=== PATIENT | female | born 1980 | race Caucasian/White ===

== ENCOUNTER 2023-01-13 09:25 | Emergency (ER) | payer MEDICARE, MEDICAID, SELFPAY ==
[2023-01-13 09:30] VITALS: BP 154/94; PULSE 92; RESP 20; TEMP 36.6; O2SAT 97; BMI 25.8
--- NOTE | 2023-01-13 09:40 | XR_ITS ---
The [address] [address] Patient Name: ORALIA WHITFIELD MRN: [id number] date: 1980 Sex: F Assigned Patient Location: ED.MAIN Current Patient Location: ER Accession/Order Number: [id number] Exam Date: 01/13/2023 10:19 Report Date: 01/13/2023 10:48 At the request of: JESSIKA HERNANDEZ Procedure: XR shoulder LT min 2V PROCEDURE: XR shoulder LT min 2V HISTORY: left shoulder pain ; found on floor; left shoulder bruising COMPARISON: None. FINDINGS: BONES:Acute fracture of the distal left clavicle with inferior displacement of the distal and proximally one full bone width. Intact appearance of the acromioclavicular joint and glenohumeral joint. SOFT TISSUES:No visible soft tissue swelling. EFFUSION:None visible. OTHER: Negative. XR/XR shoulder LT min 2V IMPRESSION: 1. Acute, inferiorly displaced fracture of the distal left clavicle. Electronically authenticated by: DELMY CHÁVEZ Date: 01/13/2023 10:48
--- NOTE | 2023-01-13 09:40 | XR_ITS ---
The [address] [address] Patient Name: ORALIA WHITFIELD MRN: [id number] date: 1980 Sex: F Assigned Patient Location: ED.MAIN Current Patient Location: ER Accession/Order Number: [id number] Exam Date: 01/13/2023 10:19 Report Date: 01/13/2023 10:51 At the request of: JESSIKA HERNANDEZ Procedure: XR hip LT 2V w/ pelvis PROCEDURE: XR hip LT 2V w/ pelvis HISTORY: left hip pain ; found on ground COMPARISON: None. FINDINGS: BONES:No fracture, acute abnormality, or significant arthropathy. SOFT TISSUES:No visible soft tissue swelling. EFFUSION:None visible. OTHER: Negative. XR/XR hip LT 2V w/ pelvis IMPRESSION: 1. No acute bone abnormality or significant degenerative changes. Electronically authenticated by: DELMY CHÁVEZ Date: 01/13/2023 10:51
--- NOTE | 2023-01-13 10:54 | ED.GENADUL1 ---
HPI - General Adult General Chief complaint: Extremity Injury, Upper Stated complaint: POSS. DISLOCATION L SHOULDER Time Seen by Provider: 01/13/23 09:34 Source: caregiver Mode of arrival: walk-in Limitations: language barrier History of Present Illness HPI narrative: patient fell yesterday and injured the left thigh and the left shoulder. She received motrin this morning for pain. [facility]. No injury to the head or neck and no LOC. She is able to ambulate Related Data Home Medications Medication Instructions Recorded Confirmed benztropine 2 mg tablet 2 mg PO DAILY 01/13/23 01/13/23 cholecalciferol (vitamin D3) 50 50 mcg PO DAILY 01/13/23 01/13/23 mcg (2,000 unit) tablet divalproex 500 mg tablet,extended 1,000 mg PO BEDTIME 01/13/23 01/13/23 release 24 hr estradiol 1 mg tablet 1 mg PO DAILY 01/13/23 01/13/23 fluphenazine HCl 5 mg tablet 5 mg PO TID 01/13/23 01/13/23 fluvoxamine 100 mg tablet 100 mg PO DAILY 01/13/23 01/13/23 loratadine 10 mg tablet 10 mg PO Q24H 01/13/23 01/13/23 melatonin 5 mg tablet 5 mg PO BEDTIME 01/13/23 01/13/23 nitrofurantoin macrocrystal 100 mg 100 mg PO Q24H 01/13/23 01/13/23 capsule omeprazole 40 mg capsule,delayed 40 mg PO DAILY 01/13/23 01/13/23 release paliperidone 6 mg tablet,extended 12 mg PO Q24H 01/13/23 01/13/23 release 24 hr Allergies Allergy/AdvReac Type Severity Reaction Status Date / Time morphine Allergy Unknown Verified 01/13/23 09:35 Milk Containing Products AdvReac Unknown Verified 01/13/23 09:35 (Dairy) Exam Narrative Exam Narrative: Nurses note and vital signs reviewed and patient is not hypoxic. afebrile General: The patient appears well and in no apparent distress. Patient is resting comfortably on cart. GCS = 15. Skin: Warm, dry, no pallor noted. Head: Normocephalic, atraumatic Neck: Supple, trachea mid-line. Full ROM and no cervical spinal tenderness. Eyes: PERRLA, EOMI ENT: TMs clear, no hemotympanum detected, no blood in posterior oropharynx Cardiovascular: Regular Rate and Rhythm Respiratory: Patient is in no distress, no accessory muscle use, lungs are clear to auscultation, no wheezing, rales or rhonchi Chest Wall: no tenderness, no flail chest, contusion, abrasion, or signs of trauma. Back: No thoracic or lumbar tenderness to palpation. Negative straight leg raise bilaterally. Musculoskeletal: Tenderness, swelling and ecchymosis to the left clavicle and left shoulder. Remainder of left UE is normal. Tenderness and ecchymosis to the left proximal thigh laterally and into the left hip. No bony tenderness to the left thigh/femur, left knee, ankle or foot. Pulses at femoral, DP, PT, and popliteal were 2+ bilaterally. Moves all four extremities in all modalities with 5/5 strength. GI: Normal bowel sounds, no tenderness to palpation, no masses appreciated. No rebound, guarding, or rigidity noted. Neurological: awake and alert, follows commands and answwers basic questions. Normal equal oncology consultant strength, normal motor, normal sensory, no truncal ataxia or unsteady gait. Psychiatric: Cooperative Constitutional Vital Signs, click to edit/add: Last Vital Signs Temp 97.8 F 01/13/23 09:30 Pulse 92 H 01/13/23 09:30 Resp 20 01/13/23 09:30 BP 154/94 H 01/13/23 09:30 Pulse Ox 97 01/13/23 09:30 O2 Del Method Room Air 01/13/23 09:30 Course Vital Signs Vital signs: Vital Signs Temperature 97.8 F 01/13/23 09:30 Pulse Rate 92 H 01/13/23 09:30 Respiratory Rate 20 01/13/23 09:30 Blood Pressure 154/94 H 01/13/23 09:30 Pulse Oximetry 97 01/13/23 09:30 Oxygen Delivery Method Room Air 01/13/23 09:30 Temperature 97.8 F 01/13/23 09:30 Pulse Rate 92 H 01/13/23 09:30 Respiratory Rate 20 01/13/23 09:30 Blood Pressure 154/94 H 01/13/23 09:30 Pulse Oximetry 97 01/13/23 09:30 Oxygen Delivery Method Room Air 01/13/23 09:30 Medical Decision Making MDM Narrative Medical decision making narrative: acute left clavicle fracture identified. Pelvic and hip xrays unremarkable. Dr Fernandez informed and will see the patient on Tuesday at 830am. ED nurse applied a sling to the patient's left UE - patient neurovascularly intact distally afterward. Imaging Data xr shoulder: Radiologist's impression: Patient Name: ORALIA WHITFIELD MRN: [id number] date: 1980 Sex: F Assigned Patient Location: ED.MAIN Current Patient Location: ER Accession/Order Number: [id number] Exam Date: 01/13/2023 10:19 Report Date: 01/13/2023 10:48 At the request of: JESSIKA HERNANDEZ Procedure: XR shoulder LT min 2V PROCEDURE: XR shoulder LT min 2V HISTORY: left shoulder pain ; found on floor; left shoulder bruising COMPARISON: None. FINDINGS: BONES:Acute fracture of the distal left clavicle with inferior displacement of the distal and proximally one full bone width. Intact appearance of the acromioclavicular joint and glenohumeral joint. SOFT TISSUES:No visible soft tissue swelling. EFFUSION:None visible. OTHER: Negative. IMPRESSION: 1. Acute, inferiorly displaced fracture of the distal left clavicle. Electronically authenticated by: SEBASTIEN CHÁVEZ Date: 01/13/2023 10:48 xr left hip & pelvis: Radiologist's impression: Patient Name: ORALIA WHITFIELD MRN: [id number] date: 1980 Sex: F Assigned Patient Location: ED.MAIN Current Patient Location: ER Accession/Order Number: [id number] Exam Date: 01/13/2023 10:19 Report Date: 01/13/2023 10:51 At the request of: JESSIKA HERNANDEZ Procedure: XR hip LT 2V w/ pelvis PROCEDURE: XR hip LT 2V w/ pelvis HISTORY: left hip pain ; found on ground COMPARISON: None. FINDINGS: BONES:No fracture, acute abnormality, or significant arthropathy. SOFT TISSUES:No visible soft tissue swelling. EFFUSION:None visible. OTHER: Negative. IMPRESSION: 1. No acute bone abnormality or significant degenerative changes. Electronically authenticated by: SEBASTIEN CHÁVEZ Date: 01/13/2023 10:51 Discharge Plan Discharge Chief Complaint: Extremity Injury, Upper Clinical Impression: Contusion of left hip and thigh, Abrasion, Fracture of clavicle, left, closed Patient Disposition: Home, Self-Care Time of Disposition Decision: 10:52 Prescriptions / Home Meds: No Action omeprazole 40 mg capsule,delayed release(DR/EC) 40 mg PO DAILY estradiol 1 mg tablet 1 mg PO DAILY paliperidone 6 mg tablet extended release 24hr 12 mg PO Q24H fluphenazine HCl 5 mg tablet 5 mg PO TID benztropine 2 mg tablet 2 mg PO DAILY fluvoxamine 100 mg tablet 100 mg PO DAILY divalproex 500 mg tablet extended release 24 hr 1,000 mg PO BEDTIME loratadine 10 mg tablet 10 mg PO Q24H melatonin 5 mg tablet 5 mg PO BEDTIME nitrofurantoin macrocrystal 100 mg capsule 100 mg PO Q24H cholecalciferol (vitamin D3) 50 mcg (2,000 unit) tablet 50 mcg PO DAILY Instructions: Clavicle Fracture (ED), Contusion in Adults (ED) Stand Alone Forms: Portal Instructions Referrals: Sebastien Fernandez MD [Physician] - 01/17/23 (call today to schedule an appointment Tuesday)
== END 2023-01-13 11:05 | disposition home or self-care (01) ==
PROVIDERS: Emergency Provider Emergency Medicine
DX: S42.032A Displaced fracture of lateral end of left clavicle, initial encounter for closed fracture (principal); S70.02XA Contusion of left hip, initial encounter; S70.12XA Contusion of left thigh, initial encounter; S40.212A Abrasion of left shoulder, initial encounter; W19.XXXA Unspecified fall, initial encounter; Z79.899 Other long term (current) drug therapy
CPT/HCPCS: 73030; 73502; 99284

== ENCOUNTER 2023-02-14 08:25 | Outpatient (OUT) | payer MEDICARE, MEDICAID, SELFPAY ==
--- NOTE | 2023-02-14 08:30 | XR_ITS ---
The [address] [address] Patient Name: ORALIA WHITFIELD MRN: [id number] date: 1980 Sex: F Assigned Patient Location: [facility] Current Patient Location: [facility] Accession/Order Number: [id number] Exam Date: 02/14/2023 08:30 Report Date: 02/14/2023 09:15 At the request of: DELMY JACINTO Procedure: XR clavicle LT Exam: Radiographs: XR clavicle LT Reason for exam: closed non displaced fracture of acromial end of left clavic Comparison: Plain films dated 01/13/2023 XR/XR clavicle LT IMPRESSION: Displaced comminuted acute to subacute distal left clavicle fracture with some foreshortening present. No definite disruption of the AC joint. Appearance is similar to that on 01/13/2023 although the degree of foreshortening may be slightly worsened. Remainder of the left clavicle radiographs is unremarkable. Electronically authenticated by: DONNELL FELIX Date: 02/14/2023 09:15
== END 2023-02-14 08:26 | disposition home or self-care (01) ==
LOC: RAD 08:25
PROVIDERS: Visit Provider Orthopaedic Surgery
DX: S42.035A Nondisplaced fracture of lateral end of left clavicle, initial encounter for closed fracture (principal)
CPT/HCPCS: 73000

== ENCOUNTER 2023-03-14 08:27 | Outpatient (OUT) | payer MEDICARE, MEDICAID, SELFPAY ==
--- NOTE | 2023-03-14 08:42 | XR_ITS ---
[address] [address] Patient Name: ORALIA WHITFIELD MRN: [id number] date: 1980 Sex: F Assigned Patient Location: [facility] Current Patient Location: [facility] Accession/Order Number: [id number] Exam Date: 03/14/2023 08:50 Report Date: 03/14/2023 10:19 At the request of: DELMY JACINTO Procedure: XR clavicle LT PROCEDURE: XR clavicle LT COMPARISON: 02/14/2023 HISTORY: Closed Nondisplaced Fracture Of Left Clavical S42.035A FINDINGS: BONES:Stable complex distal left clavicle fracture with cranial displacement of the proximal clavicle of 1.8 cm. Interval development of heterotopic ossification/callus SOFT TISSUES:Negative. No visible soft tissue swelling. EFFUSION:None visible. OTHER: Negative. XR/XR clavicle LT IMPRESSION: Stable distal clavicle fracture Electronically authenticated by: BRITANY KAPOOR Date: 03/14/2023 10:19
== END 2023-03-14 08:28 | disposition home or self-care (01) ==
LOC: RAD 08:27
PROVIDERS: Visit Provider Orthopaedic Surgery
DX: S42.035A Nondisplaced fracture of lateral end of left clavicle, initial encounter for closed fracture (principal)
CPT/HCPCS: 73000

== ENCOUNTER 2023-04-11 10:03 | Outpatient (OUT) | payer MEDICARE, MEDICAID, SELFPAY ==
--- NOTE | 2023-04-11 10:10 | XR_ITS ---
The [address] [address] Patient Name: ORALIA WHITFIELD MRN: [id number] date: 1980 Sex: F Assigned Patient Location: [facility] Current Patient Location: [facility] Accession/Order Number: [id number] Exam Date: 04/11/2023 10:13 Report Date: 04/11/2023 16:46 At the request of: DELMY JACINTO Procedure: XR clavicle LT EXAM: XR clavicle LT HISTORY: Closed Nondisplaced Fracture Acromial End Left Clavicle COMPARISON: Left clavicle series dated 03/14/2023. TECHNIQUE: 2 view left clavicle series performed. FINDINGS: Stable acute comminuted displaced fracture of the distal left clavicle. There are no findings of healing such as osteolysis of the fracture margins, periostitis, callus or osseous union. The left AC joint is otherwise maintained. The left glenohumeral reticulation is unremarkable. Visualized portions of the ribs are unremarkable. XR/XR clavicle LT IMPRESSION: Stable acute comminuted displaced fracture of the distal left clavicle. There are no findings of healing such as osteolysis of the fracture margins, periostitis, callus or osseous union. Electronically authenticated by: MARCOS RIOS Date: 04/11/2023 16:46
== END 2023-04-11 10:04 | disposition home or self-care (01) ==
LOC: RAD 10:03
PROVIDERS: Visit Provider Orthopaedic Surgery
DX: S42.035A Nondisplaced fracture of lateral end of left clavicle, initial encounter for closed fracture (principal)
CPT/HCPCS: 73000

== ENCOUNTER 2023-12-31 17:32 | Emergency (ER) | payer MEDICARE, MEDICAID, SELFPAY ==
--- OUTSIDE RECORDS SUMMARY | 2023-12-31 17:59 | XMS_ITS | CCD ---
[facility] Organization [facility] Team Providers Care Billboard Installer Name Role Phone KIERAN DIAZ Unavailable Unavailable NICKIE DESHPANDE Admitting Unavailable NICKIE DESHPANDE Attending Unavailable INDY GRUBER Primary Care Unavailable NICKIE DESHPANDE Consulting Unavailable DR DELMY CHÁVEZ Consulting Unavailable Francis ENRIQUEZ, Roxana Buchanan Referring Unavailable Rashi Gruber MD Primary Care Unavailable Rosa Call Attending Unavailable Yasmani ANDRES, Rashi Nugent Primary Care Unavailable Wayne Coronel MD Attending Unavailable Rashi Gruber MD Primary Care Unavailable Berna ANDRES, Wayne Galvan Attending Unavailable Yasmani ANDRES, Rashi Nugent Primary Care Unavailable Berna ANDRES, Wayne Galvan Attending Unavailable Yasmani ANDRES, Rashi Nugent Primary Care Unavailable Wayne Coronel MD Attending Unavailable Rashi Gruber MD Primary Care Unavailable Wayne Coronel MD Attending Unavailable Rashi Gruber MD Primary Care Unavailable Wayne Coronel MD Attending Unavailable Rashi Gruber MD Primary Care Unavailable Francis ENRIQUEZ, Roxana Buchanan Attending Unavailable Rashi Gruber MD Primary Care Unavailable Wayne Coronel MD Attending Unavailable Rashi Gruber MD Primary Care Unavailable Wayne Coronel MD Attending Unavailable Rashi Gruber MD Primary Care Unavailable Francis ENRIQUEZ, Roxana Buchanan Attending Unavailable Rashi Gruber MD Primary Care Unavailable Francis ENRIQUEZ, Roxana Buchanan Attending Unavailable Francis ENRIQUEZ, Roxana Buchanan Attending Unavailable Rashi Gruber MD Primary Care Unavailable Rashi Gruber MD Primary Care Unavailable Berna ANDRES, Wayne Galvan Attending Unavailable Yasmani ANDRES, Rashi Nugent Primary Care Unavailable Yasmani ANDRES, Rashi Nugent Attending Unavailable Yasmani ANDRES, Rashi Nugent Primary Care Unavailable Yasmani ANDRES, Rashi Nugent Attending Unavailable Yasmani ANDRES, Rashi Nugent Primary Care Unavailable Dany ENRIQUEZ, Rosa James Attending Unavailable Allergies Allergy Classification Reported Allergen(s) Allergy Type Date of Onset Reaction(s) Facility (2 sources) Morphine; Translations: [morphine] Drug Allergy [facility] Repository Problems Active Problems Problem Classification Problem Date Documented Da te Episodic/Chronic Developmental disorders (1 source) Unspecified intellectual disabilities; Translations: [UNSPEC INTELLECTUAL DISABILITIES] Onset: 08-24-2022 Chronic E Codes: Fall (1 source) Unspecified fall, initial encounter; Translations: [UNSPECIFIED FALL INITIAL ENCOUNTER] Onset: 08-24-2022 Episodic Other aftercare (1 source) Other rodent exterminator (current) drug therapy; Translations: [OTH BAND BIAS MACHINE OPERATOR CURRENT DRUG THERAPY] Onset: 08-24-2022 Episodic Other connective tissue disease (3 sources) Other specified soft tissue disorders; Translations: [OTHER SPEC SOFT TISSUE DISORDERS] Onset: 08-23-2022 Episodic Other injuries and conditions due to external causes (1 source) Injury of head; Translations: [Head Injury] Onset: 10-08-2017 Episodic Superficial injury; contusion (1 source) Contusion of left foot, initial encounter; Translations: [CONTUSION LEFT FOOT INITIAL ENC] Onset: 08-24-2022 Episodic Unclassified (1 source) Unspecified injury of head, initial encounter / S09.90XA(ICD-10) Onset: 10-08-2017 Unclassified (1 source) Unknown / UNK(Unknown) Onset: 10-08-2017 Unclassified (1 source) Head Injury / [id number]() Onset: 10-08-2017 Unclassified (1 source) Wrist Injury / [id number]() Onset: 10-08-2017 Unclassified (1 source) Unspecified fracture of lower end of right ulna, initial encounter for closed fracture / S52.601A(ICD-10) Onset: 10-08-2017 Unclassified (1 source) Unspecified fracture of the lower end of right radius, initial encounter for closed fracture / S52.501A(ICD-10) Onset: 10-08-2017 Past or Other Problems Problem Classification Problem Date Documented Da te Episodic/Chronic Unclassified (1 source) Unspecified fracture of the lower end of right radius, initial encounter for closed fracture; Translations: [Unspecified fracture of the lower end of right radius, initial encounter for closed fracture] Onset: 10-08-2017 Unclassified (1 source) Unspecified fracture of lower end of right ulna, initial encounter for closed fracture; Translations: [Unspecified fracture of lower end of right ulna, initial encounter for closed fracture] Onset: 10-08-2017 Unclassified (1 source) Unspecified injury of head, initial encounter; Translations: [Unspecified injury of head, initial encounter] Onset: 10-08-2017 Unclassified (1 source) head injury, R wrist inj, fall Onset: 10-08-2017 Unclassified (1 source) Wrist Injury; Translations: [Wrist Injury] Onset: 10-08-2017 Results Test Name Value Interpretation Reference Range Facility .eGFRon 12-26-2023 GFR/1.73 sq M.predicted MDRD (S/P/Bld) [Vol rate/Area] mL/min/{1.73_m2} Normal >=60 [facility] Comment on above: Result Comment: [facility] have implemented the eGFR calculation approach that does not have a coefficient for race and that conforms to the NKF-ASN Task Force Recommendations. Stages of Chronic Kidney Disease GFR Stage 3a Mild to moderate loss of kidney function 59 to 45 Stage 3b Moderate to severe loss of kidney function 44 to 33 Stage 4 Severe loss of kidney function 29 to 15 Stage 5 Kidney failure Less than 15 GFR calculated using the CKD-Epi Creatinine Equation (2020): eGFR = 142 X min(SCr/?, 1)? X max(SCr /?, 1)-1.200 X 0.9938Age X 1.012 [if female] Abbreviations/Units: eGFR (estimated glomerular filtration rate) = mL/min/1.73 m2 SCr (standardized serum creatinine) = mg/dL ? = 0.7 (females) or 0.9 (males) ? = -0.241 (females) or -0.302 (males) min = indicates the minimum of SCr/? or 1 max = indicates the maximum of SCr/? or 1 Age = years Performed By: #### E GFR #### [address] [address] Basic Metabolic Profileon Anion gap [Moles/Vol] 9 mmol/L Normal 4-12 [facility] Comment on above: Performed By: #### C [id number] #### [address] [address] Calcium [Mass/Vol] 9.5 mg/dL Normal 8.5-10.3 [facility] Comment on above: Performed By: #### C [id number] #### [address] [address] Chloride [Moles/Vol] 100 mmol/L Normal 98-110 [facility] Comment on above: Performed By: #### C [id number] #### [address] [address] CO2 [Moles/Vol] 24 mmol/L Normal 22-32 [facility] Comment on above: Performed By: #### C [id number] #### [address] [address] Creatinine [Mass/Vol] 0.86 mg/dL Normal 0.44-1.03 [facility] Comment on above: Performed By: #### C [id number] #### [address] [address] Glucose [Mass/Vol] 82 mg/dL Normal 70-99 [facility] Comment on above: Performed By: #### C [id number] #### [address] [address] Potassium [Moles/Vol] 4.4 mmol/L Normal 3.4-4.8 [facility] Comment on above: Performed By: #### C [id number] #### [address] [address] Sodium [Moles/Vol] 133 mmol/L Normal 133-142 [facility] Comment on above: Performed By: #### C [id number] #### [address] [address] Urea nitrogen [Mass/Vol] 16 mg/dL Normal 8-26 [facility] Comment on above: Performed By: #### C [id number] #### [address] [address] Urea nitrogen/Creatini ne [Mass ratio] 18.6 mg/mg Normal 10.0-20.0 [facility] Comment on above: Performed By: #### C [id number] #### [address] [address] CBC w/ Diffon 12-26-2023 Erythrocyte distribution width (RBC) [Ratio] 14.9 % High 11.6-14.8 [facility] Comment on above: Performed By: #### C BC #### [address] [address] Hematocrit (Bld) [Volume fraction] 37.8 % Normal 36.0-46.0 [facility] Comment on above: Performed By: #### C BC #### [address] [address] Hemoglobin (Bld) [Mass/Vol] 12.4 g/dL Normal 12.0-16.0 [facility] Comment on above: Performed By: #### C BC #### [address] [address] MCH (RBC) [Entitic mass] 30.2 pg Normal 27.0-35.0 [facility] Comment on above: Performed By: #### C BC #### [address] [address] MCHC 32.9 % Normal 31.0-37.0 [facility] Comment on above: Performed By: #### C BC #### [address] [address] MCV (RBC) [Entitic vol] 91.7 fL Normal 80.0-100.0 [facility] Comment on above: Performed By: #### C BC #### [address] [address] Platelet 149 x10*3/mcL Low 150-450 [facility] Comment on above: Performed By: #### C BC #### [address] [address] Platelet mean volume (Bld) [Entitic vol] 8.7 fL Normal 6.7-10.6 [facility] Comment on above: Performed By: #### C BC #### [address] [address] RBC 4.12 x10*6/mcL Normal 3.80-5.20 [facility] Comment on above: Performed By: #### C BC #### [address] [address] WBC 6.0 x10*3/mcL Normal 4.5-11.0 [facility] Comment on above: Performed By: #### C BC #### [address] [address] Diff Autoon 12-26-2023 Baso Absolute 0.0 x10*3/mcL Normal 0.0-0.2 [facility] Comment on above: Performed By: #### C D:[id number] #### [address] [address] Basophils/100 WBC (Bld) 0.5 % Normal 0.0-1.5 [facility] Comment on above: Performed By: #### C [id number] #### [address] [address] Eos Absolute 0.1 x10*3/mcL Normal 0.0-0.4 [facility] Comment on above: Performed By: #### C [id number] #### [address] [address] Eosinophils/100 WBC (Bld) 2.4 % Normal 0.0-5.4 [facility] Comment on above: Performed By: #### C [id number] #### [address] [address] Lymph Absolute 2.4 x10*3/mcL Normal 1.0-4.8 [facility] Comment on above: Performed By: #### C [id number] #### [address] [address] Lymphocytes/100 WBC (Bld) 40.2 % Normal 27.2-40.8 [facility] Comment on above: Performed By: #### C [id number] #### [address] [address] Bureau Absolute 0.5 x10*3/mcL Normal 0.1-1.1 [facility] Comment on above: Performed By: #### C [id number] #### [address] [address] Monocytes/100 WBC (Bld) 7.8 % Normal 3.7-11.9 [facility] Comment on above: Performed By: #### C D:[id number] #### [address] [address] Neutro Absolute 2.9 x10*3/mcL Normal 1.8-7.7 [facility] Comment on above: Performed By: #### C D:[id number] #### [address] [address] Neutro Auto 49.1 % Normal 47.2-70.8 [facility] Comment on above: Performed By: #### C [id number] #### [address] [address] Hep Func Panelon 12-26-2023 Albumin [Mass/Vol] 4.4 g/dL Normal 3.2-4.9 [facility] Comment on above: Performed By: #### L THERESE #### [address] [address] Alk Phos 58 IU/L Normal 32-91 [facility] Comment on above: Performed By: #### L IVER #### [address] [address] ALT [Catalytic activity/Vol] 36 U/L Normal 14-54 [facility] Comment on above: Performed By: #### L IVER #### [address] [address] AST [Catalytic activity/Vol] 27 U/L Normal 15-41 [facility] Comment on above: Performed By: #### L IVER #### [address] [address] Bili Direct 0.1 mg/dL Normal 0.1-0.5 [facility] Comment on above: Performed By: #### L IVER #### [address] [address] Bili Indirect 0.4 mg/dL Normal 0.0-1.0 [facility] Comment on above: Performed By: #### L IVER #### [address] [address] Bili Total 0.5 mg/dL Normal 0.3-1.2 [facility] Comment on above: Performed By: #### L IVER #### [address] [address] Protein [Mass/Vol] 7.8 g/dL Normal 6.5-8.1 [facility] Comment on above: Performed By: #### L IVER #### [address] [address] TSHon 12-26-2023 TSH Qn 2.13 m[IU]/L Normal 0.45-5.33 [facility] Comment on above: Result Comment: Refe rence Ranges for individuals from to 18 years of age were obtained from The Stacy Hilton Handbook (20 ed) published by [facility]. Reference Ranges for Females: Females, 1st Trimester 0.05 ? 3.7 uIU/mL Females, 2nd Trimester 0.31 ? 4.35 uIU/mL Females, 3rd Trimester 0.41 ? 5.18 uIU/mL Performed By: #### T #### [facility] [address] [place] [address] Valproicon 12-26-2023 Valproic Acid Level 102.3 mcg/mL High 50.0-100.0 [facility] Comment on above: Performed By: #### C D:[id number] #### [facility] [address] [place] [address] Urology Office/Clinic Noteon 11-11-2023 Urology Office/Clinic Note Chief Complaint New patient here for urinary inciontinence. History of Present Illness Last seen by our urological team New referral for urinary incontinence and frequency. Patient comes with: Caregiver 43 Years, Female Progress This is a 9 verbal patient who comes with her caregivers. Of the information obtained was from the caregivers. Main concern is the patient's urinary incontinence and frequency. They states this has been going on for approximately 1 year however has become worse over the last several months. She was treated for UTI prophylactically without relief of symptoms. They are unsure if this is a behavior caused by a visit home. They placed the patient in pads and used Chux pads and she was out of her typical toileting routine. Also concerned that may be it is a progression of a problem. She typically urinates every hour, they are currently doing timed voids to attempt to decrease incontinence episodes. She still has incontinence during the day, using 10+ pads. She does have a strong stream. Postvoid dribble. Empties her bladder well current PVR is 12 mL. No signs or symptoms of infection via urine dip today. She drinks mainly water, no bladder irritants. Discussed attempting medication for urinary frequency and incontinence. Review of Systems unable to obtain ROS due to patient non verbal status Physical Exam Vitals & Measurements HT: 149 cm WT: 75.5 kg WT: 75.5 kg (Dosing) BMI: 34.01 General: alert, non-toxic, no distress, well developed Neuro: no slurred speech, appropriate with questions and responses : deferred recent pelvic exam performed by PANEL RAISER OPERATOR, negative findings per their report Additional Vitals No qualifying data available. Assessment/Plan 1. Urinary incontinence Worsening incontinence over the last several months. She went from having some leakage with urination to now requiring pads/depends as well as extra pads on the bed/chairs. Tensional behavior as she was taken out of her routine and voiding schedule. Staff is attempting to get her back on timed voiding's and toileting habits. Will start mirabegron 50 mg to evaluate for efficacy. This may assist patient with her incontinence. Follow-up in 1 to 2 months. 2. Urinary frequency Discussed bladder irritants. Patient is not drinking any caffeine, soda, coffee, tea. Starting medication as above Orders: mirabegron, 1 tabs, Oral, Daily, do not crush or chew, # 30 tabs, 0 Refill(s), Pharmacy: [facility] Medical Decision Making Chronic conditions NOT treated during this visit that affected my overall medical decision making: [] Treatment plans discussed but not opted for at this time: [] Prescribed medication that requires intensive monitoring for toxicity: [] I have reviewed the patient?s medication list for medication interactions/contraindic ations and/or for upcoming procedures: [yes] Time Spent with the Patient I have personally spent [] minutes on this date, directly related to today's patient visit, including pre and post visit work, for this date of service. Time listed does not include time spent on separately billable services. Problem List/Past Medical History Ongoing Autism Chronic constipation Fibromyalgia Seizures Historical No qualifying data Procedure/Surgical History pins in wrist oophorectomy total LP hysterectomy Medications benztropine 2 mg oral tablet, 2 mg= 1 tabs, Oral, HS (at bedtime), 3 refills chlorproMAZINE 100 mg oral tablet, 100 mg= 1 tabs, Oral, TID, 2 refills, increased dose divalproex sodium 500 mg oral tablet, extended release, See Instructions, 2 refills, TAKE 2 TABLETS BY MOUTH AT BEDTIME fluvoxaMINE 100 mg oral tablet, See Instructions, 2 refills, TAKE 1 TABLET BY MOUTH AT BEDTIME hydrOXYzine hydrochloride 25 mg oral tablet, See Instructions, TAKE 1 TABLET BY MOUTH THREE TIMES DAILY ibuprofen 200 mg oral tablet, 400 mg= 2 tabs, Oral, q8hr, PRN, 1 refills, 2 tabs every 8 hours as needed for headache or backache loratadine 10 mg oral tablet, 10 mg= 1 tabs, Oral, Daily, 3 refills Melatonin 10 mg oral tablet, disintegrating, 10 mg= 1 tabs, Oral, HS (at bedtime), 1 refills, increased dose mirabegron 50 mg oral tablet, extended release, 50 mg= 1 tabs, Oral, Daily, do not crush or chew nitrofurantoin macrocrystals 100 mg oral capsule, 100 mg= 1 caps, Oral, Daily, 3 refills ohm Allergy Relief 10 mg oral tablet, 90 EA, 0 Refill(s), TAKE 1 TABLET BY MOUTH DAILY omeprazole 40 mg oral delayed release capsule, 40 mg= 1 caps, Oral, Daily, 3 refills paliperidone 6 mg oral tablet, extended release, See Instructions, 2 refills, TAKE 2 TABLETS BY MOUTH EVERY MORNING Probiotic Formula oral capsule, 1 caps, Oral, Daily, 3 refills RA P-COL RITE 8.6MG/50MG TAB, See Instructions, 6 refills, take 2 tablets by mouth at bedtime RA SENNA 8.6 MG TABLET, See Instructions, 11 refills, take 2 tablets by mouth once daily Vitamin D3 2000 intl units oral tablet, See Instructio (more content not included)... Normal [facility] Gynecology Office/Clinic Not black 09-01-2023 Gynecology Office/Clinic Note Chief Complaint UI, Hx hyst 2006. History of Present Illness Here with Railroad Car Repairman non verbal hyst with ovaries removed. Railroad Car Repairman reports she is sedentary start UI again after trip to [facility] and [facility]. Macrobid daily Review of Systems Cough: No SOB: No Chest pain: No Fatigue: No Fever/chills: No Nausea/vomiting: No Urinary frequency: No Urinary pain: No Back pain: No Abdominal/pelvic pain: No Abnormal vaginal bleeding: No Lower Extremity Bilaterally pain, redness or edema: No Physical Exam Vitals & Measurements BP: 138/86 HT: 149 cm WT: 79.6 kg WT: 79.6 kg (Dosing) BMI: 35.85 General: Alert and oriented x 3, well nourished, no acute distress, Psychiatric: Cooperative, appropriate mood and affect for her medical dx. Urethra: Normal urethral meatus, no lesions, No CVT bilaterally Groin: no lymphadenopathy Vulva: No lesions, skin intact with no discoloration, no inflammation, no obvious cystocele Vagina: unable to tolerate speculum exam Cervix: as above Uterus: Normal shape , non tender, mobile, no suprapubic tenderness Adnexa: Non tender, no masses Anus: No lesions Skin: Skin is warm, dry and pink, no rashes or lesions Additional Vitals BP Position/Location: Sitting, Right arm Assessment/Plan 1. Urinary incontinence in female No evidence of Acute UTI/Pyelonephritis at risk for UTI, unable to get urine and on Macrobid daily 64 oz water daily Minimal caffeine Continue Macrobid daily. Start Keflex with probiotic Call if continued symptoms after ATB and re training bladder. manager collection believes it was due to change in environment and wearing pads at that time. 2. Menopausal state No evidence of vaginal bleeding,OR vaginal infection She will call if vaginal bleeding OTC Vitamin D 2000 IU and weight bearing exercise (30 minutes) daily for bone health At risk for heart attack post menopausal, importance to eat low fat and take Cholesterol medication Stop Estrogen due to sedentary lifestyle and risk for thrombi. Orders: bifidobacterium-lactobac illus, 1 caps, Oral, Daily, # 90 caps, 3 Refill(s), Pharmacy: [facility] cephalexin, 1 caps, Oral, q12hr, X 7 days, # 14 caps, 0 Refill(s), 09/08/23 10:44:00 EDT, Pharmacy: [facility] nitrofurantoin, 1 caps, Oral, Daily, # 90 caps, 3 Refill(s), Pharmacy: [facility] Medical Decision Making Chronic conditions NOT treated during this visit that affected my overall medical decision making: [] Treatment plans discussed but not opted for at this time: [] Prescribed medication that requires intensive monitoring for toxicity: [] I have reviewed the patient?s medication list for medication interactions/contraindic ations and/or for upcoming procedures: [yes or no] Time Spent with the Patient I have personally spent [] minutes on this date, directly related to today's patient visit, including pre and post visit work, for this date of service. Time listed does not include time spent on separately billable services. Problem List/Past Medical History Ongoing Autism Chronic constipation Fibromyalgia Seizures Historical No qualifying data Procedure/Surgical History pins in wrist oophorectomy total LP hysterectomy Laparoscopic hysterectomy Oophorectomy Medications benztropine 2 mg oral tablet, 2 mg= 1 tabs, Oral, HS (at bedtime), 3 refills chlorproMAZINE 100 mg oral tablet, 100 mg= 1 tabs, Oral, BID, 2 refills chlorproMAZINE 50 mg oral tablet, 1 tabs, Oral, BID divalproex sodium 500 mg oral tablet, extended release, See Instructions, 2 refills estradiol 1 mg oral tablet, See Instructions fluvoxaMINE 100 mg oral tablet, See Instructions, 2 refills hydrOXYzine hydrochloride 25 mg oral tablet, See Instructions, 6 refills hydrOXYzine hydrochloride 25 mg oral tablet, 25 mg= 1 tabs, Oral, TID, 1 refills ibuprofen 200 mg oral tablet, 400 mg= 2 tabs, Oral, q8hr, PRN, 1 refills Keflex 500 mg oral capsule, 500 mg= 1 caps, Oral, q12hr loratadine 10 mg oral tablet, 10 mg= 1 tabs, Oral, Daily, 3 refills Melatonin 10 mg oral tablet, disintegrating, 10 mg= 1 tabs, Oral, HS (at bedtime), 1 refills nitrofurantoin macrocrystals 100 mg oral capsule, See Instructions ohm Allergy Relief 10 mg oral tablet omeprazole 40 mg oral delayed release capsule, 40 mg= 1 caps, Oral, Daily, 3 refills paliperidone 6 mg oral tablet, extended release, See Instructions, 2 refills Probiotic Formula oral capsule, 1 caps, Oral, Daily, 3 refills RA P-COL RITE 8.6MG/50MG TAB, See Instructions, 6 refills RA SENNA 8.6 MG TABLET, See Instructions, 11 refills Vitamin D3 2000 intl units oral tablet, See Instructions Allergies morphine (unknown) Social History Alcohol Never Employment/School Unemployed, Highest education level: High school. Home/Environment Lives with Roomates, independant living. Alcohol abuse in household: No. Substance abuse in household: No. Smoker in house (more content not included)... Normal [facility] .eGFRon 04-01-2023 GFR/1.73 sq M.predicted MDRD (S/P/Bld) [Vol rate/Area] mL/min/{1.73_m2} Normal >=60 [facility] Comment on above: Result Comment: [facility] have implemented the eGFR calculation approach that does not have a coefficient for race and that conforms to the NKF-ASN Task Force Recommendations. Stages of Chronic Kidney Disease GFR Stage 3a Mild to moderate loss of kidney function 59 to 45 Stage 3b Moderate to severe loss of kidney function 44 to 33 Stage 4 Severe loss of kidney function 29 to 15 Stage 5 Kidney failure Less than 15 GFR calculated using the CKD-Epi Creatinine Equation (2020): eGFR = 142 X min(SCr/?, 1)? X max(SCr /?, 1)-1.200 X 0.9938Age X 1.012 [if female] Abbreviations/Units: eGFR (estimated glomerular filtration rate) = mL/min/1.73 m2 SCr (standardized serum creatinine) = mg/dL ? = 0.7 (females) or 0.9 (males) ? = -0.241 (females) or -0.302 (males) min = indicates the minimum of SCr/? or 1 max = indicates the maximum of SCr/? or 1 Age = years Performed By: #### C [id number] #### [address] [address] Basic Metabolic Profileon Anion gap [Moles/Vol] 13 mmol/L Normal 7-17 [facility] Comment on above: Performed By: #### C D:[id number] #### [address] [address] Calcium [Mass/Vol] 9.9 mg/dL Normal 8.5-10.3 [facility] Comment on above: Performed By: #### C D:[id number] #### [address] [address] Chloride [Moles/Vol] 105 mmol/L Normal 98-110 [facility] Comment on above: Performed By: #### C [id number] #### [address] [address] CO2 [Moles/Vol] 24 mmol/L Normal 22-32 [facility] Comment on above: Performed By: #### C [id number] #### [address] [address] Creatinine [Mass/Vol] 0.74 mg/dL Normal 0.44-1.03 [facility] Comment on above: Performed By: #### C [id number] #### [address] [address] Glucose [Mass/Vol] 92 mg/dL Normal 70-99 [facility] Comment on above: Performed By: #### C [id number] #### [address] [address] Potassium [Moles/Vol] 4.6 mmol/L Normal 3.4-4.8 [facility] Comment on above: Performed By: #### C [id number] #### [address] [address] Sodium [Moles/Vol] 137 mmol/L Normal 133-142 [facility] Comment on above: Performed By: #### C [id number] #### [address] [address] Urea nitrogen [Mass/Vol] 14 mg/dL Normal 8-26 [facility] Comment on above: Performed By: #### C [id number] #### [address] [address] Urea nitrogen/Creatini ne [Mass ratio] 18.9 mg/mg Normal 10.0-20.0 [facility] Comment on above: Performed By: #### C [id number] #### [address] [address] Hgb A1con 04-01-2023 Glucose [Mass/Vol] 100 mg/dL Normal 68-114 [facility] Comment on above: Result Comment: Math ematical Calc approx. The mean gluc equivalency of A1c Performed By: #### C [id number] #### [address] [address] Hgb A1c 5.1 % A1c Normal 4.0-5.6 [facility] Comment on above: Result Comment: Refe rence Range: 4.0 - 5.6 % Normal 5.7 - 6.4 % Pre-Diabetes > 6.5 % Diabetes Performed By: #### C [id number] #### [facility] [address] [place] [address] C Urineon 02-12-2023 C Urine ---- Final 10-15,000 cfu/ml Mixed gram positive ashwini isolated. This urine contains 3 or more organisms which is inconsistent with clean catch collection. Consider the possibility of contamination during collection. No identification or susceptibility performed as results would be misleading Normal [facility] Comment on above: Performed By: #### U RC #### [address] [address] Family Medicine Office/Clini c Noteon 02-10-2023 Family Medicine Office/Clinic Note Chief Complaint Other History of Present Illness here with printing gray cloth tender concern for possible UTI- reported burning and increase in frequency- no fever; no gross hematuria- is on daily prophylactic antibiotic with nitrofurantoin- had recent (L) clavicular fracture; in sling- appetite reviewed- had recent labs done at [facility]; results not available to me- patient mother had concern for ankle swelling; though no edema notable today- legs are often dependent however- BP appears controlled- Review of Systems Constitutional: [No fevers, chills, sweats] ENMT: [No ear pain, nasal congestion, sore throat] Respiratory: [No shortness of breath, cough] Cardiovascular: [No Chest pain, palpitations, syncope] Gastrointestinal: [No nausea, vomiting, diarrhea] Genitourinary: [see HPI Physical Exam Vitals & Measurements HR: 80 (Peripheral) BP: 128/78 SpO2: 98 HT: 155 cm WT: 82.0 kg WT: 82.0 kg (Dosing) BMI: 34.13 General: [Alert and oriented, well nourished, no acute distress]. HENT: [Normocephalic, clear tympanic membrane Lungs: [Clear to auscultation non-labored respiration]. Heart: [Normal rate, regular rhythm, no murmur Extr: no edema, no erythema, no ulceration Neurologic: [Awake, alert Psychiatric: [Cooperative, appropriate Additional Vitals BP Position/Location: Sitting, Left arm Assessment/Plan 1. Dysuria 2. Autism 3. Seizures 4. 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 Time listed does not include time spent on separately billable services. Problem List/Past Medical History Ongoing Autism Chronic constipation Fibromyalgia Seizures Historical No qualifying data Procedure/Surgical History Laparoscopic hysterectomy oophorectomy Oophorectomy pins in wrist total LP hysterectomy Medications benztropine 2 mg oral tablet, 2 mg= 1 tabs, Oral, HS (at bedtime), 3 refills divalproex sodium 500 mg oral tablet, extended release, See Instructions Estrace 1 mg oral tablet, 1 mg= 1 tabs, Oral, Daily, 11 refills estradiol 1 mg oral tablet, See Instructions fluPHENAZine 5 mg oral tablet, See Instructions fluvoxaMINE 100 mg oral tablet, See Instructions ibuprofen 200 mg oral tablet, 400 mg= 2 tabs, Oral, q8hr, PRN, 1 refills loratadine 10 mg oral tablet, 10 mg= 1 tabs, Oral, Daily, 3 refills Macrodantin 100 mg oral capsule, 100 mg= 1 caps, Oral, Daily, 11 refills Melatonin 5 mg oral tablet, See Instructions omeprazole 40 mg oral delayed release capsule, 40 mg= 1 caps, Oral, Daily, 3 refills paliperidone 6 mg oral tablet, extended release, See Instructions RA P-COL RITE 8.6MG/50MG TAB, See Instructions, 6 refills RA SENNA 8.6 MG TABLET, See Instructions, 11 refills Vitamin D3 2000 intl units oral tablet, 50 mcg= 1 tabs, Oral, Daily, 11 refills Allergies morphine (unknown) Social History Alcohol Never Employment/School Unemployed, Highest education level: High school. Home/Environment Lives with Roomates, independant living. Alcohol abuse in household: No. Substance abuse in household: No. Smoker in household: No. Injuries/Abuse/Neglect in household: No. Financial concerns: No. Sexual Sexually active: No. History of sexual abuse: No. No Substance Abuse Denies All Tobacco Never (less than 100 in lifetime) Use:. Family History Family history is unknown Immunizations Vaccine Date Status influenza virus vaccine, inactivated 03/19/2021 Given influenza virus vaccine, inactivated 03/02/2017 Given Lab Results Test Name Test Result Date/Time Urine Color Urine Dipstick Isabella 02/10/2023 10:28 EDT Urine Appearance Urine Dipstick Clear 02/10/2023 10:28 EDT Specific [place] Urine Dipstick 1.020 02/10/2023 10:28 EDT pH Urine Dipstick 5 02/10/2023 10:28 EDT Protein Urine Dipstick Trace 02/10/2023 10:28 EDT Glucose Urine Dipstick Negative 02/10/2023 10:28 EDT Bilirubin Urine Dipstick Negative 02/10/2023 10:28 EDT Urobilinogen Urine Dipstick 0.2 mg/dl 02/10/2023 10:28 EDT Leukocytes Urine Dipstick Trace 02/10/2023 10:28 EDT Nitrite Urine Dipstick Negative 02/10/2023 10:28 EDT Ketones Urine Dipstick 3+ (>80mg/dL) 02/10/2023 10:28 EDT Blood Urine Dipstick Negative 02/10/2023 10:28 EDT Electronically signed by _ Rashi Gruber MD 02/10/23 10:40 EDT Normal [facility] FOOT LEFT 3 VWSon 02-03-2021 FOOT LEFT 3 [facility] Department of Radiology [address] [place] [id number] == Patient Name: ORALIA WHITFIELD : 1980 Sex: F Age: Race: White Pt. Location: Patient Status: O Ordered Date: 02/03/2021 11:20:00 AM Completed Date: 02/03/2021 11:32 AM Requesting Provider: LA MCKINNON Attending Provider: LA MCKINNON Report Copy To: Signs & Symptoms: S92.345A Nondisp fx of fourth metatarsal bone, left foot, init I10 History: Comments: Evaluate Exam: FOOT LEFT 3 [facility] == FOOT LEFT 3 S 02/03/2021 11:32 AM SIGNS AND SYMPTOMS: S92.345A Nondisp fx of fourth metatarsal bone, left foot, init I10 TECHNOLOGIST COMMENTS: Follow up left foot injury November 2020 QUESTION FOR THE RADIOLOGIST: Evaluate PROTOCOL: AP,Lateral and Oblique views were obtained. COMPARISON: January 06, 2021 FINDINGS: Fractures of the necks of the third, fourth and fifth left metatarsal necks show increasing maturation callus compared to the prior study. Alignment. No additional abnormality is appreciated. IMPRESSION: Healing fractures of left third fourth and fifth metatarsal necks. Electronically signed: Devon Allan. Transcribed by: [email or web address], User Resident: Electronically Signed by: DEVON ALLAN @ 02/03/2021 12:49 PM Normal [facility] Comment on above: Order Comment: Evalu ate FOOT LEFT 3 [facility] 01-06-2021 FOOT LEFT 3 [facility] Department of Radiology [address] [place] [phone] == Patient Name: ORALIA WHITFIELD : 1980 Sex: F Age: Race: White Pt. Location: 84 Patient Status: O Ordered Date: 01/06/2021 9:45:00 AM Completed Date: 01/06/2021 09:49 AM Requesting Provider: LA MCKINNON Attending Provider: LA MCKINNON Report Copy To: Signs & Symptoms: S92.345A Nondisp fx of fourth metatarsal bone, left foot, init I10 History: Comments: evalaute Exam: FOOT LEFT 3 [facility] == FOOT LEFT 3 S 01/06/2021 9:49 AM CLINICAL INDICATIONS: S92.345A Nondisp fx of fourth metatarsal bone, left foot, init I10 TECHNOLOGIST COMMENTS: ortho follow up, left foot injury PROTOCOL: AP,Lateral and Oblique views were obtained. COMPARISON: 12/16/2020 FINDINGS: Redemonstration of nondisplaced fracture of the fourth metatarsal head with interval bony callus formation bridging, in stable alignment. Also redemonstration of linear sclerosis at the third and fifth metatarsal neck which may relate to nondisplaced fractures as well, similar to prior imaging. No acute abnormality of the partially visualized tibia and fibula. Plantar calcaneal spurring. IMPRESSION: * Osseous alignment healing third through fifth metatarsal neck fractures. Approved by:Aamir Wilson01/06/2021 11:20 AM. I, Lenny Law,have reviewed the image(s) and agree with the findings in this report. Electronically signed: Lenny Law. Transcribed by: [email or web address], User Resident: AAMIR LENTZ Electronically Signed by: LENNY LAW @ 01/06/2021 12:04 PM I personally read this/these film(s) with this resident Normal [facility] Comment on above: Order Comment: nacho wu FOOT LEFT 3 VWSon 12-16-2020 FOOT LEFT 3 VWS [facility] Department of Radiology [address] [place] [phone] == Patient Name: ORALIA WHITFIELD : 1980 Sex: F Age: Race: White Pt. Location: Patient Status: D Ordered Date: 12/16/2020 2:05:00 PM Completed Date: 12/16/2020 02:12 PM Requesting Provider: LA MCKINNON Attending Provider: ERROL SELBY Report Copy To: Signs & Symptoms: S92.345A Nondisp fx of fourth metatarsal bone, left foot, init I10 History: Comments: Evaluate Exam: FOOT LEFT 3 VWS == FOOT LEFT 3 S HISTORY: Foot injury, fracture. COMPARISON: None. IMPRESSION: 1. Nondisplaced fracture with subtle healing changes of the fourth metatarsal neck. 2. Additional subtle cortical irregularity along the fifth metatarsal neck is subtle transverse lucency with subtle sclerosis of the third metatarsal neck may reflect additional nondisplaced fractures. Electronically signed: Lenny Law. Transcribed by: [email or web address], User Resident: Electronically Signed by: LENNY LAW @ 12/17/2020 10:25 AM Normal [facility] Comment on above: Order Comment: Evalu ate Urine Cultureon 12-02-2020 Bacteria identified Cx Nom (U) Final report Critically abnormal . [facility] Comment on above: Order Comment: Reaso n for Exam Urge incontinence of urine Performed By: #### U RINE CULTURE #### [facility] , Ur Cult Antimic Suceptibility Normal . [facility] Comment on above: Order Comment: Reaso n for Exam Urge incontinence of urine Result Comment: S = Susceptible; I = Intermediate; R = Resistant P = Positive; N = Negative MICS are expressed in micrograms per mL Antibiotic RSLT#1 RSLT#2 RSLT#3 RSLT#4 Amoxicillin/Clavulanic Acid S Ampicillin S Cefepime S Ceftriaxone S Cefuroxime S Ciprofloxacin S Ertapenem S Gentamicin S Imipenem S Levofloxacin S Meropenem S Nitrofurantoin S Piperacillin/Tazobactam S Tetracycline S Tobramycin S Trimethoprim/Sulfa S Performed at: [facility] [id number] Personal Computer Specialist: Kodak Tracy PhD, Phone: [phone] PERFORMED BY: [place] [id number] PATHOLOGIST SNOWMOBILE MECHANIC ROSA ISELA GORE M.D. Performed By: #### U RINE CULTURE #### [facility] , Urine Culture, Res 1 Escherichia coli Critically abnormal . [facility] Comment on above: Order Comment: Reaso n for Exam Urge incontinence of urine Result Comment: Grea ter than 100,000 colony forming units per mL Cefazolin <=4 ug/mL Cefazolin with an LYNNE <=16 predicts susceptibility to the oral agents cefaclor, cefdinir, cefpodoxime, cefprozil, cefuroxime, cephalexin, and loracarbef when used for therapy of uncomplicated urinary tract infections due to E. coli, Klebsiella pneumoniae, and Proteus mirabilis. Performed By: #### U RINE CULTURE #### [facility] , XR foot LT min 3V*on 021 XR foot LT min 3V* [facility] [place] [address] [place] [address] XRay Report Signed Patient: Oralia Whitfield MR#: [id number] : 1980 Acct:[id number] Age/Sex: 40 / F ADM Date: 12/02/20 Loc: XDUCLY Room: Type: [facility] Attending Dr: Lucero DEGROOT Ordering Provider: LUCERO ROMERO Date of Service: 12/02/20 XR/XR foot LT min 3V*: Injury of left foot, initial encounter Copies to: LUCERO ROMERO 3 viewsLEFT foot plain film COMPARISON:None HISTORY:LEFT foot pain and swelling for one day Potential fractures involving the necks of the 4th metatarsals noted. No dislocation. Dorsal soft tissue swelling. XR/XR foot LT min 3V* IMPRESSION:Potential nondisplaced fractures of the neck of the 3rd and 4th metatarsals. Impression dictated by: Modesto Jones M.D.12/02/2020 5:14 PM Dictation Location: [place] [address] Transcribed By: [facility] 12/02/201713 Dictated By: Modesto Jones DO 12/02/20 170 Signed By: 12/02/20 171 [facility] Urine Cultureon 09-05-2020 Bacteria identified Cx Nom (U) Reason for Exam Dysuria Urine Reason for Exam: Dysuria : Urine ORGANISM: Escherichia coli (O:ESCCOL) [place] Count >100,000 Aerobic LYNNE Charge (NUC86) - SUSCEPTIBILITY ORGANISM: O:ESCCOL ANTIBIOTIC INTERPRETATION LYNNE Amikacin S <16 Ampicillin S <8 Ampicillin/Sulbactam S <8/4 Aztreonam S <4 Cefazolin S <2 Cefepime S <2 Ceftazidime S <1 Ceftazidime/Avibactam S <8 Ceftriaxone S <1 Ciprofloxacin S <1 Ertapenem S <0.5 Gentamicin S <4 Levofloxacin S <2 Meropenem S <1 Nitrofurantoin S <32 Piperacillin/Tazobactam S <16 Tetracycline S <4 Tigecycline S <2 Tobramycin S <4 Trimethoprim/Sulfamethox azole S <2/38 S = SUSCEPTIBLE I = INTERMEDIATE R = RESISTANT BLANK = DATA NOT AVAILABLE, OR DRUG NOT ADVISABLE OR TESTED R* = RESISTANCE DUE TO EXTENDED SPECTRUM BETA-LACTAMASES ESBL = EXTENDED SPECTRUM BETA-LACTAMASE TFG = THYMIDINE-DEPENDENT STRAIN MIS = BETA-LACTAMASE POSITIVE IB = INDUCIBLE BETA-LACTAMASE. APPEARS IN PLACE OF 'S' WITH SPECIES KNOWN TO POSSESS INDUCIBLE BETA-LACTAMASES. POTENTIALLY THEY MAY BECOME RESISTANT TO ALL B-LACTAM DRUGS. PERFORMED BY: [place] [address] PATHOLOGIST SNOWMOBILE MECHANIC ROSA ISELA GORE M.D. [facility] Comment on above: Performed By: #### C UU #### [address] XR WRIST RIGHT MINIMUM 3 VIE WSon 10-09-2017 XR WRIST RIGHT MINIMUM 3 VIEWS CLINICAL: Status post fall. Fracture risk. Status post attempted reduction.COMPARISON: Earlier radiographs TECHNIQUE: 3 views of the right wrist FINDINGS: There is attempted reduction with persistent mal- alignment of the fracture site..IMPRESSION:Persist ent displacement of the fracturesWorkstation ID:[id number] fell. Post reduction. Patient has autism and is MRDD. Tech held for films best images possible. [facility] XR WRIST RIGHT MINIMUM 3 VIEWS CLINICAL: Right wrist fracture, post reduction.COMPARISON: Earlier radiographs TECHNIQUE: 3 views of the right wrist FINDINGS: There is interval reduction of the distal radius fracture. There is improved alignment..IMPRESSION:Po st reductionWorkstation ID:[id number] attempt post reduction of right wrist fx. Held for images by tech. [facility] CT HEAD WITHOUT CONTRASTon 0 10-08-2017 CT HEAD WITHOUT CONTRAST CLINICAL: Head trauma, pain, patient with MRDD and autistic fell out of the back of a pickup truck breaking at wrist. Facial trauma and head trauma. COMPARISON: NoneTECHNIQUE: CT brain without contrast. Dose reduction: MA and KV are adjusted by automated exposure control software patient on patient sizeFINDINGS: No extraaxial fluid collections. The sulci, ventricles, and basal cisterns are unremarkable for the patient's age. The brain parenchyma is intact without acute hemorrhage, contusion or mass lesions. IMPRESSION: No acute intracranial injury detected.Workstation ID:[id number] ambulated to triage desk with mom. Mom stated pt fell out of a brain picker truck while holding her lunch. Has head & R wrist inj. Mom denies LOC. Pt has abrasions above R eyebrow, & under R eye, is bleeding from her nose, & has a deformity to her R wrist. Mom said pt is autistic, and MRDD. Mx: noneSx: noneNoncontrastabg-c Normal [facility] CT MAXILLOFACIAL / SINUS WIT HOUT CONTRASTon 10-08-2017 CT MAXILLOFACIAL / SINUS WITHOUT CONTRAST CLINICAL: Trauma, patient fell out of a pickup truck. Abrasions above right eyebrow. MRDD and autismCOMPARISON: NoneTECHNIQUE: CT FACIAL BONES; axial images were obtained through the facial bones and coronal and sagittal reformats were created. Dose reduction: MA and KV are adjusted by automated exposure control software patient on patient sizeFINDINGS: The nasal septum was midline. There was no nasal bone fractures seen. The méndez of the sinuses were intact. The floor of the orbits were also intact. No facial fracture seen IMPRESSION:Negative for facial fracture. Workstation ID:[id number] ambulated to triage desk with mom. Mom stated pt fell out of a brain picker truck while holding her lunch. Has head & R wrist inj. Mom denies LOC. Pt has abrasions above R eyebrow, & under R eye, is bleeding from her nose, & has a deformity to her R wrist. Mom said pt is autistic, and MRDD. Mx: noneSx: noneNoncontrastabg-c [facility] CT SPINE CERVICAL WITHOUT CO NTRASTon 10-08-2017 CT SPINE CERVICAL WITHOUT CONTRAST CLINICAL: Trauma, patient fell from a pickup truck. MRDD and autismCOMPARISON: NoneTECHNIQUE: CT SCAN CERVICAL SPINE WITHOUT CONTRAST: Helical images were obtained through the cervical spine. Coronal and sagittal reformations were obtained . Dose reduction: MA and KV are adjusted by automated exposure control software patient on patient sizeFINDINGS: Normal alignment without subluxation. No evidence of fracture. There is preservation of cervical lordosis.IMPRESSION:No acute osseous injury seen.Workstation ID:[id number] ambulated to triage desk with mom. Mom stated pt fell out of a brain picker truck while holding her lunch. Has head & R wrist inj. Mom denies LOC. Pt has abrasions above R eyebrow, & under R eye, is bleeding from her nose, & has a deformity to her R wrist. Mom said pt is autistic, and MRDD. Mx: noneSx: noneNoncontrastabg-c Normal [facility] XR CHEST PA OR AP 1 VIEW (PO RTABLE)on 10-08-2017 XR CHEST PA OR AP 1 VIEW (PORTABLE) CLINICAL: Fell out of a truck.COMPARISON: noneTECHNIQUE: AP portable chestFINDINGS:The lungs are clear. Pulmonary vascularity is normal.IMPRESSION: No acute lung lesion seen.Workstation ID:[id number] stated patient fell out of a brain picker truck while holding her lunch. Right wrist injury, obvious deformity. Mom denies LOC. Mom said pt is autistic, and MRDD. Poor historian. Normal [facility] XR PELVIS 1 OR 2 VIEWSon XR PELVIS 1 OR 2 VIEWS CLINICAL: Patient fell out of a truck.COMPARISON: NoneTECHNIQUE: AP pelvisFINDINGS:The osseous pelvis is intact. Hip alignment is anatomic, and the sacroiliac joints are unremarkable. IMPRESSION: Unremarkable AP pelvis x-rays.Workstation ID:[id number] stated patient fell out of a brain picker truck while holding her lunch. Right wrist injury, obvious deformity. Mom denies LOC. Mom said pt is autistic, and MRDD. Poor historian. Normal [facility] XR WRIST RIGHT MINIMUM 3 VIE WSon 10-08-2017 XR WRIST RIGHT MINIMUM 3 VIEWS CLINICAL: Fell out of a truck. Right wrist pain and injuryCOMPARISON: None TECHNIQUE: 3 views of the right wrist FINDINGS: There is comminuted displaced fracture of the distal radius and an avulsion fracture of the ulnar styloid..IMPRESSION:Frac ture distal radius and ulna styloid processWorkstation ID:[id number] stated patient fell out of a brain picker truck while holding her lunch. Right wrist injury, obvious deformity. Mom denies LOC. Mom said pt is autistic, and MRDD. Poor historian. [facility] Encounters Encounter Date Encounter Type Care Provider Facility Start: 12-26-2023 End: 12-26-2023 ambulatory Rashi Gruber MD Facility:[facility] Start: 11-14-2023 End: 11-14-2023 ambulatory Rashi Gruber MD Facility:[facility] Start: 11-11-2023 End: 11-11-2023 ambulatory Roxana Blanco KNIFE EDGER-HUB BANDER Facility:[facility] Start: 10-27-2023 End: 10-27-2023 ambulatory Rashi Gruber MD Facility:[facility] Start: 10-05-2023 End: 10-05-2023 ambulatory Rashi Gruber MD Facility:[facility] Start: 09-01-2023 End: 09-01-2023 ambulatory Rashi Gruber MD Facility:[facility] Start: 08-31-2023 End: 08-31-2023 ambulatory Rashi Gruber MD Facility:[facility] Start: 08-02-2023 End: 08-02-2023 ambulatory Rashi Gruber MD Facility:[facility] Start: 05-04-2023 End: 05-04-2023 ambulatory Rashi Gruber MD Facility:[facility] Start: 04-11-2023 End: 04-11-2023 ambulatory Roxana Blanco KNIFE EDGER-HUB BANDER Facility:[facility] Start: 04-01-2023 End: 04-01-2023 ambulatory Rashi Gruber MD Facility:[facility] Start: 02-10-2023 End: 02-10-2023 ambulatory Rashi Gruber MD Facility:[facility] Start: 08-23-2022 End: 08-23-2022 ambulatory NICKIE DESHPANDE Facility: Start: 10-08-2017 End: 10-08-2017 Emergency department patient visit KIERAN Mcdonough [facility] Payers Date Payer Category Payer Medicaid 2021 Medicare 1980 Unknown [id number] 2.16.84 [id number] 1980 Unknown [id number] 2.16. 840.1.770222.3.579.2. 1980 Unknown [id number] 2.16. 840.1.226960.3.579.2. 1980 Unknown [id number] 2.16. 840.1.524649.3.579.2. 1980 Unknown [id number] 2.16. 840.1.672790.3.579.2. 1980 Unknown [id number] 2.16 840.1.431014.3.579.2. 1980 Unknown [id number] 2.16 840.1.916378.3.579.2. 1980 Unknown [id number] 2. 840.1.001407.3.579.2. 1980 Unknown [id number] 2.16 840.1.389116.3.579.2. 1980 Unknown [id number] 2.16 840.1.371983.3.579.2. 1980 Unknown [id number] 2.16 840.1.816090.3.579.2. 1980 Unknown [id number] 2. 840.1.977772.3.579.2. 1980 Unknown [id number] 2.16 840.1.326674.3.579.2. 1980 Unknown [id number] 2.16. 840.1.571467.3.579.2. 1980 Unknown [id number] 2.16. 840.1.099680.3.579.2. 1980 Unknown [id number] 2.16 840.1.100468.3.579.2. 1980 Unknown [id number] 2.16 840.1.284781.3.579.2.196 1980 Unknown [id number] 2.16. 840.1.346918.3.579.2. 1980 Unknown [id number] 2.16. 840.1.683070.3.579.2.196 1957 Medicaid [id number] 1957 Medicare [id number] Medicare [id number] Clinical Note 08-23-2022 Note Date & Type Note Facility 08-23-2022 Note PROCEDURE: XR ANKLE LT MIN 3 V, XR FOOT LT MIN 3 VIEWS HISTORY: Pain in lower limb ; redness and swelling and to dorsum of foot COMPARISON: None. FINDINGS: BONES:No fracture, acute abnormality, or significant arthropathy. SOFT TISSUES:Soft tissue swelling surrounding the ankle and over dorsum of the foot. EFFUSION:None visible. OTHER: Negative. IMPRESSION: 1. Soft tissue swelling of uncertain etiology. 2. No acute or suspicious bone abnormality. Electronically authenticated by: DELMY CHÁVEZ Date: 2022-08-23 12:45 [facility] Clinical Note 08-23-2022 Note Date & Type Note Facility 08-23-2022 Note PROCEDURE: XR ANKLE LT MIN 3 V, XR FOOT LT MIN 3 VIEWS HISTORY: Pain in lower limb ; redness and swelling and to dorsum of foot COMPARISON: None. FINDINGS: BONES:No fracture, acute abnormality, or significant arthropathy. SOFT TISSUES:Soft tissue swelling surrounding the ankle and over dorsum of the foot. EFFUSION:None visible. OTHER: Negative. IMPRESSION: 1. Soft tissue swelling of uncertain etiology. 2. No acute or suspicious bone abnormality. Electronically authenticated by: DELMY CHÁVEZ Date: 2022-08-23 12:45 [facility] Summary Purpose Family History No Family History Records FoundNo Family History Records FoundNo Family History Records FoundNo Family History Records FoundNo Family History Records Found Advance Directives No Advanced Directives Records FoundNo Advanced Directives Records FoundNo Advanced Directives Records FoundNo Advanced Directives Records FoundNo Advanced Directives Records Found Additional Source Comments INFORMATION SOURCE (unrecogn ized section and content) DATE CREATED AUTHOR 11/15/2017 [facility] DATE CREATED AUTHOR AUTHOR'S ORGANIZ ATION 02/04/2021 [facility] DATE CREATED AUTHOR AUTHOR'S ORGANIZ ATION 07/15/2021 [facility] DATE CREATED AUTHOR AUTHOR'S ORGANIZ ATION 08/24/2022 [facility] DATE CREATED AUTHOR AUTHOR'S ORGANIZ ATION 12/27/2023 [facility] FOR RECORDS PERTAINING TO PATIENTS WHO ARE OR HAVE BEEN ENROLLED IN A CHEMICAL DEPENDENCY/SUBSTANCEABUSE PROGRAM, SOME INFORMATION MAY BE OMITTED. This clinical summary was aggregated from multiple sources. Caution should be exercised in using it in the provision of clinical care. This summary normalizes information from multiple sources, and as a consequence, information in this document may materially change the coding, format and clinical context of patient data. In addition, data may be omitted in some cases. CLINICAL DECISIONS SHOULD BE BASED ON THE PRIMARY CLINICAL RECORDS. [employer] provides no warranty or guarantee of the accuracy or completeness of information in this document.
[2023-12-31 18:06] VITALS: PULSE 107; TEMP 36.5; O2SAT 97; BMI 30.8
--- NOTE | 2023-12-31 18:09 | XR_ITS ---
[facility] [place] [id number] Patient Name: ORALIA WHITFIELD MRN: [id number] date: 1980 Sex: F Assigned Patient Location: ER Current Patient Location: Accession/Order Number: [id number] Exam Date: 12/31/2023 18:30 Report Date: 12/31/2023 21:15 At the request of: JOHN LONG Procedure: XR ribs RT min 3V w CXR1V EXAM: XR ribs RT min 3V w CXR1V HISTORY: The patient is a 43-year-old female, fall COMPARISON: None. FINDINGS: The lungs are underinflated but clear on pneumothoraces. The heart and mediastinum are within normal limits. The trachea is midline. No fractures or other osseous abnormalities are seen of the right ribs. XR/XR ribs RT min 3V w CXR1V IMPRESSION: Negative. Electronically authenticated by: SANFORD COLE Date: 12/31/2023 21:15
--- NOTE | 2023-12-31 18:10 | ED.FALL1 ---
HPI HPI - Fall General Chief Complaint: Fall Stated Complaint: Side Pain from falling in shower Time Seen by Provider: 12/31/23 17:36 History of Present Illness HPI Narrative: 43-year-old male presents to the emergency department for a chief complaint of right rib pain. Just before coming into the emergency department she apparently fell in the shower and she has a margaret from it just under her right breast. The patient is accompanied by a caregiver who gives all of the history. The pain cannot be described or quantified. Related Data Home Medications ?Medication ?Instructions ?Recorded ?Confirmed benztropine 2 mg tablet 2 mg PO DAILY 01/13/23 01/13/23 cholecalciferol (vitamin D3) 50 50 mcg PO DAILY 01/13/23 01/13/23 mcg (2,000 unit) tablet divalproex 500 mg tablet,extended 1,000 mg PO BEDTIME 01/13/23 01/13/23 release 24 hr estradiol 1 mg tablet 1 mg PO DAILY 01/13/23 01/13/23 fluphenazine HCl 5 mg tablet 5 mg PO TID 01/13/23 01/13/23 fluvoxamine 100 mg tablet 100 mg PO DAILY 01/13/23 01/13/23 loratadine 10 mg tablet 10 mg PO Q24H 01/13/23 01/13/23 melatonin 5 mg tablet 5 mg PO BEDTIME 01/13/23 01/13/23 nitrofurantoin macrocrystal 100 mg 100 mg PO Q24H 01/13/23 01/13/23 capsule omeprazole 40 mg capsule,delayed 40 mg PO DAILY 01/13/23 01/13/23 release paliperidone 6 mg tablet,extended 12 mg PO Q24H 01/13/23 01/13/23 release 24 hr Allergies Allergy/AdvReac Type Severity Reaction Status Date / Time morphine Allergy Unknown Abdominal Verified 12/31/23 18:06 Pain Milk Containing Products AdvReac Unknown Abdominal Verified 12/31/23 18:06 (Dairy) Pain Opioid HPI Opioid Management Most Recent Pain and Opioid Data: No Data to Display Review of Systems ROS Narrative Not obtainable, psychiatric disorder Exam Narrative Exam Narrative: Nurses note and vital signs reviewed and patient is not hypoxic. General: The patient in no apparent distress. Skin: Warm, dry, no pallor noted. There is no rash noted. Head: Normocephalic, atraumatic Eye: Normal conjunctiva, no drainage Ears, Nose, Mouth, and Throat: oral mucosa is moist. Nares patent. Cardiovascular: Regular Rate and Rhythm Respiratory: Patient is in no distress, no accessory muscle use, lungs are clear to auscultation, no wheezing, rales or rhonchi. There is a small area of erythema just under her right breast consistent with an abrasion. There is no crepitus. Breath sounds are equal. Back: non-tender GI: No tenderness on the abdomen including the right upper quadrant Musculoskeletal: No tenderness to 4 extremities Neurological: Awake and alert Psychiatric: Cooperative Constitutional Vital Signs, click to edit/add: Last Vital Signs Temp 97.7 F 12/31/23 18:06 Pulse 107 H 12/31/23 18:06 Resp 18 12/31/23 18:06 Pulse Ox 97 12/31/23 18:06 O2 Del Method Room Air 12/31/23 18:06 Course Vital Signs Vital signs: Vital Signs Temperature 97.7 F 12/31/23 18:06 Pulse Rate 107 H 12/31/23 18:06 Respiratory Rate 18 12/31/23 18:06 Pulse Oximetry 97 12/31/23 18:06 Oxygen Delivery Method Room Air 12/31/23 18:06 Temperature 97.7 F 12/31/23 18:06 Pulse Rate 107 H 12/31/23 18:06 Respiratory Rate 18 12/31/23 18:06 Pulse Oximetry 97 12/31/23 18:06 Oxygen Delivery Method Room Air 12/31/23 18:06 MDM - Fall MDM Narrative Medical decision making narrative: Rib x-rays are ordered and the patient is signed out to Dr. Bennett at change of shift. Differential Diagnosis Differential diagnosis: Likely other (Rib contusion, rib fracture, pneumothorax) Discharge Plan Discharge Patient Disposition: Still a Patient
[2023-12-31 20:35] VITALS: BP 121/72; PULSE 78; O2SAT 100
== END 2023-12-31 20:36 | disposition home or self-care (01) ==
PROVIDERS: Emergency Provider Internal Medicine
DX: S20.211A Contusion of right front wall of thorax, initial encounter (principal); W18.2XXA Fall in (into) shower or empty bathtub, initial encounter
CPT/HCPCS: 71101; 99283

== ENCOUNTER 2024-07-02 18:41 | Emergency (ER) | payer MEDICARE, MEDICAID, SELFPAY ==
--- OUTSIDE RECORDS SUMMARY | 2024-07-02 19:06 | XMS_ITS | CCD ---
Author Organization [facility] Care Team Providers Care Grain Unloader Machine Name Role Phone DIAZKIERAN MC Unavailable Unavailable NICKIE DESHPANDE Admitting Unavailable NICKIE DESHPANDE Attending Unavailable INDY GRUBER Primary Care Unavailable NICKIE DESHPANDE Consulting Unavailable DR DELMY CHÁVEZ Consulting Unavailable Yasmani ANDRES, Rashi Nugent Primary Care Unavailable Rashi Gruber MD Attending Unavailable Dany ENRIQUEZ, Rosa James Attending Unavailable Rashi Gruber MD Primary Care Unavailable Dany ENRIQUEZ, Rosa James Attending Unavailable Rashi Gruber MD Primary Care Unavailable Francis ENRIQUEZ, Roxana Buchanan Referring Unavailable Francis ENRIQUEZ, Roxana Buchanan Attending Unavailable Rashi Gruber MD Primary Care Unavailable Francis ENRIQUEZ, Roxana Buchanan Attending Unavailable Rashi Gruber MD Primary Care Unavailable Francis ENRIQUEZ, Roxana Buchanan Attending Unavailable Rashi Gruber MD Primary Care Unavailable Rashi Gruber MD Attending Unavailable Rashi Gruber MD Primary Care Unavailable Wayne Coronel MD Attending Unavailable Rashi Gruber MD Primary Care Unavailable Rosa Call Attending Unavailable Rashi Gruber MD Primary Care Unavailable Wayne Coronel MD Attending Unavailable Rashi Gruber MD Primary Care Unavailable Berna ANDRES, Wayne Galvan Attending Unavailable Rashi Gruber MD Primary Care Unavailable Wayne Coronel MD Attending Unavailable Rashi Gruber MD Primary Care Unavailable Rashi Gruber MD Primary Care Unavailable Berna ANDRES, Wayne Galvan Attending Unavailable Berna ANDRES, Wayne Galvan Attending Unavailable Rashi Gruber MD Primary Care [...] Yasmani ANDRES, Rashi Nugent Primary Care Unavailable Allergies Allergy Classification Reported Allergen(s) Allergy Type Date of Onset Reaction(s) Facility (2 sources) Morphine; Translations: [morphine] Drug Allergy [facility] Repository Problems Active Problems Problem Classification Problem Date Documented Da te Episodic/Chronic Developmental disorders (1 source) Unspecified intellectual disabilities; Translations: [UNSPEC INTELLECTUAL DISABILITIES] Onset: 08-24-2022 Chronic E Codes: Fall (1 source) Unspecified fall, initial encounter; Translations: [UNSPECIFIED FALL INITIAL ENCOUNTER] Onset: 08-24-2022 Episodic Other aftercare (1 source) Other long term care phlebotomist (current) drug therapy; Translations: [OTH MARKETING INSTRUCTOR CURRENT DRUG THERAPY] Onset: 08-24-2022 Episodic Other [...] 10-08-2017 Unclassified (1 source) Head Injury / [id number]() Onset: 10-08-2017 Unclassified (1 source) Wrist Injury / [id number]() Onset: 10-08-2017 Unclassified (1 source) Unspecified fracture [...] Name Value Interpretation Reference Range Facility .eGFRon 06-26-2024 GFR/1.73 sq M.predicted MDRD (S/P/Bld) [Vol rate/Area] mL/min/{1.73_m2} Normal >=60 [facility] Comment on above: Order Comment: Order added by Discern rule Result Comment: [facility] have implemented the eGFR calculation approach [...] years Performed By: #### E GFR #### [address] [address] CBC w/ Diffon 06-26-2024 Erythrocyte distribution width (RBC) [Ratio] 15.0 % High 11.6-14.8 [facility] Comment on above: Performed By: #### C BC #### [address] [address] Hematocrit (Bld) [Volume fraction] 38.5 % Normal 36.0-46.0 [facility] Comment on above: Performed By: #### C BC #### [address] [address] Hemoglobin (Bld) [Mass/Vol] 12.9 g/dL Normal 12.0-16.0 [facility] Comment on above: Performed By: #### C BC #### [address] [address] MCH (RBC) [Entitic mass] 29.7 pg Normal 27.0-35.0 [facility] Comment on above: Performed By: #### C BC #### [address] [address] MCHC 33.5 % Normal 31.0-37.0 [facility] Comment on above: Performed By: #### C BC #### [address] [address] MCV (RBC) [Entitic vol] 88.5 fL Normal 80.0-100.0 [facility] Comment on above: Performed By: #### C BC #### [address] [address] Platelet 180 x10*3/mcL Normal 150-450 [facility] Comment on above: Performed By: #### C BC #### [address] [address] Platelet mean volume (Bld) [Entitic vol] 8.4 fL Normal 6.7-10.6 [facility] Comment on above: Performed By: #### C BC #### [address] [address] RBC 4.35 x10*6/mcL Normal 3.80-5.20 [facility] Comment on above: Performed By: #### C BC #### [address] [address] WBC 6.8 x10*3/mcL Normal 4.5-11.0 [facility] Comment on above: Performed By: #### C BC #### [address] [address] CMPon 06-26-2024 Albumin [Mass/Vol] 4.2 g/dL Normal 3.2-4.9 [facility] Comment on above: Performed By: #### . Automated Diff #### [address] [address] Albumin/Globulin [Mass ratio] 1.4 {ratio} Normal 1.1-2.2 [facility] Comment on above: Performed By: #### . Automated Diff #### [address] [address] Alk Phos 63 IU/L Normal 32-91 [facility] Comment on above: Performed By: #### . Automated Diff #### [address] [address] ALT [Catalytic activity/Vol] 23 U/L Normal 14-54 [facility] Comment on above: Performed By: #### . Automated Diff #### [address] [address] AST [Catalytic activity/Vol] 22 U/L Normal 15-41 [facility] Comment on above: Performed By: #### . Automated Diff #### [address] [address] Bili Total 0.3 mg/dL Normal 0.3-1.2 [facility] Comment on above: Performed By: #### . Automated Diff #### [address] [address] Protein [Mass/Vol] 7.2 g/dL Normal 6.5-8.1 [facility] Comment on above: Performed By: #### . Automated Diff #### [address] [address] Anion gap [Moles/Vol] 11 mmol/L Normal 4-12 [facility] Comment on above: Performed By: #### . Automated Diff #### [address] [address] Calcium [Mass/Vol] 10.2 mg/dL Normal 8.5-10.3 [facility] Comment on above: Performed By: #### . Automated Diff #### [address] [address] Chloride [Moles/Vol] 102 mmol/L Normal 98-110 [facility] Comment on above: Performed By: #### . Automated Diff #### [address] [address] CO2 [Moles/Vol] 23 mmol/L Normal 22-32 [facility] Comment on above: Performed By: #### . Automated Diff #### [address] [address] Creatinine [Mass/Vol] 0.85 mg/dL Normal 0.44-1.03 [facility] Comment on above: Performed By: #### . Automated Diff #### [address] [address] Glucose [Mass/Vol] 80 mg/dL Normal 70-99 [facility] Comment on above: Performed By: #### . Automated Diff #### [address] [place] [address] Potassium [Moles/Vol] 4.8 mmol/L Normal 3.4-4.8 [facility] Comment on above: Performed By: #### . Automated Diff #### [place] [id number] Sodium [Moles/Vol] 136 mmol/L Normal 133-142 [facility] Comment on above: Performed By: #### . Automated Diff #### [place] [id number] Urea nitrogen [Mass/Vol] 22 mg/dL Normal 8-26 [facility] Comment on above: Performed By: #### . Automated Diff #### [place] [id number] Urea nitrogen/Creatini ne [Mass ratio] 25.9 mg/mg High 10.0-20.0 [facility] Comment on above: Performed By: #### . Automated Diff #### [place] [id number] Diff Autoon 06-26-2024 Baso Absolute 0.0 x10*3/mcL Normal 0.0-0.2 [facility] Comment on above: Performed By: #### . Automated Diff #### [address] [address] Basophils/100 WBC (Bld) 0.3 % Normal 0.0-1.5 [facility] Comment on above: Performed By: #### . Automated Diff #### [address] [address] Eos Absolute 0.0 x10*3/mcL Normal 0.0-0.4 [facility] Comment on above: Performed By: #### . Automated Diff #### [address] [address] Eosinophils/100 WBC (Bld) 0.6 % Normal 0.0-5.4 [facility] Comment on above: Performed By: #### . Automated Diff #### [address] [address] Lymph Absolute 2.1 x10*3/mcL Normal 1.0-4.8 [facility] Comment on above: Performed By: #### . Automated Diff #### [address] [address] Lymphocytes/100 WBC (Bld) 31.7 % Normal 27.2-40.8 [facility] Comment on above: Performed By: #### . Automated Diff #### [address] [address] [place] Absolute 0.5 x10*3/mcL Normal 0.1-1.1 [facility] Comment on above: Performed By: #### . Automated Diff #### [address] [address] Monocytes/100 WBC (Bld) 7.1 % Normal 3.7-11.9 [facility] Comment on above: Performed By: #### . Automated Diff #### [address] [address] Neutro Absolute 4.1 x10*3/mcL Normal 1.8-7.7 [facility] Comment on above: Performed By: #### . Automated Diff #### [place] [id number] Neutro Auto 60.3 % Normal 47.2-70.8 [facility] Comment on above: Performed By: #### . Automated Diff #### [place] [id number] Family Medicine Office/Clini c Noteon 06-26-2024 Family Medicine Office/Clinic Note Chief Complaint Med check History of Present Illness here with caseworkers and caregivers: follow up chronic conditions- last here one year ago- follows routinely with psychiatry and recent regimen and notes reviewed- she is stable at present- discussed nutrition which is good and sleep which is variable- no recent acute illness- remains on PPI; labs done November- has not had recent lipids nor A1c- in past had been watching for IFG- reviewed agency notes- Review of Systems Constitutional: [No fevers, chills, sweats] ENMT: [No ear pain, nasal congestion, sore throat] Respiratory: [No shortness of breath, cough] Cardiovascular: [No Chest pain, palpitations, syncope] Gastrointestinal: [No nausea, vomiting, diarrhea] Psychiatric: see HPI Physical Exam Vitals & Measurements HR: 126 (Peripheral) BP: 126/82 SpO2: 98% HT: 160 cm WT: 73.9 kg (Dosing) WT: 73.9 kg BMI: 28.87 General: [Alert and oriented, well nourished, no acute distress]. HENT: [Normocephalic, clear tympanic membranes, normal hearing, moist oral mucosa Lungs: [Clear to auscultation;, non-labored respiration]. Heart: [normal rhythm; no ectopy; slightly tachy rate on exam 110/min Neurologic: [Awake, alert, and oriented X3, CN II-XII intact; non focal neuro exam Psychiatric: [Cooperative, appropriate Additional Vitals BP Position/Location: Sitting, Left arm Assessment/Plan 1. Developmental disability 2. Autism 3. Seizures 4. GERD (gastroesophageal reflux disease) 5. Hypercholesterolemia 6. IFG (impaired fasting glucose) Orders: Complete Blood Count w/ Differential Comprehensive Metabolic Panel Hemoglobin A1c Lipid Panel Thyroid Stimulating Hormone updated labs above and call results keep psychiatry follow up annual follow up and prn here- Time Spent with the Patient I have personally spent [23] minutes on this date, directly related to [...] Oral, HS (at bedtime), 3 refills chlorproMAZINE 25 mg oral tablet, 25 mg= 1 tabs, Oral, TID, 1 refills divalproex sodium 500 mg oral tablet, extended release, See Instructions, 2 refills, TAKE 2 TABLETS BY MOUTH AT BEDTIME fluvoxaMINE 100 mg oral tablet, See Instructions, 2 refills, TAKE 1 TABLET BY MOUTH AT BEDTIME hydrOXYzine hydrochloride 25 mg oral tablet, See Instructions, 6 refills, TAKE 1 TABLET BY MOUTH THREE TIMES DAILY ibuprofen 200 mg oral tablet, 400 mg= 2 tabs, Oral, q8hr, PRN, 1 refills, 2 tabs every 8 hours as needed for headache or backache KlonoPIN 0.5 mg oral tablet, 0.5 mg= 1 tabs, Oral, BID, 3 refills loratadine 10 mg oral tablet, 10 mg= 1 tabs, Oral, Daily, 3 refills Melatonin 10 mg oral tablet, disintegrating, See Instructions, 1 refills, DISSOLVE 1 (ONE) TABLET BY MOUTH AT BEDTIME Myrbetriq 50 mg oral tablet, extended release, 50 mg= 1 tabs, Oral, Daily, 12 refills nitrofurantoin macrocrystals 100 mg oral capsule, 100 mg= 1 caps, Oral, Daily, 3 refills omeprazole 40 mg oral delayed release capsule, 40 mg= 1 caps, Oral, Daily, 1 refills paliperidone 6 mg oral tablet, extended [...] D3 2000 intl units oral tablet, See Instructions, TAKE 1 TABLET BY MOUTH DAILY Allergies morphine (unknown) Social History Alcohol Never [...] history is unknown Immunizations Vaccine Date Status SARS-CoV-2 mRNA vaccine 07/07/2021 Recorded influenza virus vaccine, inactivated 03/19/2021 Given SARS-CoV-2 (COVID-19) mRNA BNT-162b2 vax 07/11/2020 Recorded SARS-CoV-2 (COVID-19) mRNA BNT-162b2 vax 06/20/2020 Recorded influenza virus vaccine, inactivated 03/02/2017 Given influenza virus vaccine, inactivated 02/24/2016 Recorded influenza virus vaccine, inactivated 04/18/2015 Recorded influenza virus vaccine, inactivated 02/28 (more content not included)... Normal [facility] Hgb A1con 06-26-2024 Glucose [Mass/Vol] 108 mg/dL Normal 68-114 [facility] Comment on above: Result Comment: Math ematical Calc approx. The mean gluc equivalency of A1c Performed By: #### H BA1C #### [address] [address] Hgb A1c 5.4 % A1c Normal 4.0-5.6 [facility] Comment on above: Result Comment: Refe rence Range: 4.0 - 5.6 % Normal 5.7 - 6.4 % Pre-Diabetes > 6.5 % Diabetes Performed By: #### H BA1C #### [address] [address] Lipid Panelon 06-26-2024 Cholesterol in LDL [Mass/Vol] 88 mg/dL Normal 0-99 [facility] Comment on above: Result Comment: The equation being used in this calculation is LDL = (Chol - HDL) - (Trig / 5) The optimal value of LDL for individual patients may vary. The patient's history of Artherosclerosis and other cardiac risk factors should be considered. Performed By: #### . Automated Diff #### [address] [address] Cardiac Risk 3.1 Normal [facility] Comment on above: Result Comment: Men Women 1/2 Average 3.43 3.27 Average 4.97 4.44 2x Average 9.55 7.05 3x Average 23.99 11.04 Performed By: #### . Automated Diff #### [address] [address] Cholesterol [Mass/Vol] 166 mg/dL Normal 25-199 [facility] Comment on above: Result Comment: 0 - 17 years of age: Desirable 0-170 Borderline High 170-199 High >=200 18 years and older: Acceptable <200 Borderline High 200-239 High >=240 Performed By: #### . Automated Diff #### [address] [address] Cholesterol in HDL [Mass/Vol] 53.8 mg/dL Normal 40.0-60.0 [facility] Comment on above: Performed By: #### . Automated Diff #### [address] [address] Cholesterol in VLDL [Mass/Vol] 24 mg/dL Normal 8-39 [facility] Comment on above: Performed By: #### . Automated Diff #### [address] [address] Triglyceride [Mass/Vol] 120 mg/dL Normal [facility] Comment on above: Result Comment: 0 - 17 years of age: Trig 90 - 129 Borderline High Trig => 130 High 18 years and older: Trig 150 - 199 Borderline High Trig 200 - 499 High Trig =>500 Very High Performed By: #### . Automated Diff #### [address] [address] TSHon 06-26-2024 TSH Qn 1.17 m[IU]/L Normal 0.45-5.33 [facility] Comment on above: Result Comment: Refe rence Ranges for individuals from to 18 years of age were obtained from The Stacy Hilton Handbook (20 ed) published by [facility]. Reference Ranges for Females: Females, 1st Trimester 0.05 ? 3.7 uIU/mL Females, 2nd Trimester 0.31 ? 4.35 uIU/mL Females, 3rd Trimester 0.41 ? 5.18 uIU/mL Performed By: #### . Automated Diff #### [address] [address] Urology Office/Clinic Noteon 02-09-2024 Urology Office/Clinic Note Chief Complaint 1-2 month follow up with med check History of Present Illness Last seen by our urological team November 11, 2023 Patient comes with: Caregiver 44 Years, Female Progress Patient is nonverbal. Presents with her caregivers today. Information obtained from caregivers. Patient was started on mirabegron daily for urinary incontinence and frequency. Urinary frequency has improved she is now urinating every 2 hours (previously every hour), nocturia at times she does use a brief. Does have some incontinence, uses 1 pad during the day (previously 10) no urgency, denies hesitancy, stream is good, denies hematuria, no dysuria, emptying her bladder well. Review of Systems GI: No abdominal pain, No flank pain : No dysuria, No hematuria Physical Exam Vitals & Measurements HT: 149 cm WT: 77.1 kg WT: 77.1 kg (Dosing) BMI: 34.73 General: alert, non-toxic, no distress, well developed Neuro: Mainly nonverbal, arrives with caregivers, cooperative with examination : deferred Additional Vitals No qualifying data available. Assessment/Plan 1. Urinary frequency Improvement of urinary frequency with mirabegron 50 mg daily. Will continue on medication. Patient is tolerating medication well. 2. Urinary incontinence Improved on mirabegron 50 mg daily. Continue to use pads, briefs, timed voiding for incontinence. Orders: mirabegron, 1 tabs, Oral, Daily, # 30 tabs, 12 Refill(s), Pharmacy: [facility][id number] Medical Decision Making Chronic conditions NOT [...] Oral, HS (at bedtime), 3 refills chlorproMAZINE 50 mg oral tablet, 50 mg= 1 tabs, Oral, TID, 2 refills, reduced dose divalproex sodium 500 mg oral tablet, extended release, See Instructions, 2 refills, TAKE 2 TABLETS BY MOUTH AT BEDTIME fluvoxaMINE 100 mg oral tablet, See Instructions, 2 refills, TAKE 1 TABLET BY MOUTH AT BEDTIME hydrOXYzine hydrochloride 25 mg oral tablet, See Instructions, 6 refills, TAKE 1 TABLET BY MOUTH THREE TIMES DAILY ibuprofen 200 mg oral tablet, 400 mg= 2 tabs, Oral, q8hr, PRN, 1 refills, 2 tabs every 8 hours as needed for headache or backache KlonoPIN 0.5 mg oral tablet, 0.5 mg= 1 tabs, Oral, BID, 1 refills loratadine 10 mg oral tablet, 10 mg= 1 tabs, Oral, Daily, 3 refills Melatonin 10 mg oral tablet, disintegrating, 10 mg= 1 tabs, Oral, HS (at bedtime), 1 refills, increased dose Myrbetriq 50 mg oral tablet, extended release, 50 mg= 1 tabs, Oral, Daily, 12 refills nitrofurantoin macrocrystals 100 mg oral capsule, 100 [...] D3 2000 intl units oral tablet, See Instructions, TAKE 1 TABLET BY MOUTH DAILY Allergies morphine (unknown) Social History Alcohol Never [...] Given influenza virus vaccine, inactivated 03/02/2017 Given Electronically signed by _ Dany RIVERAN-PALLAVI, Rosa James 02/09/24 11:32 EDT Normal [facility] .eGFRon 12-26-2023 GFR/1.73 sq M.predicted MDRD (S/P/Bld) [Vol rate/Area] mL/min/{1.73_m2} Normal >=60 [facility] Comment on above: Result Comment: [facility] have implemented the eGFR calculation approach [...] 1 Age = years Performed By: #### . Automated Diff #### [address] [address] Basic Metabolic Profileon Anion gap [Moles/Vol] 9 mmol/L Normal 4-12 [facility] Comment on above: Performed By: #### . Automated Diff #### [address] [address] Calcium [Mass/Vol] 9.5 mg/dL Normal 8.5-10.3 [facility] Comment on above: Performed By: #### . Automated Diff #### [address] [address] Chloride [Moles/Vol] 100 mmol/L Normal 98-110 [facility] Comment on above: Performed By: #### . Automated Diff #### [address] [address] CO2 [Moles/Vol] 24 mmol/L Normal 22-32 [facility] Comment on above: Performed By: #### . Automated Diff #### [address] [address] Creatinine [Mass/Vol] 0.86 mg/dL Normal 0.44-1.03 [facility] Comment on above: Performed By: #### . Automated Diff #### [address] [address] Glucose [Mass/Vol] 82 mg/dL Normal 70-99 [facility] Comment on above: Performed By: #### . Automated Diff #### [address] [address] Potassium [Moles/Vol] 4.4 mmol/L Normal 3.4-4.8 [facility] Comment on above: Performed By: #### . Automated Diff #### [address] [address] Sodium [Moles/Vol] 133 mmol/L Normal 133-142 [facility] Comment on above: Performed By: #### . Automated Diff #### [address] [address] Urea nitrogen [Mass/Vol] 16 mg/dL Normal 8-26 [facility] Comment on above: Performed By: #### . Automated Diff #### [address] [address] Urea nitrogen/Creatini ne [Mass ratio] 18.6 mg/mg Normal 10.0-20.0 [facility] Comment on above: Performed By: #### . Automated Diff #### [address] [address] CBC w/ Diffon 12-26-2023 Erythrocyte distribution width (RBC) [Ratio] 14.9 % High 11.6-14.8 [facility] Comment on above: Performed By: #### . Automated Diff #### [place] [id number] Hematocrit (Bld) [Volume fraction] 37.8 % Normal 36.0-46.0 [facility] Comment on above: Performed By: #### . Automated Diff #### [place] [id number] Hemoglobin (Bld) [Mass/Vol] 12.4 g/dL Normal 12.0-16.0 [facility] Comment on above: Performed By: #### . Automated Diff #### [place] [id number] MCH (RBC) [Entitic mass] 30.2 pg Normal 27.0-35.0 [facility] Comment on above: Performed By: #### . Automated Diff #### [place] [address] MCHC 32.9 % Normal 31.0-37.0 [facility] Comment on above: Performed By: #### . Automated Diff #### [place] [id number] MCV (RBC) [Entitic vol] 91.7 fL Normal 80.0-100.0 [facility] Comment on above: Performed By: #### . Automated Diff #### [place] [id number] Platelet 149 x10*3/mcL Low 150-450 [facility] Comment on above: Performed By: #### . Automated Diff #### [address] [address] Platelet mean volume (Bld) [Entitic vol] 8.7 fL Normal 6.7-10.6 [facility] Comment on above: Performed By: #### . Automated Diff #### [address] [address] RBC 4.12 x10*6/mcL Normal 3.80-5.20 [facility] Comment on above: Performed By: #### . Automated Diff #### [address] [address] WBC 6.0 x10*3/mcL Normal 4.5-11.0 [facility] Comment on above: Performed By: #### . Automated Diff #### [address] [address] Diff Autoon 12-26-2023 Baso Absolute 0.0 x10*3/mcL Normal 0.0-0.2 [facility] Comment on above: Performed By: #### . Automated Diff #### [address] [address] Basophils/100 WBC (Bld) 0.5 % Normal 0.0-1.5 [facility] Comment on above: Performed By: #### . Automated Diff #### [address] [address] Eos Absolute 0.1 x10*3/mcL Normal 0.0-0.4 [facility] Comment on above: Performed By: #### . Automated Diff #### [address] [address] Eosinophils/100 WBC (Bld) 2.4 % Normal 0.0-5.4 [facility] Comment on above: Performed By: #### . Automated Diff #### [address] [address] Lymph Absolute 2.4 x10*3/mcL Normal 1.0-4.8 [facility] Comment on above: Performed By: #### . Automated Diff #### [address] [address] Lymphocytes/100 WBC (Bld) 40.2 % Normal 27.2-40.8 [facility] Comment on above: Performed By: #### . Automated Diff #### [address] [address] [place] Absolute 0.5 x10*3/mcL Normal 0.1-1.1 [facility] Comment on above: Performed By: #### . Automated Diff #### [address] [address] Monocytes/100 WBC (Bld) 7.8 % Normal 3.7-11.9 [facility] Comment on above: Performed By: #### . Automated Diff #### [address] [address] Neutro Absolute 2.9 x10*3/mcL Normal 1.8-7.7 [facility] Comment on above: Performed By: #### . Automated Diff #### [address] [address] [address] Neutro Auto 49.1 % Normal 47.2-70.8 [facility] Comment on above: Performed By: #### . Automated Diff #### [address] [address] Hep Func Panelon 12-26-2023 Albumin [Mass/Vol] 4.4 g/dL Normal 3.2-4.9 [facility] Comment on above: Performed By: #### L IVER #### [address] [address] Alk Phos 58 IU/L Normal 32-91 [facility] Comment on above: Performed By: #### L IVER #### [address] [address] ALT [Catalytic activity/Vol] 36 U/L Normal 14-54 [facility] Comment on above: Performed By: #### L IVER #### [address] [address] AST [Catalytic activity/Vol] 27 U/L Normal 15-41 [facility] Comment on above: Performed By: #### L IVER #### [address] [address] Bili Direct 0.1 mg/dL Normal 0.1-0.5 [facility] Comment on above: Performed By: #### L IVER #### [address] [address] Bili Indirect 0.4 mg/dL Normal 0.0-1.0 [facility] Comment on above: Performed By: #### L IVER #### [address] [address] Bili Total 0.5 mg/dL Normal 0.3-1.2 [facility] Comment on above: Performed By: #### L IVER #### [address] [address] Protein [Mass/Vol] 7.8 g/dL Normal 6.5-8.1 [facility] Comment on above: Performed By: #### L IVER #### [address] [address] TSHon 12-26-2023 TSH Qn 2.13 m[IU]/L Normal 0.45-5.33 [facility] Comment on above: Result Comment: Refe rence Ranges for individuals from to 18 years of age were obtained from The Stacy Hilton Handbook (20 ed) published by [facility]. Reference Ranges for Females: Females, 1st Trimester 0.05 ? 3.7 uIU/mL Females, 2nd Trimester 0.31 ? 4.35 uIU/mL Females, 3rd Trimester 0.41 ? 5.18 uIU/mL Performed By: #### T SH #### [address] [address] Valproicon 12-26-2023 Valproic Acid Level 102.3 mcg/mL High 50.0-100.0 [facility] Comment on above: Performed By: #### V AL #### [address] [address] Urology Office/Clinic Noteon 11-11-2023 Urology Office/Clinic Note [...] : deferred recent pelvic exam performed by [facility], negative findings per their report Additional Vitals [...] chew, # 30 tabs, 0 Refill(s), Pharmacy: [facility] Medical Decision Making Chronic conditions NOT [...] See Instructio (more content not included)... Normal [facility] Gynecology Office/Clinic Not black 09-01-2023 Gynecology Office/Clinic Note Chief Complaint UI, Hx hyst 2006. History of Present Illness Here with [place] [facility] non verbal hyst with ovaries removed. [place] [facility] reports she is sedentary start UI again after trip to [facility] and [facility]. Macrobid daily Review of Systems Cough: No [...] symptoms after ATB and re training bladder. 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 Normal [facility] FOOT LEFT 3 [facility] 02-03-2021 FOOT LEFT 3 [facility] Department of Radiology [address] [place] [phone] == Patient Name: ORALIA WHITFIELD : 1980 Sex: F Age: Race: White Pt. Location: Patient Status: O Ordered Date: 02/03/2021 11:20:00 AM Completed Date: 02/03/2021 11:32 AM Requesting Provider: LA MCKINNON Attending Provider: LA MCKINNON Report Copy To: Signs & Symptoms: S92.345A Nondisp fx of fourth metatarsal bone, left foot, init I10 History: Comments: Evaluate Exam: FOOT LEFT 3 [facility] == FOOT LEFT 3 S 02/03/2021 11:32 [...] necks. Electronically signed: Devon Allan. Transcribed by: [email or web address], User Resident: Electronically Signed by: DEVON ALLAN @ 02/03/2021 12:49 PM Normal [facility] Comment on above: Order Comment: Evalu ate FOOT LEFT 3 [facility] 01-06-2021 FOOT LEFT 3 [facility] Department of Radiology [address] [place] [phone] == Patient Name: ORALIA WHITFIELD : 1980 Sex: F Age: Race: White Pt. Location: 84 Patient Status: O Ordered Date: 01/06/2021 9:45:00 AM Completed Date: 01/06/2021 09:49 AM Requesting Provider: LA MCKINNON Attending Provider: LA MCKINNON Report Copy To: Signs & Symptoms: S92.345A Nondisp fx of fourth metatarsal bone, left foot, init I10 History: Comments: evalaute Exam: FOOT LEFT 3 [facility] == FOOT LEFT 3 S 01/06/2021 9:49 [...] report. Electronically signed: Lenny Law. Transcribed by: [email or web address], User Resident: AAMIR LENTZ Electronically Signed by: LENNY LAW @ 01/06/2021 12:04 PM I personally read this/these film(s) with this resident Normal [facility] Comment on above: Order Comment: nacho wu FOOT LEFT 3 [facility] 12-16-2020 FOOT LEFT 3 [facility] Department of Radiology [address] [place] [phone] == Patient Name: ORALIA WHITFIELD : [...] LEFT 3 VWS == FOOT LEFT 3 VWS HISTORY: Foot injury, fracture. COMPARISON: None. IMPRESSION: 1. Nondisplaced fracture with subtle healing changes of the fourth metatarsal neck. 2. Additional subtle cortical irregularity along the fifth metatarsal neck is subtle transverse lucency with subtle sclerosis of the third metatarsal neck may reflect additional nondisplaced fractures. Electronically signed: Lenny Law. Transcribed by: [email or web address], User Resident: Electronically Signed by: LENNY LAW @ 12/17/2020 10:25 AM Normal [facility] Comment on above: Order Comment: Evalu ate Urine Cultureon 12-02-2020 Bacteria identified Cx Nom (U) Final report Critically abnormal . [facility] Comment on above: Order Comment: Reaso n for Exam Urge incontinence of urine Performed By: #### U RINE CULTURE #### [facility] , Ur Cult Antimic Suceptibility Normal . [facility] Comment on above: Order Comment: Reaso n [...] S Tobramycin S Trimethoprim/Sulfa S Performed at: - [facility] [id number] Telephone Technician: Kodak Tracy PhD, Phone: [phone] PERFORMED BY: [place] [address] PATHOLOGIST LICENSED PHYSICAL THERAPIST ROSA ISELA GORE M.D. Performed By: #### U RINE CULTURE #### [facility] , Urine Culture, Res 1 Escherichia coli Critically abnormal . [facility] Comment on above: Order Comment: Reaso n [...] 3V*on 021 XR foot LT min 3V* [place] [address] XRay Report Signed Patient: Oralia Whitfield MR#: [id number] : 1980 Acct:[id number] Age/Sex: 40 / F ADM Date: 12/02/20 Loc: XDUCLY Room: Type: [facility] Attending Dr: Lucero DEGROOT Ordering Provider: LUCERO [...] Modesto Jones M.D.12/02/2020 5:14 PM Dictation Location: [place] [address] Transcribed By: [facility] 12/02/201713 Dictated By: [place] Jones DO 12/02/201706 Signed By: 12/02/201713 [facility] Urine Cultureon 09-05-2020 Bacteria identified Cx Nom (U) Reason for Exam Dysuria Urine Reason for Exam: Dysuria : Urine ORGANISM: Escherichia coli (O:ESCCOL) [place] Count >100,000 Aerobic LYNNE Charge (NUC86) - [...] RESISTANT TO ALL B-LACTAM DRUGS. PERFORMED BY: [facility] [address] [place] [address] PATHOLOGIST LICENSED PHYSICAL THERAPIST ROSA ISELA GORE M.D. [facility] Comment on above: Performed By: #### C UU #### [facility] [address] [place] [address] [facility] XR WRIST RIGHT MINIMUM 3 VIE WSon 10-09-2017 XR WRIST RIGHT MINIMUM 3 VIEWS CLINICAL: Status post fall. Fracture risk. Status post attempted reduction.COMPARISON: Earlier radiographs TECHNIQUE: 3 views of the right wrist FINDINGS: There is attempted reduction with persistent mal- alignment of the fracture site..IMPRESSION:Persist ent displacement of the fracturesWorkstation ID:[id number] fell. Post reduction. Patient has autism and is MRDD. Tech held for films best images possible. Normal [facility] XR WRIST RIGHT MINIMUM 3 VIEWS CLINICAL: Right wrist fracture, post reduction.COMPARISON: Earlier radiographs TECHNIQUE: 3 views of the right wrist FINDINGS: There is interval reduction of the distal radius fracture. There is improved alignment..IMPRESSION:Po st reductionWorkstation ID:[id number] attempt post reduction of right wrist fx. Held for images by tech. Normal [facility] CT HEAD WITHOUT CONTRASTon 0 10-08-2017 CT [...] lesions. IMPRESSION: No acute intracranial injury detected.Workstation ID:[id number] ambulated to triage desk with mom. Mom stated pt fell out of a case picker truck while holding her lunch. Has head & R wrist inj. Mom denies LOC. Pt has abrasions above R eyebrow, & under R eye, is bleeding from her nose, & has a deformity to her R wrist. Mom said pt is autistic, and MRDD. Mx: noneSx: noneNoncontrastabg-c Normal [facility] CT MAXILLOFACIAL / SINUS WIT [...] fracture seen IMPRESSION:Negative for facial fracture. Workstation ID:[id number] ambulated to triage desk with mom. Mom stated pt fell out of a case picker truck while holding her lunch. Has head & R wrist inj. Mom denies LOC. Pt has abrasions above R eyebrow, & under R eye, is bleeding from her nose, & has a deformity to her R wrist. Mom said pt is autistic, and MRDD. Mx: noneSx: noneNoncontrastabg-c [facility] CT SPINE CERVICAL WITHOUT CO NTRASTon 10-08-2017 [...] of cervical lordosis.IMPRESSION:No acute osseous injury seen.Workstation ID:[id number] ambulated to triage desk with mom. Mom stated pt fell out of a case picker truck while holding her lunch. Has head & R wrist inj. Mom denies LOC. Pt has abrasions above R eyebrow, & under R eye, is bleeding from her nose, & has a deformity to her R wrist. Mom said pt is autistic, and MRDD. Mx: noneSx: noneNoncontrastabg-c [facility] XR CHEST PA OR AP 1 VIEW (PO RTABLE)on 10-08-2017 XR CHEST PA OR AP 1 VIEW (PORTABLE) CLINICAL: Fell out of a truck.COMPARISON: noneTECHNIQUE: AP portable chestFINDINGS:The lungs are clear. Pulmonary vascularity is normal.IMPRESSION: No acute lung lesion seen.Workstation ID:[id number] stated patient fell out of a case picker truck while holding her lunch. Right wrist injury, obvious deformity. Mom denies LOC. Mom said pt is autistic, and MRDD. Poor historian. Normal [facility] XR PELVIS 1 OR 2 VIEWSon XR PELVIS 1 OR 2 VIEWS CLINICAL: Patient fell out of a truck.COMPARISON: NoneTECHNIQUE: AP pelvisFINDINGS:The osseous pelvis is intact. Hip alignment is anatomic, and the sacroiliac joints are unremarkable. IMPRESSION: Unremarkable AP pelvis x-rays.Workstation ID:[id number] stated patient fell out of a case picker truck while holding her lunch. Right wrist injury, obvious deformity. Mom denies LOC. Mom said pt is autistic, and MRDD. Poor historian. Normal [facility] XR WRIST RIGHT MINIMUM 3 VIE WSon 10-08-2017 XR WRIST RIGHT MINIMUM 3 VIEWS CLINICAL: Fell out of a truck. Right wrist pain and injuryCOMPARISON: None TECHNIQUE: 3 views of the right wrist FINDINGS: There is comminuted displaced fracture of the distal radius and an avulsion fracture of the ulnar styloid..IMPRESSION:Frac ture distal radius and ulna styloid processWorkstation ID:[id number] stated patient fell out of a case picker truck while holding her lunch. Right wrist injury, obvious deformity. Mom denies LOC. Mom said pt is autistic, and MRDD. Poor historian. Normal [facility] Encounters Encounter Date Encounter Type Care Provider Facility Start: 06-26-2024 End: 06-26-2024 ambulatory Rashi Gruber MD Facility:[facility] Start: 05-31-2024 End: 05-31-2024 ambulatory Rashi Grubre MD Facility:[facility] Start: 04-30-2024 End: 04-30-2024 ambulatory Rashi Gruber MD Facility:[facility] Start: 03-27-2024 End: 03-27-2024 ambulatory Rashi Gruber MD Facility:[facility] Start: 03-19-2024 End: 03-19-2024 ambulatory Wayne Coronel MD Facility:[facility] Start: 02-09-2024 End: 02-09-2024 ambulatory Rosa Saenz APRN-CAKE DECORATOR Facility:[facility] Start: 2024 End: 2024 ambulatory Wayne Coronel MD Facility:[facility] Start: 01-02-2024 End: 01-02-2024 ambulatory Wayne Coronel MD Facility:[facility] Start: 12-26-2023 End: 12-26-2023 ambulatory Wayne Coronel MD Facility:[facility] Start: 11-14-2023 End: 11-14-2023 ambulatory Wayne Coronel MD Facility:[facility] Start: 11-11-2023 End: 11-11-2023 ambulatory Rosa Saenz EDGE BANDER OPERATOR-CAKE DECORATOR Facility:[facility] Start: 10-27-2023 End: 10-27-2023 ambulatory Roxana Blanco EDGE BANDER OPERATOR-CAKE DECORATOR Facility:[facility] Start: 10-05-2023 End: 10-05-2023 ambulatory Wayne Coronel MD Facility:[facility] Start: 09-01-2023 End: 09-01-2023 ambulatory Roxana Blanco EDGE BANDER OPERATOR-CAKE DECORATOR Facility:[facility] Start: 08-31-2023 End: 08-31-2023 ambulatory Wayne Coronel MD Facility:[facility] Start: 08-02-2023 End: 08-02-2023 ambulatory Wayne Coronel MD Facility:[facility] Start: 08-23-2022 End: 08-23-2022 ambulatory NICKIE DESHPANDE Facility: Start: 10-08-2017 End: 10-08-2017 Emergency department patient visit KIERAN DIAZ [facility] Plan of Treatment Date Care Activity Detail Author Start: 09-19-2024 ambulatory Ambulatory Facility:[facility] Payers Date Payer Category Payer Medicaid 2021 Medicare 1980 Unknown [id number] [id number] 1980 Unknown [id number] 2.. [id number] 1980 Unknown [id number] .. 840.1.793496.3.579.2.196 1980 Unknown [id number] 2. 840.1.287758.3.579.2. 1980 Unknown [id number] 2.16 840.1.870232.3.579.2. 1980 Unknown [id number] 2. 840.1.172429.3.579.2. 1980 Unknown [id number] 2. 840.1.731826.3.579.2. 1980 Unknown [id number] 2. 840.1.855110.3.579.2. 1980 Unknown [id number] 2. 840.1.718681.3.579.2. 1980 Unknown [id number] 2.0.1.322024.3.579.2. 1980 Unknown [id number] 2. 840.1.258234.3.579.2. 1980 Unknown [id number] 2.0.1.333008.3.579.2. 1980 Unknown [id number] 2. 840.1.454304.3.579.2. 1980 Unknown [id number] 20.1.210734.3.579.2. 1980 Unknown [id number] 2. 840.1.622641.3.579.2. 1980 Unknown [id number] 2. 840.1.054698.3.579.2. 1980 Unknown [id number] 2. 840.1.534179.3.579.2. 1980 Unknown [id number] 2. 840.1.903186.3.579.2. 1980 Unknown [id number] 2. 840.1.497443.3.579.2. 1980 Unknown [id number] 2.16. 840.1.493308.3.579.2. 1980 Unknown [id number] 2.16. 840.1.696127.3.579.2.196 1980 Unknown [id number] 2.16. 840.1.341198.3.579.2. 1980 Unknown [id number] 2.16. 840.1.208292.3.579.2. 1980 Unknown [id number] 2.16. 840.1.109583.3.579.2.196 1957 Medicaid [id number] 1957 Medicare [id number] Medicare [id number] Clinical Note 08-23-2022 Note Date & Type [...] by: DELMY CHÁVEZ Date: 2022-08-23 12:45 [facility] Clinical Note 08-23-2022 Note Date & Type [...] by: DELMY CHÁVEZ Date: 2022-08-23 12:45 [facility] Summary Purpose Family History No Family History Records FoundNo Family History Records FoundNo Family History Records FoundNo Family History Records FoundNo Family History Records Found Advance Directives No Advanced Directives Records FoundNo Advanced Directives Records FoundNo Advanced Directives Records FoundNo Advanced Directives Records FoundNo Advanced Directives Records Found Additional Source Comments INFORMATION SOURCE (unrecogn ized section and content) DATE CREATED AUTHOR 11/15/2017 [facility] DATE CREATED AUTHOR AUTHOR'S ORGANIZ ATION 02/04/2021 [facility] DATE CREATED AUTHOR AUTHOR'S ORGANIZ ATION 07/15/2021 [facility] DATE CREATED AUTHOR AUTHOR'S ORGANIZ ATION 08/24/2022 [facility] DATE CREATED AUTHOR AUTHOR'S ORGANIZ ATION 06/27/2024 [facility] FOR RECORDS PERTAINING TO PATIENTS WHO ARE [...] BE BASED ON THE PRIMARY CLINICAL RECORDS. [facility] [employer] [facility]. provides no warranty or guarantee of the accuracy or completeness of information in this document.
[2024-07-02 19:26] VITALS: BP 130/84; PULSE 112; O2SAT 99
--- NOTE | 2024-07-02 19:31 | XR_ITS ---
The [place] [id number] Patient Name: ORALIA WHITFIELD MRN: [id number] date: 1980 Sex: F Assigned Patient Location: ER Current Patient Location: ED.MAIN Accession/Order Number: [id number] Exam Date: 07/02/2024 19:52 Report Date: 07/02/2024 20:43 At the request of: JOHN LONG Procedure: XR wrist LT min 3V EXAM: XR wrist LT min 3V HISTORY: Fall- deformity visible COMPARISON: None. TECHNIQUE: 3 views of the left wrist were obtained. FINDINGS: There is a comminuted and impacted fracture involving the distal radial metaphysis. The distal fracture fragments are displaced dorsally and radially approximately 1 cm, with eccentric impacted radially, with flattening of the radial inclination and dorsal tilt of the distal radius. Fracture lines do not clearly extend to the articular surface of the distal radius. There is a small fracture fragment involving the ulnar styloid process which is displaced 1 cm radially. There is no other apparent acute fracture or dislocation. Diffuse soft tissue swelling is noted. XR/XR wrist LT min 3V IMPRESSION: Fractures of the distal radius and ulna, as described above. Electronically authenticated by: MARCOS RICHARDS Date: 07/02/2024 20:43
--- NOTE | 2024-07-02 21:40 | ED_ITS ---
HPI HPI - Extremity Injury (Upper) General Chief Complaint: Extremity Injury, Upper Stated Complaint: LEFT WRIST PAIN Time Seen by Provider: 07/02/24 19:59 Source: patient Limitations: no limitations History of Present Illness HPI narrative: This 44-year-old female who is right-hand dominant is brought to the emergency department by 2 caretakers from the sn[facility] where she currently resides. Apparently the patient has a history of behavioral outbursts and threw herself on the ground during an outburst earlier today. She has a visible deformity to the left distal radius and ulna. Related Data Home Medications ?Medication ?Instructions ?Recorded ?Confirmed benztropine 2 mg tablet 2 mg PO DAILY 01/13/23 01/13/23 cholecalciferol (vitamin D3) 50 50 mcg PO DAILY 01/13/23 01/13/23 mcg (2,000 unit) tablet divalproex 500 mg tablet,extended 1,000 mg PO BEDTIME 01/13/23 01/13/23 release 24 hr estradiol 1 mg tablet 1 mg PO DAILY 01/13/23 01/13/23 fluphenazine HCl 5 mg tablet 5 mg PO TID 01/13/23 01/13/23 fluvoxamine 100 mg tablet 100 mg PO DAILY 01/13/23 01/13/23 loratadine 10 mg tablet 10 mg PO Q24H 01/13/23 01/13/23 melatonin 5 mg tablet 5 mg PO BEDTIME 01/13/23 01/13/23 nitrofurantoin macrocrystal 100 mg 100 mg PO Q24H 01/13/23 01/13/23 capsule omeprazole 40 mg capsule,delayed 40 mg PO DAILY 01/13/23 01/13/23 release paliperidone 6 mg tablet,extended 12 mg PO Q24H 01/13/23 01/13/23 release 24 hr Allergies Allergy/AdvReac Type Severity Reaction Status Date / Time morphine Allergy Unknown Abdominal Verified 07/02/24 19:31 Pain Milk Containing Products AdvReac Unknown Abdominal Verified 07/02/24 19:31 (Dairy) Pain Opioid HPI Opioid Management Most Recent Pain and Opioid Data: No Data to Display Review of Systems ROS Status of ROS 10 or more systems reviewed and unremark able except as noted in history and below Exam Narrative Exam Narrative: Vital signs and Nursing Notes reviewed: Upon arrival the patient was tachycardic with a pulse of 112, blood pressure stable at 130/84, she is not hypoxic with pulse ox of 99% on room air General: Awake, alert, nontoxic adult female, no respiratory distress HEENT: Normocephalic atraumatic, mucous membranes are moist and pink, eyes are clear, normal conjunctiva, vision is grossly intact, posterior pharynx is normal in appearance. Chest: Lungs are clear to auscultation with good air entry, there is no wheezing rhonchi or rales appreciated no accessory muscle use, patient is speaking in complete sentences-no chest wall tenderness to palpation CVS: Regular rate and rhythm S1-S2, no murmurs rubs or gallops, pulses are brisk and equal bilaterally ABD: Soft, nondistended, nontender, no rebound guarding or rigidity, bowel sounds are normal, no pulsatile masses appreciated Extremities: Visable deformity and tenderness to the left distal radius. Patient is moving her fingers. Fingers are warm and sensate. Radial pulses brisk Skin: Normal in appearance without rash,pallor, petechiae or purpura Neuro: No focal deficits Constitutional Vital Signs, click to edit/add: Last Vital Signs Pulse 103 H 07/02/24 23:19 Resp 16 07/02/24 23:19 BP 128/64 07/02/24 23:19 Pulse Ox 94 L 07/02/24 23:19 O2 Del Method Room Air 07/02/24 19:26 O2 Flow Rate 2 07/02/24 23:05 Course Vital Signs Vital signs: Vital Signs Pulse Rate 112 H 07/02/24 19:26 Respiratory Rate 20 07/02/24 19:26 Blood Pressure 130/84 07/02/24 19:26 Pulse Oximetry 99 07/02/24 19:26 Oxygen Delivery Method Room Air 07/02/24 19:26 Pulse Rate 103 H 07/02/24 23:19 Respiratory Rate 16 07/02/24 23:19 Blood Pressure 128/64 07/02/24 23:19 Pulse Oximetry 94 L 07/02/24 23:19 Oxygen Delivery Method Room Air 07/02/24 19:26 Oxygen Delivery Flow Rate 2 07/02/24 23:05 MDM - Extremity Injury (Upper) Medical Records Medical records narrative: The [address] [address] XRay Report Signed Patient: ORALIA WHITFIELD MR#: [id number] : 1980 Acct:[id number] Age/Sex: 44 / F ADM Date: 07/02/24 Loc: ER Attending Dr: Ordering Physician: John Long M.D. Date of Service: 07/02/24 Procedure(s): XR wrist LT min 3V Accession Number(s): [id number] cc: John Long M.D.; Physician,Non-Staff Niraj~ The [place] [address] Patient Name: ORALIA WHITFIELD MRN: [id number] date: 1980 Sex: F Assigned Patient Location: ER Current Patient Location: ED.MAIN Accession/Order Number: [id number] Exam Date: 07/02/2024 19:52 Report Date: 07/02/2024 20:43 At the request of: JOHN LONG Procedure: XR wrist LT min 3V EXAM: XR wrist LT min 3V HISTORY: Fall- deformity visible COMPARISON: None. TECHNIQUE: 3 views of the left wrist were obtained. FINDINGS: There is a comminuted and impacted fracture involving the distal radial metaphysis. The distal fracture fragments are displaced dorsally and radially approximately 1 cm, with eccentric impacted radially, with flattening of the radial inclination and dorsal tilt of the distal radius. Fracture lines do not clearly extend to the articular surface of the distal radius. There is a small fracture fragment involving the ulnar styloid process which is displaced 1 cm radially. There is no other apparent acute fracture or dislocation. Diffuse soft tissue swelling is noted. XR/XR wrist LT min 3V IMPRESSION: Fractures of the distal radius and ulna, as described above. Electronically authenticated by: MARCOS RICHARDS Date: 07/02/2024 20:43 Discharge Plan Discharge Chief Complaint: Extremity Injury, Upper Clinical Impression: Fracture of wrist Patient Disposition: Home, Self-Care Time of Disposition Decision: 23:22 Condition: Good Prescriptions / Home Meds: No Action omeprazole 40 mg capsule,delayed release(DR/EC) 40 mg PO DAILY estradiol 1 mg tablet 1 mg PO DAILY paliperidone 6 mg tablet extended release 24hr 12 mg PO Q24H fluphenazine HCl 5 mg tablet 5 mg PO TID benztropine 2 mg tablet 2 mg PO DAILY fluvoxamine 100 mg tablet 100 mg PO DAILY divalproex 500 mg tablet extended release 24 hr 1,000 mg PO BEDTIME loratadine 10 mg tablet 10 mg PO Q24H melatonin 5 mg tablet 5 mg PO BEDTIME nitrofurantoin macrocrystal 100 mg capsule 100 mg PO Q24H cholecalciferol (vitamin D3) 50 mcg (2,000 unit) tablet 50 mcg PO DAILY Print Language: Portuguese Instructions: Arm Fracture in Adults (ED), Wrist Fracture in Adults (ED) Referrals: Physician,Non-Staff, [Primary Care Provider] - 1 week Sebastien Fernandez MD [Physician] - 1 week Procedures ED Procedure Instructions Procedures Procedures: Procedure note: Reduction of left distal radius fracture; consent was signed by the patient's geology associate who verbalizes permission to sign. Respiratory therapy and RN was available. Timeout was called. An X was placed over the left forearm. Patient was medicated with IV Zofran, IV fluids, IV Versed and IV fentanyl. When light anesthesia was obtained traction manipulation procedure was used to reduce the distal radius fracture. While the patient was still sleeping it was placed in a volar splint. Patient was monitored continually until awake. Postreduction x-ray shows improved alignment of the distal radius fracture.
[2024-07-02] MEDS: 0.9 % SODIUM CHLORIDE 1,000 ML 1000 ML IV (22:44)
[2024-07-02] MEDS: MIDAZOLAM HCL 2 MG/2 ML VIAL 4 MG IV (22:56)
[2024-07-02] MEDS: ONDANSETRON PF 4 MG/2 ML VIAL IV (22:56)
[2024-07-02] MEDS: FENTANYL CITRATE/PF 100 MCG/2 ML VIAL 50 MCG IV (22:57)
--- NOTE | 2024-07-02 23:01 | XR_ITS ---
The [address] [address] Patient Name: ORALIA WHITFIELD MRN: [id number] date: 1980 Sex: F Assigned Patient Location: ER Current Patient Location: Accession/Order Number: [id number] Exam Date: 07/02/2024 23:12 Report Date: 07/03/2024 01:27 At the request of: NAVEEN MARKER Procedure: XR wrist LT 2V EXAM: XR wrist LT 2V HISTORY: post reduction COMPARISON: None. TECHNIQUE: Initial left wrist x-rays 07/02/2024 obtained around 7:53 PM. FINDINGS: Repeat frontal and lateral left wrist films obtained post reduction. Improved alignment of the dorsally displaced and angulated distal radial metaphyseal fracture. There remains some slight posttraumatic ulnar positive variance. Of the remaining slight posterior displacement of distal from proximal fragment estimated at approximately 5 mm. Improved alignment of distal ulnar styloid process fracture. No definitive articular involvement of fracture at distal radial surface. No significant angulation at this time following reduction. External splint placed. XR/XR wrist LT 2V IMPRESSION: Improved alignment of distal radial metaphyseal fracture and ulnar styloid process fracture. Electronically authenticated by: JENNIFER WALTERS Date: 07/03/2024 01:27
[2024-07-02 23:05] VITALS: BP 128/68; PULSE 102; O2SAT 96
[2024-07-02 23:19] VITALS: BP 128/64; PULSE 103; O2SAT 94
[2024-07-02 23:29] VITALS: BP 132/62; PULSE 104; O2SAT 94
--- NOTE | 2024-07-03 00:08 | PC.NURSE ---
i gave this patient's gericare aide teacher verbal and paper discharge orders, 2 Rx and 1 disc for this patient and school child care attendant voices yes to understanding these for this patient. at time of discharge this school child care attendant voices no concerns and this patient shows no signs of distress
== END 2024-07-03 00:11 | disposition home or self-care (01) ==
PROVIDERS: Emergency Provider Emergency Medicine
DX: S52.502A Unspecified fracture of the lower end of left radius, initial encounter for closed fracture (principal); W18.39XA Other fall on same level, initial encounter
CPT/HCPCS: 25605; 73100; 73110; 96374; 96375; 99285; J2250; J2405; J3010

== ENCOUNTER 2024-07-05 12:23 | Outpatient (OUT) | payer MEDICARE, MEDICAID, SELFPAY ==
--- OUTSIDE RECORDS SUMMARY | 2024-07-05 12:37 | XMS_ITS | CCD ---
Author Organization [place] [facility] Providers Care Transportation Dispatch Manager Name Role Phone DIAZKIERAN MC Unavailable Unavailable [...] sources) Morphine; Translations: [morphine] Drug Allergy [facility] Repository Problems Active Problems Problem Classification Problem Date Documented Da te Episodic/Chronic Developmental disorders (1 source) Unspecified intellectual disabilities; Translations: [UNSPEC INTELLECTUAL DISABILITIES] Onset: 08-24-2022 Chronic E Codes: Fall (1 source) Unspecified fall, initial encounter; Translations: [UNSPECIFIED FALL INITIAL ENCOUNTER] Onset: 08-24-2022 Episodic Other aftercare (1 source) Other lobsterman (current) drug therapy; Translations: [OTH CALL CENTER AGENT CURRENT DRUG THERAPY] Onset: 08-24-2022 Episodic Other [...] 10-08-2017 Unclassified (1 source) Head Injury / [id number]() Onset: 10-08-2017 Unclassified (1 source) Wrist Injury / 24165() Onset: 10-08-2017 Unclassified (1 source) Unspecified fracture [...] MDRD (S/P/Bld) [Vol rate/Area] mL/min/{1.73_m2} Normal >=60 [facility] Comment on above: Order Comment: Order added by Discern rule Result Comment: [facility] have implemented the eGFR calculation [...] years Performed By: #### E GFR #### [address] [address] CBC w/ Diffon 06-26-2024 Erythrocyte distribution width (RBC) [Ratio] 15.0 % High 11.6-14.8 [facility] Comment on above: Performed By: #### C BC #### [address] [address] Hematocrit (Bld) [Volume fraction] 38.5 % Normal 36.0-46.0 [facility] Comment on above: Performed By: #### C BC #### [address] [address] Hemoglobin (Bld) [Mass/Vol] 12.9 g/dL Normal 12.0-16.0 [facility] Comment on above: Performed By: #### C BC #### [address] [address] MCH (RBC) [Entitic mass] 29.7 pg Normal 27.0-35.0 [facility] Comment on above: Performed By: #### C BC #### [address] [address] MCHC 33.5 % Normal 31.0-37.0 [facility] Comment on above: Performed By: #### C BC #### [address] [address] MCV (RBC) [Entitic vol] 88.5 fL Normal 80.0-100.0 [facility] Comment on above: Performed By: #### C BC #### [address] [address] Platelet 180 x10*3/mcL Normal 150-450 [facility] Comment on above: Performed By: #### C BC #### [address] [address] Platelet mean volume (Bld) [Entitic vol] 8.4 fL Normal 6.7-10.6 [facility] Comment on above: Performed By: #### C BC #### [address] [address] RBC 4.35 x10*6/mcL Normal 3.80-5.20 [facility] Comment on above: Performed By: #### C BC #### [address] [address] WBC 6.8 x10*3/mcL Normal 4.5-11.0 [facility] Comment on above: Performed By: #### C BC #### [address] [address] CMPon 06-26-2024 Albumin [Mass/Vol] 4.2 g/dL Normal 3.2-4.9 [facility] Comment on above: Performed By: #### . Automated Diff #### [address] [address] Albumin/Globulin [Mass ratio] 1.4 {ratio} Normal 1.1-2.2 [facility] Comment on above: Performed By: #### . Automated Diff #### [address] [address] Alk Phos 63 IU/L Normal 32-91 [facility] Comment on above: Performed By: #### . Automated Diff #### [address] [address] ALT [Catalytic activity/Vol] 23 U/L Normal 14-54 [facility] Comment on above: Performed By: #### . Automated Diff #### [address] [address] AST [Catalytic activity/Vol] 22 U/L Normal 15-41 [facility] Comment on above: Performed By: #### . Automated Diff #### [address] [address] Bili Total 0.3 mg/dL Normal 0.3-1.2 [facility] Comment on above: Performed By: #### . Automated Diff #### [address] [address] Protein [Mass/Vol] 7.2 g/dL Normal 6.5-8.1 [facility] Comment on above: Performed By: #### . Automated Diff #### [address] [address] Anion gap [Moles/Vol] 11 mmol/L Normal 4-12 [facility] Comment on above: Performed By: #### . Automated Diff #### [address] [address] Calcium [Mass/Vol] 10.2 mg/dL Normal 8.5-10.3 [facility] Comment on above: Performed By: #### . Automated Diff #### [address] [address] Chloride [Moles/Vol] 102 mmol/L Normal 98-110 [facility] Comment on above: Performed By: #### . Automated Diff #### [address] [address] CO2 [Moles/Vol] 23 mmol/L Normal 22-32 [facility] Comment on above: Performed By: #### . Automated Diff #### [address] [address] Creatinine [Mass/Vol] 0.85 mg/dL Normal 0.44-1.03 [facility] Comment on above: Performed By: #### . Automated Diff #### [address] [address] Glucose [Mass/Vol] 80 mg/dL Normal 70-99 [facility] Comment on above: Performed By: #### . Automated Diff #### [address] [place] [address] Potassium [Moles/Vol] 4.8 mmol/L Normal 3.4-4.8 [facility] Comment on above: Performed By: #### . Automated Diff #### [place] [id number] Sodium [Moles/Vol] 136 mmol/L Normal 133-142 [facility] Comment on above: Performed By: #### . Automated Diff #### [place] [id number] Urea nitrogen [Mass/Vol] 22 mg/dL Normal 8-26 [facility] Comment on above: Performed By: #### . Automated Diff #### [place] [id number] Urea nitrogen/Creatini ne [Mass ratio] 25.9 mg/mg High 10.0-20.0 [facility] Comment on above: Performed By: #### . Automated Diff #### [place] [id number] Diff Autoon 06-26-2024 Baso Absolute 0.0 x10*3/mcL Normal 0.0-0.2 [facility] Comment on above: Performed By: #### . Automated Diff #### [address] [address] Basophils/100 WBC (Bld) 0.3 % Normal 0.0-1.5 [facility] Comment on above: Performed By: #### . Automated Diff #### [address] [address] Eos Absolute 0.0 x10*3/mcL Normal 0.0-0.4 [facility] Comment on above: Performed By: #### . Automated Diff #### [address] [address] Eosinophils/100 WBC (Bld) 0.6 % Normal 0.0-5.4 [facility] Comment on above: Performed By: #### . Automated Diff #### [address] [address] Lymph Absolute 2.1 x10*3/mcL Normal 1.0-4.8 [facility] Comment on above: Performed By: #### . Automated Diff #### [address] [address] Lymphocytes/100 WBC (Bld) 31.7 % Normal 27.2-40.8 [facility] Comment on above: Performed By: #### . Automated Diff #### [address] [address] [place] Absolute 0.5 x10*3/mcL Normal 0.1-1.1 [facility] Comment on above: Performed By: #### . Automated Diff #### [address] [address] Monocytes/100 WBC (Bld) 7.1 % Normal 3.7-11.9 [facility] Comment on above: Performed By: #### . Automated Diff #### [address] [address] Neutro Absolute 4.1 x10*3/mcL Normal 1.8-7.7 [facility] Comment on above: Performed By: #### . Automated Diff #### [place] [id number] Neutro Auto 60.3 % Normal 47.2-70.8 [facility] Comment on above: Performed By: #### . Automated Diff #### [place] [id number] Family Medicine Office/Clini c Noteon 06-26-2024 Family [...] inactivated 02/28 (more content not included)... Normal [facility] Hgb A1con 06-26-2024 Glucose [Mass/Vol] 108 mg/dL Normal 68-114 [facility] Comment on above: Result Comment: Math ematical Calc approx. The mean gluc equivalency of A1c Performed By: #### H BA1C #### [address] [address] Hgb A1c 5.4 % A1c Normal 4.0-5.6 [facility] Comment on above: Result Comment: Refe rence Range: 4.0 - 5.6 % Normal 5.7 - 6.4 % Pre-Diabetes > 6.5 % Diabetes Performed By: #### H BA1C #### [address] [address] Lipid Panelon 06-26-2024 Cholesterol in LDL [Mass/Vol] 88 mg/dL Normal 0-99 [facility] Comment on above: Result Comment: The equation being used in this calculation is LDL = (Chol - HDL) - (Trig / 5) The optimal value of LDL for individual patients may vary. The patient's history of Artherosclerosis and other cardiac risk factors should be considered. Performed By: #### . Automated Diff #### [address] [address] Cardiac Risk 3.1 Normal [facility] Comment on above: Result Comment: Men Women 1/2 Average 3.43 3.27 Average 4.97 4.44 2x Average 9.55 7.05 3x Average 23.99 11.04 Performed By: #### . Automated Diff #### [address] [address] Cholesterol [Mass/Vol] 166 mg/dL Normal 25-199 [facility] Comment on above: Result Comment: 0 - 17 years of age: Desirable 0-170 Borderline High 170-199 High >=200 18 years and older: Acceptable <200 Borderline High 200-239 High >=240 Performed By: #### . Automated Diff #### [address] [address] Cholesterol in HDL [Mass/Vol] 53.8 mg/dL Normal 40.0-60.0 [facility] Comment on above: Performed By: #### . Automated Diff #### [address] [address] Cholesterol in VLDL [Mass/Vol] 24 mg/dL Normal 8-39 [facility] Comment on above: Performed By: #### . Automated Diff #### [address] [address] Triglyceride [Mass/Vol] 120 mg/dL Normal [facility] Comment on above: Result Comment: 0 - 17 years of age: Trig 90 - 129 Borderline High Trig => 130 High 18 years and older: Trig 150 - 199 Borderline High Trig 200 - 499 High Trig =>500 Very High Performed By: #### . Automated Diff #### [address] [address] TSHon 06-26-2024 TSH Qn 1.17 m[IU]/L Normal 0.45-5.33 [facility] Comment on above: Result Comment: Refe rence Ranges for individuals from to 18 years of age were obtained from The Stacy [employer] Handbook (20 ed) published by [facility]. Reference Ranges for Females: Females, 1st Trimester 0.05 ? 3.7 uIU/mL Females, 2nd Trimester 0.31 ? 4.35 uIU/mL Females, 3rd Trimester 0.41 ? 5.18 uIU/mL Performed By: #### . Automated Diff #### [address] [address] Urology Office/Clinic Noteon 02-09-2024 Urology Office/Clinic Note [...] Daily, # 30 tabs, 12 Refill(s), Pharmacy: [facility] Medical Decision Making Chronic conditions NOT [...] RIVERAN-PALLAVI, Rosa James 02/09/24 11:32 EDT Normal [facility] .eGFRon 12-26-2023 GFR/1.73 sq M.predicted MDRD (S/P/Bld) [Vol rate/Area] mL/min/{1.73_m2} Normal >=60 [facility] Comment on above: Result Comment: [facility] have implemented the eGFR calculation [...] Performed By: #### . Automated Diff #### [address] [address] Basic Metabolic Profileon Anion gap [Moles/Vol] 9 mmol/L Normal 4-12 [facility] Comment on above: Performed By: #### . Automated Diff #### [address] [address] Calcium [Mass/Vol] 9.5 mg/dL Normal 8.5-10.3 [facility] Comment on above: Performed By: #### . Automated Diff #### [address] [address] Chloride [Moles/Vol] 100 mmol/L Normal 98-110 [facility] Comment on above: Performed By: #### . Automated Diff #### [address] [address] CO2 [Moles/Vol] 24 mmol/L Normal 22-32 [facility] Comment on above: Performed By: #### . Automated Diff #### [address] [address] Creatinine [Mass/Vol] 0.86 mg/dL Normal 0.44-1.03 [facility] Comment on above: Performed By: #### . Automated Diff #### [address] [address] Glucose [Mass/Vol] 82 mg/dL Normal 70-99 [facility] Comment on above: Performed By: #### . Automated Diff #### [address] [address] Potassium [Moles/Vol] 4.4 mmol/L Normal 3.4-4.8 [facility] Comment on above: Performed By: #### . Automated Diff #### [address] [address] Sodium [Moles/Vol] 133 mmol/L Normal 133-142 [facility] Comment on above: Performed By: #### . Automated Diff #### [address] [address] Urea nitrogen [Mass/Vol] 16 mg/dL Normal 8-26 [facility] Comment on above: Performed By: #### . Automated Diff #### [address] [address] Urea nitrogen/Creatini ne [Mass ratio] 18.6 mg/mg Normal 10.0-20.0 [facility] Comment on above: Performed By: #### . Automated Diff #### [address] [address] CBC w/ Diffon 12-26-2023 Erythrocyte distribution width (RBC) [Ratio] 14.9 % High 11.6-14.8 [facility] Comment on above: Performed By: #### . Automated Diff #### [place] [id number] Hematocrit (Bld) [Volume fraction] 37.8 % Normal 36.0-46.0 [facility] Comment on above: Performed By: #### . Automated Diff #### [place] [id number] Hemoglobin (Bld) [Mass/Vol] 12.4 g/dL Normal 12.0-16.0 [facility] Comment on above: Performed By: #### . Automated Diff #### [place] [id number] MCH (RBC) [Entitic mass] 30.2 pg Normal 27.0-35.0 [facility] Comment on above: Performed By: #### . Automated Diff #### [place] [address] MCHC 32.9 % Normal 31.0-37.0 [facility] Comment on above: Performed By: #### . Automated Diff #### [place] 2258040 MCV (RBC) [Entitic vol] 91.7 fL Normal 80.0-100.0 [facility] Comment on above: Performed By: #### . Automated Diff #### [place] [id number] Platelet 149 x10*3/mcL Low 150-450 [facility] Comment on above: Performed By: #### . Automated Diff #### [address] [address] Platelet mean volume (Bld) [Entitic vol] 8.7 fL Normal 6.7-10.6 [facility] Comment on above: Performed By: #### . Automated Diff #### [address] [address] RBC 4.12 x10*6/mcL Normal 3.80-5.20 [facility] Comment on above: Performed By: #### . Automated Diff #### [address] [address] WBC 6.0 x10*3/mcL Normal 4.5-11.0 [facility] Comment on above: Performed By: #### . Automated Diff #### [address] [address] Diff Autoon 12-26-2023 Baso Absolute 0.0 x10*3/mcL Normal 0.0-0.2 [facility] Comment on above: Performed By: #### . Automated Diff #### [address] [address] Basophils/100 WBC (Bld) 0.5 % Normal 0.0-1.5 [facility] Comment on above: Performed By: #### . Automated Diff #### [address] [address] Eos Absolute 0.1 x10*3/mcL Normal 0.0-0.4 [facility] Comment on above: Performed By: #### . Automated Diff #### [address] [address] Eosinophils/100 WBC (Bld) 2.4 % Normal 0.0-5.4 [facility] Comment on above: Performed By: #### . Automated Diff #### [address] [address] Lymph Absolute 2.4 x10*3/mcL Normal 1.0-4.8 [facility] Comment on above: Performed By: #### . Automated Diff #### [address] [address] Lymphocytes/100 WBC (Bld) 40.2 % Normal 27.2-40.8 [facility] Comment on above: Performed By: #### . Automated Diff #### [address] [address] [place] Absolute 0.5 x10*3/mcL Normal 0.1-1.1 [facility] Comment on above: Performed By: #### . Automated Diff #### [address] [address] Monocytes/100 WBC (Bld) 7.8 % Normal 3.7-11.9 [facility] Comment on above: Performed By: #### . Automated Diff #### [address] [address] Neutro Absolute 2.9 x10*3/mcL Normal 1.8-7.7 [facility] Comment on above: Performed By: #### . Automated Diff #### [address] [address] Neutro Auto 49.1 % Normal 47.2-70.8 [facility] Comment on above: Performed By: #### . Automated Diff #### [address] [address] Hep Func Panelon 12-26-2023 Albumin [Mass/Vol] 4.4 g/dL Normal 3.2-4.9 [facility] Comment on above: Performed By: #### L IVER #### [address] [address] Alk Phos 58 IU/L Normal 32-91 [facility] Comment on above: Performed By: #### L IVER #### [address] [address] ALT [Catalytic activity/Vol] 36 U/L Normal 14-54 [facility] Comment on above: Performed By: #### L IVER #### [address] [address] AST [Catalytic activity/Vol] 27 U/L Normal 15-41 [facility] Comment on above: Performed By: #### L IVER #### [address] [address] Bili Direct 0.1 mg/dL Normal 0.1-0.5 [facility] Comment on above: Performed By: #### L IVER #### [address] [address] Bili Indirect 0.4 mg/dL Normal 0.0-1.0 [facility] Comment on above: Performed By: #### L IVER #### [address] [address] Bili Total 0.5 mg/dL Normal 0.3-1.2 [facility] Comment on above: Performed By: #### L IVER #### [address] [address] Protein [Mass/Vol] 7.8 g/dL Normal 6.5-8.1 [facility] Comment on above: Performed By: #### L IVER #### [address] [address] TSHon 12-26-2023 TSH Qn 2.13 m[IU]/L Normal 0.45-5.33 [facility] Comment on above: Result Comment: Refe rence Ranges for individuals from to 18 years of age were obtained from The [employer]acy [employer] Handbook (20 ed) published by [facility]. Reference Ranges for Females: Females, 1st Trimester 0.05 ? 3.7 uIU/mL Females, 2nd Trimester 0.31 ? 4.35 uIU/mL Females, 3rd Trimester 0.41 ? 5.18 uIU/mL Performed By: #### T SH #### [address] [address] Valproicon 12-26-2023 Valproic Acid Level 102.3 mcg/mL High 50.0-100.0 [facility] Comment on above: Performed By: #### V AL #### [address] [address] Urology Office/Clinic Noteon 11-11-2023 Urology Office/Clinic Note [...] : deferred recent pelvic exam performed by HOSPITAL PERSONNEL DIRECTOR, negative findings per their report Additional Vitals [...] chew, # 30 tabs, 0 Refill(s), Pharmacy: [facility] Medical Decision Making Chronic conditions NOT [...] See Instructio (more content not included)... Normal [facility] Gynecology Office/Clinic Not black 09-01-2023 Gynecology Office/Clinic Note Chief Complaint UI, Hx hyst 2006. History of Present Illness Here with Collator non verbal hyst with ovaries removed. Collator reports she is sedentary start UI again after trip to Dad[facility] and [facility]. Macrobid daily Review of Systems Cough: No [...] symptoms after ATB and re training bladder. pet caretaker believes it was due to change in [...] Daily, # 90 caps, 3 Refill(s), Pharmacy: [facility] cephalexin, 1 caps, Oral, q12hr, X 7 days, # 14 caps, 0 Refill(s), 09/08/23 10:44:00 EDT, Pharmacy: [facility] nitrofurantoin, 1 caps, Oral, Daily, # 90 caps, 3 Refill(s), Pharmacy: [facility] Medical Decision Making Chronic conditions NOT [...] in house (more content not included)... Normal [facility] FOOT LEFT 3 [facility] 02-03-2021 FOOT LEFT [address] [facility] Department of Radiology [address] [place] [phone] == Patient Name: ORALIA WHITFIELD : 1980 Sex: F Age: Race: White Pt. Location: Patient Status: O Ordered Date: 02/03/2021 11:20:00 AM Completed Date: 02/03/2021 11:32 AM Requesting Provider: LA MCKINNON Attending Provider: LA MCKINNON Report Copy To: Signs & Symptoms: S92.345A Nondisp fx of fourth metatarsal bone, left foot, init I10 History: Comments: Evaluate Exam: FOOT LEFT 3 [facility] == FOOT LEFT 3 S 02/03/2021 [...] necks. Electronically signed: Devon Allan. Transcribed by: [email or web address], User Resident: Electronically Signed by: DEVON ALLAN @ 02/03/2021 12:49 PM Normal [facility] Comment on above: Order Comment: Evalu ate FOOT LEFT 3 [facility] 01-06-2021 FOOT LEFT [address] [facility] Department of Radiology [address] [place] [phone] == Patient Name: ORALIA WHITFIELD : 1980 Sex: F Age: Race: White Pt. Location: 84 Patient Status: O Ordered Date: 01/06/2021 9:45:00 AM Completed Date: 01/06/2021 09:49 AM Requesting Provider: LA MCKINNON Attending Provider: LA MCKINNON Report Copy To: Signs & Symptoms: S92.345A Nondisp fx of fourth metatarsal bone, left foot, init I10 History: Comments: evalaute Exam: FOOT LEFT 3 [facility] == FOOT LEFT 3 S 01/06/2021 [...] report. Electronically signed: Lenny Law. Transcribed by: [email or web address], User Resident: AAMIR LENTZ Electronically Signed by: LENNY LAW @ 01/06/2021 12:04 PM I personally read this/these film(s) with this resident Normal [facility] Comment on above: Order Comment: nacho wu FOOT LEFT 3 [facility] 12-16-2020 FOOT LEFT [address] [facility] Department of Radiology [address] [place] [phone] == Patient Name: ORALIA WHITFIELD : [...] fractures. Electronically signed: Lenny Law. Transcribed by: [email or web address], User Resident: Electronically Signed by: LENNY LAW @ 12/17/2020 10:25 AM Normal [facility] Comment on above: Order Comment: Evalu ate Urine Cultureon 12-02-2020 Bacteria identified Cx Nom (U) Final report Critically abnormal . [facility] Comment on above: Order Comment: Reaso n for Exam Urge incontinence of urine Performed By: #### U RINE CULTURE #### [facility] , Ur Cult Antimic Suceptibility Normal . [facility] Comment on above: Order Comment: Reaso n [...] Tobramycin S Trimethoprim/Sulfa S Performed at: - [facility] [id number] Manager User Interface: Kodak Tracy PhD, Phone: [phone] PERFORMED BY: [place] [address] PATHOLOGIST EARLY INTERVENTIONIST ROSA ISELA GORE M.D. Performed By: #### U RINE CULTURE #### [facility] , Urine Culture, Res 1 Escherichia coli Critically abnormal . [facility] Comment on above: Order Comment: Reaso n [...] 3V*on 021 XR foot LT min 3V* [facility] [address] XRay Report Signed Patient: Oralia Whitfield MR#: [id number] : 1980 Acct:[id number] Age/Sex: 40 / F ADM Date: 12/02/20 Loc: XDUCLY Room: Type: [facility] Attending Dr: Lucero DEGROOT Ordering Provider: LUCERO [...] Modesto Jones M.D.12/02/2020 5:14 PM Dictation Location: [place] [address] Transcribed By: [facility] 12/02/201713 Dictated By: Modesto Jones DO 12/02/201706 Signed By: 12/02/201713 [facility] Urine Cultureon 09-05-2020 Bacteria identified Cx Nom (U) Reason for Exam Dysuria Urine Reason for Exam: Dysuria : Urine ORGANISM: Escherichia coli (O:ESCCOL) [place] Count >100,000 Aerobic LYNNE Charge (NUC86) - [...] RESISTANT TO ALL B-LACTAM DRUGS. PERFORMED BY: [address] [place] [address] PATHOLOGIST EARLY INTERVENTIONIST ROSA ISELA GORE M.D. [facility] Comment on above: Performed By: #### C UU #### [facility] [address] [place] [address] [facility] XR WRIST RIGHT MINIMUM 3 VIE WSon 10-09-2017 XR WRIST RIGHT MINIMUM 3 VIEWS CLINICAL: Status post fall. Fracture risk. Status post attempted reduction.COMPARISON: Earlier radiographs TECHNIQUE: 3 views of the right wrist FINDINGS: There is attempted reduction with persistent mal- alignment of the fracture site..IMPRESSION:Persist ent displacement of the fracturesWorkstation ID:[id number] fell. Post reduction. Patient has autism and is MRDD. Tech held for films best images possible. Normal [facility] XR WRIST RIGHT MINIMUM 3 VIEWS CLINICAL: Right wrist fracture, post reduction.COMPARISON: Earlier radiographs TECHNIQUE: 3 views of the right wrist FINDINGS: There is interval reduction of the distal radius fracture. There is improved alignment..IMPRESSION:Po st reductionWorkstation ID:[id number] attempt post reduction of right wrist fx. Held for images by tech. Normal [facility] CT HEAD WITHOUT CONTRASTon 0 10-08-2017 [...] lesions. IMPRESSION: No acute intracranial injury detected.Workstation ID:[id number] ambulated to triage desk with mom. 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 Has head & R wrist inj. Mom denies LOC. Pt has abrasions above R eyebrow, & under R eye, is bleeding from her nose, & has a deformity to her R wrist. Mom said pt is autistic, and MRDD. Mx: noneSx: noneNoncontrastabg-c Normal [facility] CT MAXILLOFACIAL / SINUS WIT HOUT CONTRASTon [...] fracture seen IMPRESSION:Negative for facial fracture. Workstation ID:[id number] ambulated to triage desk with mom. 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 Has head & R wrist inj. Mom denies LOC. Pt has abrasions above R eyebrow, & under R eye, is bleeding from her nose, & has a deformity to her R wrist. Mom said pt is autistic, and MRDD. Mx: noneSx: noneNoncontrastabg-c [facility] CT SPINE CERVICAL WITHOUT CO [...] of cervical lordosis.IMPRESSION:No acute osseous injury seen.Workstation ID:[id number] ambulated to triage desk with mom. 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 Has head & R wrist inj. Mom denies LOC. Pt has abrasions above R eyebrow, & under R eye, is bleeding from her nose, & has a deformity to her R wrist. Mom said pt is autistic, and MRDD. Mx: noneSx: noneNoncontrastabg-c [facility] XR CHEST PA OR AP 1 VIEW (PO RTABLE)on 10-08-2017 XR CHEST PA OR AP 1 VIEW (PORTABLE) CLINICAL: Fell out of a truck.COMPARISON: noneTECHNIQUE: AP portable chestFINDINGS:The lungs are clear. Pulmonary vascularity is normal.IMPRESSION: No acute lung lesion seen.Workstation ID:[id number] stated patient fell out of a picking machine operator truck while holding her lunch. Right wrist injury, obvious deformity. Mom denies LOC. Mom said pt is autistic, and MRDD. Poor historian. Normal [facility] XR PELVIS 1 OR 2 VIEWSon XR PELVIS 1 OR 2 VIEWS CLINICAL: Patient fell out of a truck.COMPARISON: NoneTECHNIQUE: AP pelvisFINDINGS:The osseous pelvis is intact. Hip alignment is anatomic, and the sacroiliac joints are unremarkable. IMPRESSION: Unremarkable AP pelvis x-rays.Workstation ID:[id number] stated patient fell out of a picking machine operator truck while holding her lunch. Right wrist injury, obvious deformity. Mom denies LOC. Mom said pt is autistic, and MRDD. Poor historian. Normal [facility] XR WRIST RIGHT MINIMUM 3 VIE WSon 10-08-2017 XR WRIST RIGHT MINIMUM 3 VIEWS CLINICAL: Fell out of a truck. Right wrist pain and injuryCOMPARISON: None TECHNIQUE: 3 views of the right wrist FINDINGS: There is comminuted displaced fracture of the distal radius and an avulsion fracture of the ulnar styloid..IMPRESSION:Frac ture distal radius and ulna styloid processWorkstation ID:[id number] stated patient fell out of a picking machine operator truck while holding her lunch. Right wrist injury, obvious deformity. Mom denies LOC. Mom said pt is autistic, and MRDD. Poor historian. Normal [facility] Encounters Encounter Date Encounter Type Care Provider Facility Start: 06-26-2024 End: 06-26-2024 ambulatory Rashi Gruber MD Facility:[facility] Start: 05-31-2024 End: 05-31-2024 ambulatory Rashi Gruber MD Facility:[facility] Start: 04-30-2024 End: 04-30-2024 ambulatory Rashi Gruber MD Facility:[facility] Start: 03-27-2024 End: 03-27-2024 ambulatory Rashi Gruber MD Facility:[facility] Start: 03-19-2024 End: 03-19-2024 ambulatory Wayne Coronel MD Facility:[facility] Start: 02-09-2024 End: 02-09-2024 ambulatory Rosa Saenz APRN-SOLDERER ELECTRONIC Facility:[facility] Start: 2024 End: 2024 ambulatory Wayne Coronel MD Facility:[facility] Start: 01-02-2024 End: 01-02-2024 ambulatory Wayne Coronel MD Facility:[facility] Start: 12-26-2023 End: 12-26-2023 ambulatory Wayne Coronel MD Facility:[facility] Start: 11-14-2023 End: 11-14-2023 ambulatory Wayne Coronel MD Facility:[facility] Start: 11-11-2023 End: 11-11-2023 ambulatory Rosa Saenz SAP BOBJ DEVELOPER-[employer]RON[employer] Facility:[facility] Start: 10-27-2023 End: 10-27-2023 ambulatory Roxana Blanco SAP BOBJ DEVELOPER-[employer] Facility:[facility] Start: 10-05-2023 End: 10-05-2023 ambulatory Wayen Coronel MD Facility:[facility] Start: 09-01-2023 End: 09-01-2023 ambulatory Roxana Blanco SAP BOBJ DEVELOPER-[employer] Facility:[facility] Start: 08-31-2023 End: 08-31-2023 ambulatory Wayne Coronel MD Facility:[facility] Start: 08-02-2023 End: 08-02-2023 ambulatory Wayne Coronel MD Facility:[facility] Start: 08-23-2022 End: 08-23-2022 ambulatory NICKIE DESHPANDE Facility: Start: 10-08-2017 End: 10-08-2017 Emergency department patient visit KIERAN DIAZ [facility] Plan of Treatment Date Care Activity Detail Author Start: 09-19-2024 ambulatory Ambulatory Facility:[facility] Payers Date Payer Category Payer Medicaid 2021 Medicare 1980 Unknown [id number] .[id number] [id number] 1980 Unknown [id number] 2.. [id number] 1980 Unknown [id number] .. 840.1.688408.3.579.2.196 1980 Unknown [id number] 2. 840.1.838544.3.579.2. 1980 Unknown [id number] 2.16 840.1.704341.3.579.2. 1982 Unknown [id number] 2. 840.1.654668.3.579.2. 1982 Unknown [id number] 2. 840.1.986236.3.579.2. 1982 Unknown [id number] 2. 840.1.771145.3.579.2. 1982 Unknown [id number] 2. 840.1.271911.3.579.2. 1982 Unknown [id number] 2.0.1.617925.3.579.2. 1982 Unknown [id number] 2. 840.1.505424.3.579.2. 1982 Unknown [id number] 2.0.1.620122.3.579.2. 1982 Unknown [id number] 2. 840.1.128616.3.579.2. 1982 Unknown [id number] 20.1.613583.3.579.2. 1982 Unknown [id number] 2. 840.1.751910.3.579.2. 1982 Unknown [id number] 2. 840.1.614393.3.579.2. 1982 Unknown [id number] 2. 840.1.070977.3.579.2. 1982 Unknown [id number] 2. 840.1.771561.3.579.2. 1982 Unknown [id number] 2. 840.1.205281.3.579.2. 1982 Unknown [id number] 2.16. 840.1.542870.3.579.2. 1982 Unknown [id number] 2.16. 840.1.050170.3.579.2.196 1980 Unknown [id number] 2.16. 840.1.188241.3.579.2. 1980 Unknown [id number] 2.16. 840.1.258944.3.579.2. 1980 Unknown [id number] 2.16. 840.1.590441.3.579.2.196 1957 Medicaid [id number] 1957 Medicare [id number] Medicare [id number] Clinical Note 08-23-2022 Note Date & Type [...] by: DELMY CHÁVEZ Date: 2022-08-23 12:45 [facility] Clinical Note 08-23-2022 Note Date [...] by: DELMY CHÁVEZ Date: 2022-08-23 12:45 [facility] Summary Purpose Family History No [...] DATE CREATED AUTHOR AUTHOR'S ORGANIZ ATION 02/04/2021 [facility] DATE CREATED AUTHOR AUTHOR'S ORGANIZ ATION 07/15/2021 [facility] DATE CREATED AUTHOR AUTHOR'S ORGANIZ ATION 08/24/2022 [facility] DATE CREATED AUTHOR AUTHOR'S ORGANIZ ATION 06/27/2024 [facility] FOR RECORDS PERTAINING TO PATIENTS WHO [...] BE BASED ON THE PRIMARY CLINICAL RECORDS. [facility] [employer] [facility]. provides no warranty or guarantee of the accuracy or completeness of information in this document.
--- NOTE | 2024-07-05 16:59 | P.GSHP_ITS ---
History of Present Illness History of Present Illness Chief complaint: left wrist fx Narrative: Ms. Anabell powell is a 44-year-old female who presents to presurgical testing after fracture to the left distal radius she is scheduled for open reduction internal fixation of the left distal radius with Dr. Fernandez on 07/09/2024. She presents today in a splint and reports to her caregiver discomfort at times for which she had been taking Motrin but moving forward will be taking Tylenol for discomfort Review of Systems ROS Narrative REVIEW OF SYSTEMS: Negative except as stated in HPI, ten or more systems reviewed. Constitutional: No fever, chills, weakness ENT: No sore throat or epistaxis Cardiovascular: No edema, chest pain, palpitations, or activity intolerance Respiratory: No shortness of breath, cough, or wheezing Musculoskeletal: No intermittent pain to left wrist no complaints of swelling Gastrointestinal: No abdominal pain, constipation, diarrhea, or vomiting Genitourinary: No dysuria or hematuria Neurological: No numbness, tingling, weakness, or headache Psychiatric: No mood changes PFSH PFS Medical History (Updated 07/05/24 @ 13:43 by Kecia Negron) Abrasion ?T14.8XXA - Other injury of unspecified body region, initial encounter (ICD- 10) Contusion of left hip and thigh ?S70.02XA - Contusion of left hip, initial encounter (ICD-10) ?S70.12XA - Contusion of left thigh, initial encounter (ICD-10) Fracture of clavicle, left, closed ?S42.002A - Fracture of unspecified part of left clavicle, initial encounter for closed fracture (ICD-10) Contusion of rib ?S20.219A - Contusion of unspecified front wall of thorax, initial encounter (ICD-10) Wrist fracture, right ?S62.101A - Fracture of unspecified carpal bone, right wrist, initial encounter for closed fracture (ICD-10) Intermittent explosive disorder in adult ?F63.81 - Intermittent explosive disorder (ICD-10) Autism ?F84.0 - Autistic disorder (ICD-10) ADHD ?F90.9 - Attention-deficit hyperactivity disorder, unspecified type (ICD-10) Seizures ?R56.9 - Unspecified convulsions (ICD-10) Urinary tract infection ?N39.0 - Urinary tract infection, site not specified (ICD-10) Seasonal allergies ?J30.2 - Other seasonal allergic rhinitis (ICD-10) Surgical History (Updated 07/05/24 @ 16:57 by Kecia Negron) History of surgery on right wrist ?Z98.890 - Other specified postprocedural states (ICD-10) History of hysterectomy ?Z90.710 - Acquired absence of both cervix and uterus (ICD-10) Family History (Updated 07/05/24 @ 12:54 by Kecia Negron) Other Family history of diabetes mellitus Social History (Updated 07/05/24 @ 12:51 by Kecia Negron) Within the past year, how often did you have a drink containing alcohol: never Score interpretation: A score less than 3 is consistent with normal alcohol consumption. Smoking status: Never smoker Non-prescribed substance use: denies use Previous occupational history: disabled Meds Home Medications and Allergies Home Medications ?Medication ?Instructions ?Recorded ?Confirmed ?Type benztropine 2 mg tablet 2 mg PO DAILY 01/13/23 07/05/24 History divalproex 500 mg tablet,extended 1,000 mg PO BEDTIME 01/13/23 07/05/24 History release 24 hr fluvoxamine 100 mg tablet 100 mg PO DAILY 01/13/23 07/05/24 History loratadine 10 mg tablet 10 mg PO Q24H 01/13/23 07/05/24 History melatonin 5 mg tablet 10 mg PO BEDTIME 01/13/23 07/05/24 History nitrofurantoin macrocrystal 100 mg 100 mg PO Q24H 01/13/23 07/05/24 History capsule paliperidone 6 mg tablet,extended 12 mg PO Q24H 01/13/23 07/05/24 History release 24 hr Lactobacillus rhamnosus-Bifidobac. 1 cap PO DAILY 07/05/24 07/05/24 History animalis 3 billion cell capsule ([employer]) acetaminophen 325 mg capsule 650 mg PO Q4H PRN pain 07/05/24 07/05/24 History chlorpromazine 25 mg tablet 25 mg PO Q8H 07/05/24 07/05/24 History cholecalciferol (vitamin D3) 50 50 mcg PO DAILY 07/05/24 07/05/24 History mcg (2,000 unit) tablet (Vitamin D3) clonazepam 0.5 mg tablet 0.5 mg PO Q12H 07/05/24 07/05/24 History hydroxyzine HCl 25 mg tablet 25 mg PO Q8H 07/05/24 07/05/24 History ibuprofen 600 mg tablet (IBU) 600 mg PO QID 07/05/24 07/05/24 History mirabegron 50 mg tablet,extended 50 mg PO DAILY 07/05/24 07/05/24 History release 24 hr (Myrbetriq) omeprazole 40 mg capsule,delayed 40 mg PO DAILY 07/05/24 07/05/24 History release Allergies Allergy/AdvReac Type Severity Reaction Status Date / Time morphine Allergy Unknown Abdominal Verified 07/02/24 19:31 Pain Milk Containing Products AdvReac Unknown Abdominal Verified 07/02/24 19:31 (Dairy) Pain Exam Narrative Exam Narrative: Constitutional: Awake, alert, comfortable, well-appearing, nontoxic, interactive, vital signs as charted, verbal with this patient with notable aphasia Head: Normocephalic, atraumatic Eyes: Conjunctiva and lids normal to inspection, pupils normal ENT: Tympanic membranes pearly coy on the left and notable cerumen impaction on right, nonerythematous, noninjected, naris patent, posterior oropharynx clear, oral mucosa moist Neck: Supple, normal appearance, normal range of motion, no meningeal signs, no lymphadenopathy Respiratory: No respiratory distress, breath sounds clear Cardiovascular: Regular rate and rhythm, strong and regular heart tones Abdomen: Nontender, normal bowel sounds, soft, no CVA tenderness Musculoskeletal: Mild antalgic gait, no swelling or edema, left wrist splint Skin: No rashes or induration, no lesions, only visible skin inspected Neuro: No neurological deficits, normal sensation Psychiatric: Oriented ?3, normal affect Assessment and Plan Assessment and Plan (1) Fracture of left distal radius: Plan Plan open reduction and internal fixation of left distal radius scheduled with Dr. Fernandez on July 09, 2024
== END 2024-07-05 12:24 | disposition home or self-care (01) ==
LOC: PST 12:24
PROVIDERS: Visit Provider Orthopaedic Surgery
DX: Z01.818 Encounter for other preprocedural examination (principal); S59.292A Other physeal fracture of lower end of radius, left arm, initial encounter for closed fracture
CPT/HCPCS: G0463

== ENCOUNTER 2024-07-09 10:57 | Day surgery (SDC) | payer MEDICARE, MEDICAID, SELFPAY ==
[2024-07-05 12:51] VITALS: BP 108/72; PULSE 107; TEMP 36.3; O2SAT 98; BMI 28.8
[2024-07-09] VITALS (8 sets, daily range): BP systolic 130–173; BP diastolic 78–114; PULSE 62–108; TEMP 36.1–36.2; O2SAT 92–99; BMI 28.8
--- NOTE | 2024-07-09 | FL_ITS ---
[place] [id number] Patient Name: ORALIA WHITFIELD MRN: [id number] date: 1980 Sex: F Assigned Patient Location: SURGOUT Current Patient Location: [facility] Accession/Order Number: [id number] Exam Date: 07/09/2024 12:45 Report Date: 07/13/2024 08:21 At the request of: DELMY JACINTO Procedure: FL fluoroscopy <1hr NON-READ EXAM: FL fluoroscopy <1hr NON-READ HISTORY: TECHNIQUE: FINDINGS: Please see Operative Report. Electronically authenticated by: RADIOLOGIST NO Date: 07/13/2024 08:21
[2024-07-09 11:07] LABS: Basophils Percent Auto 0.1 % (0.2-2.0); Eosinophils Percent Auto 0.5 % (0.9-7.0); Hematocrit 37.1 % (36.0-48.0); Hemoglobin 12.4 g/dL (12.0-16.0); Immature Granulocytes Abs Auto 0.01 10^3/uL (0.00-0.03); Immature Granulocytes Pct Auto 0.1 % (0.0-0.5); Lymphocytes Absolute Auto 2.2 10^3/uL (1.2-3.8); Mean Corpuscular HGB Conc 33.4 g/dL (29.9-35.2); Mean Corpuscular Hemoglobin 29.5 pg (26.7-34.0); Mean Corpuscular Volume 88.1 fL (81.0-99.0); Mean Platelet Volume 9.3 fL (9.5-13.5); Monocytes Absolute Auto 0.6 10^3/uL (0.3-0.8); Monocytes Percent Auto 7.6 % (1.7-12.0); Neutrophils Absolute Auto 4.9 10^3/uL (1.4-6.5); Neutrophils Percent Auto 63.7 % (43.0-75.0); Platelet Count 200 10^3/uL (150-450); Red Blood Count 4.21 10^6/uL (4.20-5.40); Red Cell Distribution Width 14.1 % (11.0-15.0); White Blood Count 7.7 10^3/uL (4.0-11.0)
--- OUTSIDE RECORDS SUMMARY | 2024-07-09 11:15 | XMS_ITS | CCD ---
Author Organization [place] [facility] Team Providers Care Electronics Engineer Name Role Phone DIAZKIERAN MC Unavailable Unavailable [...] Rashi Gruber MD Primary Care Unavailable Rashi Gurber MD Primary Care Unavailable Berna ANDRES, Wayne Galvan Attending Unavailable Berna ANRDES, Wayne Galvan Attending Unavailable Rashi Gruber MD Primary Care Unavailable Berna ANDRES, Wayne Galvan Attending Unavailable Yasmani ADNRES, Rashi Nugent Primary Care Unavailable Berna ANDRES, [...] sources) Morphine; Translations: [morphine] Drug Allergy 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; Translations: [OTH [facility]FP CURRENT DRUG THERAPY] Onset: 08-24-2022 Episodic Other [...] 10-08-2017 Unclassified (1 source) Head Injury / [id number]() Onset: 10-08-2017 Unclassified (1 source) Wrist Injury / [id number]() Onset: 10-08-2017 Unclassified (1 source) Unspecified fracture [...] MDRD (S/P/Bld) [Vol rate/Area] mL/min/{1.73_m2} Normal >=60 [facility] Comment on above: Order Comment: Order added by Discern rule Result Comment: [facility] Laboratories have implemented the eGFR [...] years Performed By: #### E GFR #### [address] [address] CBC w/ Diffon 06-26-2024 Erythrocyte distribution width (RBC) [Ratio] 15.0 % High 11.6-14.8 [facility] Comment on above: Performed By: #### C BC #### [address] [address] Hematocrit (Bld) [Volume fraction] 38.5 % Normal 36.0-46.0 [facility] Comment on above: Performed By: #### C BC #### [address] [address] Hemoglobin (Bld) [Mass/Vol] 12.9 g/dL Normal 12.0-16.0 [facility] Comment on above: Performed By: #### C BC #### [address] [address] MCH (RBC) [Entitic mass] 29.7 pg Normal 27.0-35.0 [facility] Comment on above: Performed By: #### C BC #### [address] [address] MCHC 33.5 % Normal 31.0-37.0 [facility] Comment on above: Performed By: #### C BC #### [address] [address] MCV (RBC) [Entitic vol] 88.5 fL Normal 80.0-100.0 [facility] Comment on above: Performed By: #### C BC #### [address] [address] Platelet 180 x10*3/mcL Normal 150-450 [facility] Comment on above: Performed By: #### C BC #### [address] [address] Platelet mean volume (Bld) [Entitic vol] 8.4 fL Normal 6.7-10.6 [facility] Comment on above: Performed By: #### C BC #### [address] [address] RBC 4.35 x10*6/mcL Normal 3.80-5.20 [facility] Comment on above: Performed By: #### C BC #### [address] [address] WBC 6.8 x10*3/mcL Normal 4.5-11.0 [facility] Comment on above: Performed By: #### C BC #### [address] [address] CMPon 06-26-2024 Albumin [Mass/Vol] 4.2 g/dL Normal 3.2-4.9 [facility] Comment on above: Performed By: #### . Automated Diff #### [address] [address] Albumin/Globulin [Mass ratio] 1.4 {ratio} Normal 1.1-2.2 [facility] Comment on above: Performed By: #### . Automated Diff #### [address] [address] Alk Phos 63 IU/L Normal 32-91 [facility] Comment on above: Performed By: #### . Automated Diff #### [address] [address] ALT [Catalytic activity/Vol] 23 U/L Normal 14-54 [facility] Comment on above: Performed By: #### . Automated Diff #### [address] [address] AST [Catalytic activity/Vol] 22 U/L Normal 15-41 [facility] Comment on above: Performed By: #### . Automated Diff #### [address] [address] Bili Total 0.3 mg/dL Normal 0.3-1.2 [facility] Comment on above: Performed By: #### . Automated Diff #### [address] [address] Protein [Mass/Vol] 7.2 g/dL Normal 6.5-8.1 [facility] Comment on above: Performed By: #### . Automated Diff #### [address] [address] Anion gap [Moles/Vol] 11 mmol/L Normal 4-12 [facility] Comment on above: Performed By: #### . Automated Diff #### [address] [address] Calcium [Mass/Vol] 10.2 mg/dL Normal 8.5-10.3 [facility] Comment on above: Performed By: #### . Automated Diff #### [address] [address] Chloride [Moles/Vol] 102 mmol/L Normal 98-110 [facility] Comment on above: Performed By: #### . Automated Diff #### [address] [address] CO2 [Moles/Vol] 23 mmol/L Normal 22-32 [facility] Comment on above: Performed By: #### . Automated Diff #### [address] [address] Creatinine [Mass/Vol] 0.85 mg/dL Normal 0.44-1.03 [facility] Comment on above: Performed By: #### . Automated Diff #### [address] [address] Glucose [Mass/Vol] 80 mg/dL Normal 70-99 [facility] Comment on above: Performed By: #### . Automated Diff #### [address] [place] [address] Potassium [Moles/Vol] 4.8 mmol/L Normal 3.4-4.8 [facility] Comment on above: Performed By: #### . Automated Diff #### [place] [id number] Sodium [Moles/Vol] 136 mmol/L Normal 133-142 [facility] Comment on above: Performed By: #### . Automated Diff #### [place] [id number] Urea nitrogen [Mass/Vol] 22 mg/dL Normal 8-26 [facility] Comment on above: Performed By: #### . Automated Diff #### [place] [id number] Urea nitrogen/Creatini ne [Mass ratio] 25.9 mg/mg High 10.0-20.0 [facility] Comment on above: Performed By: #### . Automated Diff #### [place] [id number] Diff Autoon 06-26-2024 Baso Absolute 0.0 x10*3/mcL Normal 0.0-0.2 [facility] Comment on above: Performed By: #### . Automated Diff #### [address] [address] Basophils/100 WBC (Bld) 0.3 % Normal 0.0-1.5 [facility] Comment on above: Performed By: #### . Automated Diff #### [address] [address] Eos Absolute 0.0 x10*3/mcL Normal 0.0-0.4 [facility] Comment on above: Performed By: #### . Automated Diff #### [address] [address] Eosinophils/100 WBC (Bld) 0.6 % Normal 0.0-5.4 [facility] Comment on above: Performed By: #### . Automated Diff #### [address] [address] Lymph Absolute 2.1 x10*3/mcL Normal 1.0-4.8 [facility] Comment on above: Performed By: #### . Automated Diff #### [address] [address] Lymphocytes/100 WBC (Bld) 31.7 % Normal 27.2-40.8 [facility] Comment on above: Performed By: #### . Automated Diff #### [address] [address] [place] Absolute 0.5 x10*3/mcL Normal 0.1-1.1 [facility] Comment on above: Performed By: #### . Automated Diff #### [address] [address] Monocytes/100 WBC (Bld) 7.1 % Normal 3.7-11.9 [facility] Comment on above: Performed By: #### . Automated Diff #### [address] [address] Neutro Absolute 4.1 x10*3/mcL Normal 1.8-7.[address] [facility] Comment on above: Performed By: #### . Automated Diff #### [place] [id number] Neutro Auto 60.3 % Normal 47.2-70.8 [facility] Comment on above: Performed By: #### . Automated Diff #### [place] [address] Family Medicine Office/Clini c Noteon 06-26-2024 Family [...] inactivated 02/28 (more content not included)... Normal [facility] Hgb A1con 06-26-2024 Glucose [Mass/Vol] 108 mg/dL Normal 68-114 [facility] Comment on above: Result Comment: Math ematical Calc approx. The mean gluc equivalency of A1c Performed By: #### H BA1C #### [address] [address] Hgb A1c 5.4 % A1c Normal 4.0-5.6 [facility] Comment on above: Result Comment: Refe rence Range: 4.0 - 5.6 % Normal 5.7 - 6.4 % Pre-Diabetes > 6.5 % Diabetes Performed By: #### H BA1C #### [address] [address] Lipid Panelon 06-26-2024 Cholesterol in LDL [Mass/Vol] 88 mg/dL Normal 0-99 [facility] Comment on above: Result Comment: The equation being used in this calculation is LDL = (Chol - HDL) - (Trig / 5) The optimal value of LDL for individual patients may vary. The patient's history of Artherosclerosis and other cardiac risk factors should be considered. Performed By: #### . Automated Diff #### [address] [address] Cardiac Risk 3.1 Normal [facility] Comment on above: Result Comment: Men Women 1/2 Average 3.43 3.27 Average 4.97 4.44 2x Average 9.55 7.05 3x Average 23.99 11.04 Performed By: #### . Automated Diff #### [address] [address] Cholesterol [Mass/Vol] 166 mg/dL Normal 25-199 [facility] Comment on above: Result Comment: 0 - 17 years of age: Desirable 0-170 Borderline High 170-199 High >=200 18 years and older: Acceptable <200 Borderline High 200-239 High >=240 Performed By: #### . Automated Diff #### [address] [address] Cholesterol in HDL [Mass/Vol] 53.8 mg/dL Normal 40.0-60.0 [facility] Comment on above: Performed By: #### . Automated Diff #### [address] [address] Cholesterol in VLDL [Mass/Vol] 24 mg/dL Normal 8-39 [facility] Comment on above: Performed By: #### . Automated Diff #### [address] [address] Triglyceride [Mass/Vol] 120 mg/dL Normal [facility] Comment on above: Result Comment: 0 - 17 years of age: Trig 90 - 129 Borderline High Trig => 130 High 18 years and older: Trig 150 - 199 Borderline High Trig 200 - 499 High Trig =>500 Very High Performed By: #### . Automated Diff #### [address] [address] TSHon 06-26-2024 TSH Qn 1.17 m[IU]/L Normal 0.45-5.33 [facility] Comment on above: Result Comment: Refe [...] Performed By: #### . Automated Diff #### [address] [address] Urology Office/Clinic Noteon 02-09-2024 Urology Office/Clinic Note [...] Daily, # 30 tabs, 12 Refill(s), Pharmacy: [facility] Medical Decision Making Chronic conditions NOT [...] RIVERAN-PALLAVI, Rosa James 02/09/24 11:32 EDT Normal [facility] .eGFRon 12-26-2023 GFR/1.73 sq M.predicted MDRD (S/P/Bld) [Vol rate/Area] mL/min/{1.73_m2} Normal >=60 [facility] Comment on above: Result Comment: [facility] Laboratories have implemented the eGFR [...] Performed By: #### . Automated Diff #### [address] [address] Basic Metabolic Profileon Anion gap [Moles/Vol] 9 mmol/L Normal 4-12 [facility] Comment on above: Performed By: #### . Automated Diff #### [address] [address] Calcium [Mass/Vol] 9.5 mg/dL Normal 8.5-10.3 [facility] Comment on above: Performed By: #### . Automated Diff #### [address] [address] Chloride [Moles/Vol] 100 mmol/L Normal 98-110 [facility] Comment on above: Performed By: #### . Automated Diff #### [address] [address] CO2 [Moles/Vol] 24 mmol/L Normal 22-32 [facility] Comment on above: Performed By: #### . Automated Diff #### [address] [address] Creatinine [Mass/Vol] 0.86 mg/dL Normal 0.44-1.03 [facility] Comment on above: Performed By: #### . Automated Diff #### [address] [address] Glucose [Mass/Vol] 82 mg/dL Normal 70-99 [facility] Comment on above: Performed By: #### . Automated Diff #### [address] [address] Potassium [Moles/Vol] 4.4 mmol/L Normal 3.4-4.8 [facility] Comment on above: Performed By: #### . Automated Diff #### [address] [address] Sodium [Moles/Vol] 133 mmol/L Normal 133-142 [facility] Comment on above: Performed By: #### . Automated Diff #### [address] [address] Urea nitrogen [Mass/Vol] 16 mg/dL Normal 8-26 [facility] Comment on above: Performed By: #### . Automated Diff #### [address] [address] Urea nitrogen/Creatini ne [Mass ratio] 18.6 mg/mg Normal 10.0-20.0 [facility] Comment on above: Performed By: #### . Automated Diff #### [address] [address] CBC w/ Diffon 12-26-2023 Erythrocyte distribution width (RBC) [Ratio] 14.9 % High 11.6-14.8 [facility] Comment on above: Performed By: #### . Automated Diff #### [place] [address]040 Hematocrit (Bld) [Volume fraction] 37.8 % Normal 36.0-46.0 [facility] Comment on above: Performed By: #### . Automated Diff #### [place] [address]040 Hemoglobin (Bld) [Mass/Vol] 12.4 g/dL Normal 12.0-16.0 [facility] Comment on above: Performed By: #### . Automated Diff #### [place] [address]040 MCH (RBC) [Entitic mass] 30.2 pg Normal 27.0-35.0 [facility] Comment on above: Performed By: #### . Automated Diff #### [place] [address] MCHC 32.9 % Normal 31.0-37.0 [facility] Comment on above: Performed By: #### . Automated Diff #### [place] [address]040 MCV (RBC) [Entitic vol] 91.7 fL Normal 80.0-100.0 [facility] Comment on above: Performed By: #### . Automated Diff #### [place] [address]040 Platelet 149 x10*3/mcL Low 150-450 [facility] Comment on above: Performed By: #### . Automated Diff #### [address] [address] Platelet mean volume (Bld) [Entitic vol] 8.7 fL Normal 6.7-10.6 [facility] Comment on above: Performed By: #### . Automated Diff #### [address] [address] RBC 4.12 x10*6/mcL Normal 3.80-5.20 [facility] Comment on above: Performed By: #### . Automated Diff #### [address] [address] WBC 6.0 x10*3/mcL Normal 4.5-11.0 [facility] Comment on above: Performed By: #### . Automated Diff #### [address] [address] Diff Autoon 12-26-2023 Baso Absolute 0.0 x10*3/mcL Normal 0.0-0.2 [facility] Comment on above: Performed By: #### . Automated Diff #### [address] [address] Basophils/100 WBC (Bld) 0.5 % Normal 0.0-1.5 [facility] Comment on above: Performed By: #### . Automated Diff #### [address] [address] Eos Absolute 0.1 x10*3/mcL Normal 0.0-0.4 [facility] Comment on above: Performed By: #### . Automated Diff #### [address] [address] Eosinophils/100 WBC (Bld) 2.4 % Normal 0.0-5.4 [facility] Comment on above: Performed By: #### . Automated Diff #### [address] [address] Lymph Absolute 2.4 x10*3/mcL Normal 1.0-4.8 [facility] Comment on above: Performed By: #### . Automated Diff #### [address] [address] Lymphocytes/100 WBC (Bld) 40.2 % Normal 27.2-40.8 [facility] Comment on above: Performed By: #### . Automated Diff #### [address] [address] [place] Absolute 0.5 x10*3/mcL Normal 0.1-1.1 [facility] Comment on above: Performed By: #### . Automated Diff #### [address] [address] Monocytes/100 WBC (Bld) 7.8 % Normal 3.7-11.9 [facility] Comment on above: Performed By: #### . Automated Diff #### [address] [address] Neutro Absolute 2.9 x10*3/mcL Normal 1.8-7.[address] [facility] Comment on above: Performed By: #### . Automated Diff #### [address] [address] Neutro Auto 49.1 % Normal 47.2-70.8 [facility] Comment on above: Performed By: #### . Automated Diff #### [address] [address] Hep Func Panelon 12-26-2023 Albumin [Mass/Vol] 4.4 g/dL Normal 3.2-4.9 [facility] Comment on above: Performed By: #### L IVER #### [address] [address] Alk Phos 58 IU/L Normal 32-91 [facility] Comment on above: Performed By: #### L IVER #### [address] [address] ALT [Catalytic activity/Vol] 36 U/L Normal 14-54 [facility] Comment on above: Performed By: #### L IVER #### [address] [address] AST [Catalytic activity/Vol] 27 U/L Normal 15-41 [facility] Comment on above: Performed By: #### L IVER #### [address] [address] Bili Direct 0.1 mg/dL Normal 0.1-0.5 [facility] Comment on above: Performed By: #### L IVER #### [address] [address] Bili Indirect 0.4 mg/dL Normal 0.0-1.0 [facility] Comment on above: Performed By: #### L IVER #### [address] [address] Bili Total 0.5 mg/dL Normal 0.3-1.2 [facility] Comment on above: Performed By: #### L IVER #### [address] [address] Protein [Mass/Vol] 7.8 g/dL Normal 6.5-8.1 [facility] Comment on above: Performed By: #### L IVER #### [address] [address] TSHon 12-26-2023 TSH Qn 2.13 m[IU]/L Normal 0.45-5.33 [facility] Comment on above: Result Comment: Refe [...] uIU/mL Performed By: #### T SH #### [address] [address] Valproicon 12-26-2023 Valproic Acid Level 102.3 mcg/mL High 50.0-100.0 [facility] Comment on above: Performed By: #### V AL #### [address] [address] Urology Office/Clinic Noteon 11-11-2023 Urology Office/Clinic Note [...] : deferred recent pelvic exam performed by MEDICAL REGISTRAR, negative findings per their report Additional Vitals [...] chew, # 30 tabs, 0 Refill(s), Pharmacy: [facility] Medical Decision Making Chronic conditions NOT [...] See Instructio (more content not included)... Normal [facility] Gynecology Office/Clinic Not black 09-01-2023 Gynecology Office/Clinic Note Chief Complaint UI, Hx hyst 2006. History of Present Illness Here with Holistic Health Practitioner non verbal hyst with ovaries removed. Holistic Health Practitioner reports she is sedentary start UI again after trip to [facility] and [facility]. Macrobid daily Review of Systems [...] symptoms after ATB and re training bladder. administrative assistant coordinator believes it was due to change in [...] Daily, # 90 caps, 3 Refill(s), Pharmacy: [facility] cephalexin, 1 caps, Oral, q12hr, X 7 days, # 14 caps, 0 Refill(s), 09/08/23 10:44:00 EDT, Pharmacy: [facility] nitrofurantoin, 1 caps, Oral, Daily, # 90 caps, 3 Refill(s), Pharmacy: [facility] Medical Decision Making Chronic conditions NOT [...] in house (more content not included)... Normal [facility] FOOT LEFT 3 [facility] 02-03-2021 FOOT LEFT 3 [facility] Department of Radiology [address] [place] [id number] == Patient Name: ORALIA WHITFIELD : 1980 Sex: F Age: Race: White Pt. Location: Patient Status: O Ordered Date: 02/03/2021 11:20:00 AM Completed Date: 02/03/2021 11:32 AM Requesting Provider: LA MCKINNON Attending Provider: LA MCKINNON Report Copy To: Signs & Symptoms: S92.345A Nondisp fx of fourth metatarsal bone, left foot, init I10 History: Comments: Evaluate Exam: FOOT LEFT 3 [facility] == FOOT LEFT 3 S 02/03/2021 11:32 [...] necks. Electronically signed: Devon Allan. Transcribed by: [email or web address], User Resident: Electronically Signed by: DEVON ALLAN @ 02/03/2021 12:49 PM Normal [facility] Comment on above: Order Comment: Evalu ate FOOT LEFT 3 [facility] 01-06-2021 FOOT LEFT 3 [facility] Department of Radiology [address] [place] [phone] == Patient Name: ORALIA WHITFIELD : 1980 Sex: F Age: Race: White Pt. Location: 84 Patient Status: O Ordered Date: 01/06/2021 9:45:00 AM Completed Date: 01/06/2021 09:49 AM Requesting Provider: LA MCKINNON Attending Provider: LA MCKINNON Report Copy To: Signs & Symptoms: S92.345A Nondisp fx of fourth metatarsal bone, left foot, init I10 History: Comments: evalaute Exam: FOOT LEFT 3 [facility] == FOOT LEFT 3 S 01/06/2021 9:49 [...] report. Electronically signed: Lenny Law. Transcribed by: [email or web address], User Resident: AAMIR LENTZ Electronically Signed by: LENNY LAW @ 01/06/2021 12:04 PM I personally read this/these film(s) with this resident Normal [facility] Comment on above: Order Comment: nacho wu FOOT LEFT 3 [facility] 12-16-2020 FOOT LEFT 3 [facility] Department of Radiology [address] [place] [phone] == Patient Name: ORALIA WHITFIELD : [...] fractures. Electronically signed: Lenny Law. Transcribed by: [email or web address], User Resident: Electronically Signed by: LENNY LAW @ 12/17/2020 10:25 AM Normal [facility] Comment on above: Order Comment: Evalu ate Urine Cultureon 12-02-2020 Bacteria identified Cx Nom (U) Final report Critically abnormal . [facility] Comment on above: Order Comment: Reaso n for Exam Urge incontinence of urine Performed By: #### U RINE CULTURE #### [facility] , Ur Cult Antimic Suceptibility Normal . [facility] Comment on above: Order Comment: Reaso n [...] Tobramycin S Trimethoprim/Sulfa S Performed at: - [facility] [id number] Fixer Supervisor: Kodak Tracy PhD, Phone: [phone] PERFORMED BY: [place] [address] PATHOLOGIST DIE FORGER ROSA ISELA GORE M.D. Performed By: #### U RINE CULTURE #### [facility] , Urine Culture, Res 1 Escherichia coli Critically abnormal . [facility] Comment on above: Order Comment: Reaso n [...] 021 XR foot LT min 3V* [facility] [place] [address] XRay Report Signed Patient: Oralia Whitfield MR#: [id number] : 1980 Acct:[id number] Age/Sex: 40 / F ADM Date: 12/02/20 Loc: XDUCLY Room: Type: [facility] Attending Dr: Lucero DEGROOT Ordering Provider: [...] Modesto Jones M.D.12/02/2020 5:14 PM Dictation Location: [place] [address] Transcribed By: [facility] 12/02/201713 Dictated By: Modesto Jones DO 12/02/201706 Signed By: 12/02/201713 [facility] Urine Cultureon 09-05-2020 Bacteria identified Cx Nom (U) Reason for Exam Dysuria Urine Reason for Exam: Dysuria : Urine ORGANISM: Escherichia coli (O:ESCCOL) [place] Count >100,000 Aerobic LYNNE Charge (NUC86) - [...] RESISTANT TO ALL B-LACTAM DRUGS. PERFORMED BY: [facility] [address] [place] [address] PATHOLOGIST DIE FORGER ROSA ISELA GORE M.D. [facility] Comment on above: Performed By: #### C UU #### [facility] [address] [place] [address] [facility] XR WRIST RIGHT MINIMUM 3 VIE WSon 10-09-2017 XR WRIST RIGHT MINIMUM 3 VIEWS CLINICAL: Status post fall. Fracture risk. Status post attempted reduction.COMPARISON: Earlier radiographs TECHNIQUE: 3 views of the right wrist FINDINGS: There is attempted reduction with persistent mal- alignment of the fracture site..IMPRESSION:Persist ent displacement of the fracturesWorkstation ID:[id number] fell. Post reduction. Patient has autism and is MRDD. Tech held for films best images possible. Normal [facility] XR WRIST RIGHT MINIMUM 3 VIEWS CLINICAL: Right wrist fracture, post reduction.COMPARISON: Earlier radiographs TECHNIQUE: 3 views of the right wrist FINDINGS: There is interval reduction of the distal radius fracture. There is improved alignment..IMPRESSION:Po st reductionWorkstation ID:[id number] attempt post reduction of right wrist fx. Held for images by tech. Normal [facility] CT HEAD WITHOUT CONTRASTon 0 [...] lesions. IMPRESSION: No acute intracranial injury detected.Workstation ID:[id number] ambulated to triage desk with mom. Mom stated pt fell out of a chart picker truck while holding her lunch. Has head & R wrist inj. Mom denies LOC. Pt has abrasions above R eyebrow, & under R eye, is bleeding from her nose, & has a deformity to her R wrist. Mom said pt is autistic, and MRDD. Mx: noneSx: noneNoncontrastabg-c Normal [facility] CT MAXILLOFACIAL / SINUS WIT [...] fracture seen IMPRESSION:Negative for facial fracture. Workstation ID:[id number] ambulated to triage desk with mom. Mom stated pt fell out of a chart picker truck while holding her lunch. Has head & R wrist inj. Mom denies LOC. Pt has abrasions above R eyebrow, & under R eye, is bleeding from her nose, & has a deformity to her R wrist. Mom said pt is autistic, and MRDD. Mx: noneSx: noneNoncontrastabg-c [facility] CT SPINE CERVICAL WITHOUT CO [...] of cervical lordosis.IMPRESSION:No acute osseous injury seen.Workstation ID:[id number] ambulated to triage desk with mom. Mom stated pt fell out of a chart picker truck while holding her lunch. Has head & R wrist inj. Mom denies LOC. Pt has abrasions above R eyebrow, & under R eye, is bleeding from her nose, & has a deformity to her R wrist. Mom said pt is autistic, and MRDD. Mx: noneSx: noneNoncontrastabg-c [facility] XR CHEST PA OR AP 1 VIEW (PO RTABLE)on 10-08-2017 XR CHEST PA OR AP 1 VIEW (PORTABLE) CLINICAL: Fell out of a truck.COMPARISON: noneTECHNIQUE: AP portable chestFINDINGS:The lungs are clear. Pulmonary vascularity is normal.IMPRESSION: No acute lung lesion seen.Workstation ID:[id number] stated patient fell out of a chart picker truck while holding her lunch. Right wrist injury, obvious deformity. Mom denies LOC. Mom said pt is autistic, and MRDD. Poor historian. Normal [facility] XR PELVIS 1 OR 2 VIEWSon XR PELVIS 1 OR 2 VIEWS CLINICAL: Patient fell out of a truck.COMPARISON: NoneTECHNIQUE: AP pelvisFINDINGS:The osseous pelvis is intact. Hip alignment is anatomic, and the sacroiliac joints are unremarkable. IMPRESSION: Unremarkable AP pelvis x-rays.Workstation ID:[id number] stated patient fell out of a chart picker truck while holding her lunch. Right wrist injury, obvious deformity. Mom denies LOC. Mom said pt is autistic, and MRDD. Poor historian. Normal [facility] XR WRIST RIGHT MINIMUM 3 VIE WSon 10-08-2017 XR WRIST RIGHT MINIMUM 3 VIEWS CLINICAL: Fell out of a truck. Right wrist pain and injuryCOMPARISON: None TECHNIQUE: 3 views of the right wrist FINDINGS: There is comminuted displaced fracture of the distal radius and an avulsion fracture of the ulnar styloid..IMPRESSION:Frac ture distal radius and ulna styloid processWorkstation ID:[id number] stated patient fell out of a chart picker truck while holding her lunch. Right wrist injury, obvious deformity. Mom denies LOC. Mom said pt is autistic, and MRDD. Poor historian. Normal [facility] Encounters Encounter Date Encounter Type Care Provider Facility Start: 06-26-2024 End: 06-26-2024 ambulatory Rashi Gruber MD Facility:[facility] Start: 05-31-2024 End: 05-31-2024 ambulatory Rashi Gruber MD Facility:[facility] Start: 04-30-2024 End: 04-30-2024 ambulatory Rashi Gruber MD Facility:[facility] Start: 03-27-2024 End: 03-27-2024 ambulatory Rashi Gruber MD Facility:[facility] Start: 03-19-2024 End: 03-19-2024 ambulatory Wayne Coronel MD Facility:[facility] Start: 02-09-2024 End: 02-09-2024 ambulatory Rosa Saenz APRN-[facility] [employer] Facility:[facility] Start: 2024 End: 2024 ambulatory Wayne Coronel MD Facility:[facility] Start: 01-02-2024 End: 01-02-2024 ambulatory Wayne Coronel MD Facility:[facility] Start: 12-26-2023 End: 12-26-2023 ambulatory Wayne Coronel MD Facility:[facility] Start: 11-14-2023 End: 11-14-2023 ambulatory Wayne Coronel MD Facility:[facility] Start: 11-11-2023 End: 11-11-2023 ambulatory Rosa Saenz 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-[facility] [employer] Facility:[facility] Start: 10-27-2023 End: 10-27-2023 ambulatory Roxana Blanco 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[employer] [employer] Facility:[facility] Start: 10-05-2023 End: 10-05-2023 ambulatory Wayne Coronel MD Facility:[facility] Start: 09-01-2023 End: 09-01-2023 ambulatory Roxana Blanco 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[employer] [employer] Facility:[facility] Start: 08-31-2023 End: 08-31-2023 ambulatory Wayne Coronel MD Facility:[facility] Start: 08-02-2023 End: 08-02-2023 ambulatory Wayne Coronel MD Facility:[facility] Start: 08-23-2022 End: 08-23-2022 ambulatory NICKIE DESHPANDE Facility: Start: 10-08-2017 End: 10-08-2017 Emergency department patient visit KIERAN DIAZ [facility] Plan of Treatment Date Care Activity Detail Author Start: 09-19-2024 ambulatory Ambulatory Facility:[facility] Payers Date Payer Category Payer Medicaid 2021 Medicare 1980 Unknown [id number] [id number] 1980 Unknown [id number] 2.. 840.1.997434.3.579.2.196 1980 Unknown [id number] .. 840.1.940202.3.579.2.196 1980 Unknown [id number] 2. 840.1.814898.3.579.2. 1980 Unknown [id number] 2.16 840.1.012182.3.579.2. 1982 Unknown [id number] 2. 840.1.033267.3.579.2. 1980 Unknown [id number] 2. 840.1.059125.3.579.2. 1982 Unknown [id number] 2. 840.1.254539.3.579.2. 1980 Unknown [id number] 2. 840.1.802643.3.579.2. 1980 Unknown [id number] 2.0.1.398753.3.579.2. 1980 Unknown [id number] 2. 840.1.397621.3.579.2. 1982 Unknown [id number] 2.0.1.218188.3.579.2. 1982 Unknown [id number] 2. 840.1.411919.3.579.2. 1982 Unknown [id number] 20.1.576477.3.579.2. 1982 Unknown [id number] 2. 840.1.191775.3.579.2. 1982 Unknown [id number] 2. 840.1.102344.3.579.2. 1982 Unknown [id number] 2. 840.1.675229.3.579.2. 1982 Unknown [id number] 2. 840.1.396578.3.579.2. 1982 Unknown [id number] 2. 840.1.981227.3.579.2. 1982 Unknown [id number] 2.16. 840.1.467772.3.579.2. 1982 Unknown [id number] 2.16. 840.1.827076.3.579.2.196 1980 Unknown [id number] 2.16. 840.1.103522.3.579.2. 1980 Unknown [id number] 2.16. 840.1.673328.3.579.2. 1980 Unknown [id number] 2.16. 840.1.275943.3.579.2.196 1957 Medicaid [id number] 1957 Medicare [id number] Medicare [id number] Clinical Note 08-23-2022 Note Date & Type [...] by: DELMY CHÁVEZ Date: 2022-08-23 12:[address] [facility] Clinical Note 08-23-2022 Note Date & [...] by: DELMY CHÁVEZ Date: 2022-08-23 12:[address] [facility] Summary Purpose Family History No Family [...] DATE CREATED AUTHOR AUTHOR'S ORGANIZ ATION 02/04/2021 [facility] DATE CREATED AUTHOR AUTHOR'S ORGANIZ ATION 07/15/2021 [facility] DATE CREATED AUTHOR AUTHOR'S ORGANIZ ATION 08/24/2022 [facility] DATE CREATED AUTHOR AUTHOR'S ORGANIZ ATION 06/27/2024 [facility] FOR RECORDS PERTAINING TO PATIENTS WHO [...] BE BASED ON THE PRIMARY CLINICAL RECORDS. [facility] [employer] [facility]. provides no warranty or guarantee of the accuracy or completeness of information in this document.
[2024-07-09] MEDS: LACTATED RINGER'S SOLUTION 1,000 ML 50 ML IV (11:44)
[2024-07-09] MEDS: CEFAZOLIN SODIUM 2 GM/50 ML D5W PREMIX IV (12:46)
--- NOTE | 2024-07-09 12:49 | P.ORPRC_ITS ---
Procedure Note Date of procedure: 07/09/24 Pre-op diagnosis: Left distal radius fracture, greater than 3 part intra- articular Post-op diagnosis: same as pre-op Procedure: Procedure: Open reduction internal fixation left distal radius fracture Findings: Reduced distal radius fracture with appropriate implant placement and lengths Detailed Description of Procedure: After informed consent was obtained the patient brought to the operating room where general anesthetic was administered. A well-padded proximal arm tourniquet was placed on the left arm was prepped and draped in usual sterile fashion. The arm was elevated, exsanguinated, and the tourniquet was inflated to 200 mmHg. A 6 cm incision made overlying the flexor carpi radialis tendon overlying the distal radius. Blunt dissection was carried down through soft tissue. The flexor carpi radialis tendon was retracted ulnarly along with the flexor pollicis longus muscle and tendon. Pronator quadratus was incised in an L- shaped fashion off of the bone. Distal radius fracture was identified at this point and found to be intra-articular and comminuted. Using a combination of traction and manipulation and reduction was performed and appropriate reduction was confirmed under x-ray. A Synthes by column distal radius plate was then placed and provisionally held into place with K wires. This was adjusted until the appropriate position was achieved under multiple fluoroscopy views. The plate was then first fixed with a 2.7 bicortical nonlocking screw in the oblong hole in the shaft. Holding the distal fragments reduced a total of 6 unicortical 2.4 mm locking screws were placed at the distal fragments followed by an additional 2 screws placed in the shaft in a bicortical locking fashion. Final x-rays in multiple planes revealed a reduced distal radius fracture with appropriate implant placement and lengths. Wound was irrigated. Pronator quadratus was repaired with an 0 Vicryl suture. Skin was closed with observable suture in layers. Well-padded dressing was placed followed by a fiberglass cast. This was placed very loose and well-padded and then it was univalved volarly.. Tourniquet was deflated. Patient was awakened and brought to the recovery room in stable condition. There are no intraoperative or immediate postoperative complications. Anesthesia: General-LMA Surgeon: Sebastien Fernandez Estimated blood loss (mL): 5 Pathology: none sent Condition: stable Disposition: PACU
[2024-07-09] MEDS: LIDOCAINE HCL 1%-EPINEPHRINE 1:100,000 20 ML MDV 6 ML INJ (13:52)
[2024-07-09] MEDS: BUPIVACAINE HCL 0.5% PF 50 MG/10 ML VIAL INJ (13:52)
--- NOTE | 2024-07-09 14:41 | PC.NURSE ---
Extremity elevated above heart level and ice applied
== END 2024-07-09 15:30 | disposition home or self-care (01) ==
PROVIDERS: Anesthesiology; Visit Provider Orthopaedic Surgery
PROC: (CPT 25609; principal; 2024-07-09 12:00)
DX: S52.572A Other intraarticular fracture of lower end of left radius, initial encounter for closed fracture (principal); Z90.710 Acquired absence of both cervix and uterus; R56.9 Unspecified convulsions; K21.9 Gastro-esophageal reflux disease without esophagitis
CPT/HCPCS: 25609; 36415; 76000; 85025; C1713; J0131; J0665; J0690; J1100; J1885; J2250; J2405; J2704; J3010

== ENCOUNTER 2024-07-23 11:05 | Outpatient (OUT) | payer MEDICARE, MEDICAID, SELFPAY ==
--- NOTE | 2024-07-23 | XR_ITS ---
[facility] [place] [id number] Patient Name: ORALIA WHITFIELD MRN: [id number] date: 1980 Sex: F Assigned Patient Location: Current Patient Location: Accession/Order Number: [id number] Exam Date: 07/23/2024 13:57 Report Date: 07/23/2024 14:00 At the request of: DELMY JACINTO MD Procedure: XR wrist LT min 3V LEFT WRIST - 3 views COMPARISON: 07/02/2024 and 07/09/2024 (intraoperative) CLINICAL DATA: Follow-up wrist fractures. Left wrist pain. AP, lateral and oblique views were obtained with a fiberglass cast. This somewhat obscures fine bone detail. There is redemonstration of a volar plate and screws at the distal radius. The underlying fracture is unchanged in alignment from the intraoperative comparison. A mildly displaced ulnar styloid fracture is again visualized. No new fractures or dislocation are noted. Diffuse soft tissue swelling is seen. XR/XR wrist LT min 3V IMPRESSION: STABLE FRACTURES INVOLVING THE DISTAL RADIUS AND ULNAR STYLOID. Impression dictated by: Emilia Ramirez M.D.07/23/2024 2:00 PM Dictation Location: [place] [address] Electronically authenticated by: [id number] Y Date: 07/23/2024 14:00
--- OUTSIDE RECORDS SUMMARY | 2024-07-23 11:25 | XMS_ITS | CCD ---
Author Organization [facility] Team Providers Care Hand Candle Dipper Name Role Phone DIAZKIERAN MC Unavailable Unavailable [...] sources) Morphine; Translations: [morphine] Drug Allergy [facility] Repository Problems Active Problems Problem Classification Problem Date Documented Da te Episodic/Chronic Developmental disorders (1 source) Unspecified intellectual disabilities; Translations: [UNSPEC INTELLECTUAL DISABILITIES] Onset: 08-24-2022 Chronic E Codes: Fall (1 source) Unspecified fall, initial encounter; Translations: [UNSPECIFIED FALL INITIAL ENCOUNTER] Onset: 08-24-2022 Episodic Other aftercare (1 source) 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; Translations: [OTH CUSTODIAL CURRENT DRUG THERAPY] Onset: 08-24-2022 Episodic Other [...] 10-08-2017 Unclassified (1 source) Head Injury / 15000() Onset: 10-08-2017 Unclassified (1 source) Wrist Injury / 48645() Onset: 10-08-2017 Unclassified (1 source) Unspecified fracture [...] MDRD (S/P/Bld) [Vol rate/Area] mL/min/{1.73_m2} Normal >=60 [facility] Comment on above: Order Comment: Order added by Discern rule Result Comment: [facility] Laboratories have implemented [...] years Performed By: #### E GFR #### [address] [address] CBC w/ Diffon 06-26-2024 Erythrocyte distribution width (RBC) [Ratio] 15.0 % High 11.6-14.8 [facility] Comment on above: Performed By: #### C BC #### [address] [address] Hematocrit (Bld) [Volume fraction] 38.5 % Normal 36.0-46.0 [facility] Comment on above: Performed By: #### C BC #### [address] [address] Hemoglobin (Bld) [Mass/Vol] 12.9 g/dL Normal 12.0-16.0 [facility] Comment on above: Performed By: #### C BC #### [address] [address] MCH (RBC) [Entitic mass] 29.7 pg Normal 27.0-35.0 [facility] Comment on above: Performed By: #### C BC #### [address] [address] MCHC 33.5 % Normal 31.0-37.0 [facility] Comment on above: Performed By: #### C BC #### [address] [address] MCV (RBC) [Entitic vol] 88.5 fL Normal 80.0-100.0 [facility] Comment on above: Performed By: #### C BC #### [address] [address] Platelet 180 x10*3/mcL Normal 150-450 [facility] Comment on above: Performed By: #### C BC #### [address] [address] Platelet mean volume (Bld) [Entitic vol] 8.4 fL Normal 6.7-10.6 [facility] Comment on above: Performed By: #### C BC #### [address] [address] RBC 4.35 x10*6/mcL Normal 3.80-5.20 [facility] Comment on above: Performed By: #### C BC #### [address] [address] WBC 6.8 x10*3/mcL Normal 4.5-11.0 [facility] Comment on above: Performed By: #### C BC #### [address] [address] CMPon 06-26-2024 Albumin [Mass/Vol] 4.2 g/dL Normal 3.2-4.9 [facility] Comment on above: Performed By: #### . Automated Diff #### [address] [address] Albumin/Globulin [Mass ratio] 1.4 {ratio} Normal 1.1-2.2 [facility] Comment on above: Performed By: #### . Automated Diff #### [address] [address] Alk Phos 63 IU/L Normal 32-91 [facility] Comment on above: Performed By: #### . Automated Diff #### [address] [address] ALT [Catalytic activity/Vol] 23 U/L Normal 14-54 [facility] Comment on above: Performed By: #### . Automated Diff #### [address] [address] AST [Catalytic activity/Vol] 22 U/L Normal 15-41 [facility] Comment on above: Performed By: #### . Automated Diff #### [address] [address] Bili Total 0.3 mg/dL Normal 0.3-1.2 [facility] Comment on above: Performed By: #### . Automated Diff #### [address] [address] Protein [Mass/Vol] 7.2 g/dL Normal 6.5-8.1 [facility] Comment on above: Performed By: #### . Automated Diff #### [address] [address] Anion gap [Moles/Vol] 11 mmol/L Normal 4-12 [facility] Comment on above: Performed By: #### . Automated Diff #### [address] [address] Calcium [Mass/Vol] 10.2 mg/dL Normal 8.5-10.3 [facility] Comment on above: Performed By: #### . Automated Diff #### [address] [address] Chloride [Moles/Vol] 102 mmol/L Normal 98-110 [facility] Comment on above: Performed By: #### . Automated Diff #### [address] [address] CO2 [Moles/Vol] 23 mmol/L Normal 22-32 [facility] Comment on above: Performed By: #### . Automated Diff #### [address] [address] Creatinine [Mass/Vol] 0.85 mg/dL Normal 0.44-1.03 [facility] Comment on above: Performed By: #### . Automated Diff #### [address] [address] Glucose [Mass/Vol] 80 mg/dL Normal 70-99 [facility] Comment on above: Performed By: #### . Automated Diff #### [address] [place] [address] Potassium [Moles/Vol] 4.8 mmol/L Normal 3.4-4.8 [facility] Comment on above: Performed By: #### . Automated Diff #### [place] [id number] Sodium [Moles/Vol] 136 mmol/L Normal 133-142 [facility] Comment on above: Performed By: #### . Automated Diff #### [place] [id number] Urea nitrogen [Mass/Vol] 22 mg/dL Normal 8-26 [facility] Comment on above: Performed By: #### . Automated Diff #### [place] [id number] Urea nitrogen/Creatini ne [Mass ratio] 25.9 mg/mg High 10.0-20.0 [facility] Comment on above: Performed By: #### . Automated Diff #### [place] [id number] Diff Autoon 06-26-2024 Baso Absolute 0.0 x10*3/mcL Normal 0.0-0.2 [facility] Comment on above: Performed By: #### . Automated Diff #### [address] [address] Basophils/100 WBC (Bld) 0.3 % Normal 0.0-1.5 [facility] Comment on above: Performed By: #### . Automated Diff #### [address] [address] Eos Absolute 0.0 x10*3/mcL Normal 0.0-0.4 [facility] Comment on above: Performed By: #### . Automated Diff #### [address] [address] Eosinophils/100 WBC (Bld) 0.6 % Normal 0.0-5.4 [facility] Comment on above: Performed By: #### . Automated Diff #### [address] [address] Lymph Absolute 2.1 x10*3/mcL Normal 1.0-4.8 [facility] Comment on above: Performed By: #### . Automated Diff #### [address] [address] Lymphocytes/100 WBC (Bld) 31.7 % Normal 27.2-40.8 [facility] Comment on above: Performed By: #### . Automated Diff #### [address] [address] [place] Absolute 0.5 x10*3/mcL Normal 0.1-1.1 [facility] Comment on above: Performed By: #### . Automated Diff #### [address] [address] Monocytes/100 WBC (Bld) 7.1 % Normal 3.7-11.9 [facility] Comment on above: Performed By: #### . Automated Diff #### [address] [address] Neutro Absolute 4.1 x10*3/mcL Normal 1.8-7.7 [facility] Comment on above: Performed By: #### . Automated Diff #### [place] [id number] Neutro Auto 60.3 % Normal 47.2-70.8 [facility] Comment on above: Performed By: #### . Automated Diff #### [place] [id number] Family Medicine Office/Clini c Noteon 06-26-2024 Family [...] inactivated 02/28 (more content not included)... Normal [facility] Hgb A1con 06-26-2024 Glucose [Mass/Vol] 108 mg/dL Normal 68-114 [facility] Comment on above: Result Comment: Math ematical Calc approx. The mean gluc equivalency of A1c Performed By: #### H BA1C #### [address] [address] Hgb A1c 5.4 % A1c Normal 4.0-5.6 [facility] Comment on above: Result Comment: Refe rence Range: 4.0 - 5.6 % Normal 5.7 - 6.4 % Pre-Diabetes > 6.5 % Diabetes Performed By: #### H BA1C #### [address] [address] Lipid Panelon 06-26-2024 Cholesterol in LDL [Mass/Vol] 88 mg/dL Normal 0-99 [facility] Comment on above: Result Comment: The equation being used in this calculation is LDL = (Chol - HDL) - (Trig / 5) The optimal value of LDL for individual patients may vary. The patient's history of Artherosclerosis and other cardiac risk factors should be considered. Performed By: #### . Automated Diff #### [address] [address] Cardiac Risk 3.1 Normal [facility] Comment on above: Result Comment: Men Women 1/2 Average 3.43 3.27 Average 4.97 4.44 2x Average 9.55 7.05 3x Average 23.99 11.04 Performed By: #### . Automated Diff #### [address] [address] Cholesterol [Mass/Vol] 166 mg/dL Normal 25-199 [facility] Comment on above: Result Comment: 0 - 17 years of age: Desirable 0-170 Borderline High 170-199 High >=200 18 years and older: Acceptable <200 Borderline High 200-239 High >=240 Performed By: #### . Automated Diff #### [address] [address] Cholesterol in HDL [Mass/Vol] 53.8 mg/dL Normal 40.0-60.0 [facility] Comment on above: Performed By: #### . Automated Diff #### [address] [address] Cholesterol in VLDL [Mass/Vol] 24 mg/dL Normal 8-39 [facility] Comment on above: Performed By: #### . Automated Diff #### [address] [address] Triglyceride [Mass/Vol] 120 mg/dL Normal [facility] Comment on above: Result Comment: 0 - 17 years of age: Trig 90 - 129 Borderline High Trig => 130 High 18 years and older: Trig 150 - 199 Borderline High Trig 200 - 499 High Trig =>500 Very High Performed By: #### . Automated Diff #### [address] [address] TSHon 06-26-2024 TSH Qn 1.17 m[IU]/L Normal 0.45-5.33 [facility] Comment on above: Result Comment: Refe rence Ranges for individuals from to 18 years of age were obtained from The Stacy Hilton Handbook (20 ed) published by [facility]. Reference Ranges for Females: Females, 1st Trimester 0.05 ? 3.7 uIU/mL Females, 2nd Trimester 0.31 ? 4.35 uIU/mL Females, 3rd Trimester 0.41 ? 5.18 uIU/mL Performed By: #### . Automated Diff #### [address] [address] Urology Office/Clinic Noteon 02-09-2024 Urology Office/Clinic Note [...] Daily, # 30 tabs, 12 Refill(s), Pharmacy: [facility] Medical Decision Making Chronic conditions NOT [...] RIVERAN-PALLAVI, Rosa James 02/09/24 11:32 EDT Normal [facility] .eGFRon 12-26-2023 GFR/1.73 sq M.predicted MDRD (S/P/Bld) [Vol rate/Area] mL/min/{1.73_m2} Normal >=60 [facility] Comment on above: Result Comment: [facility] [...] Performed By: #### . Automated Diff #### [address] [address] Basic Metabolic Profileon Anion gap [Moles/Vol] 9 mmol/L Normal 4-12 [facility] Comment on above: Performed By: #### . Automated Diff #### [address] [address] Calcium [Mass/Vol] 9.5 mg/dL Normal 8.5-10.3 [facility] Comment on above: Performed By: #### . Automated Diff #### [address] [address] Chloride [Moles/Vol] 100 mmol/L Normal 98-110 [facility] Comment on above: Performed By: #### . Automated Diff #### [address] [address] CO2 [Moles/Vol] 24 mmol/L Normal 22-32 [facility] Comment on above: Performed By: #### . Automated Diff #### [address] [address] Creatinine [Mass/Vol] 0.86 mg/dL Normal 0.44-1.03 [facility] Comment on above: Performed By: #### . Automated Diff #### [address] [address] Glucose [Mass/Vol] 82 mg/dL Normal 70-99 [facility] Comment on above: Performed By: #### . Automated Diff #### [address] [address] Potassium [Moles/Vol] 4.4 mmol/L Normal 3.4-4.8 [facility] Comment on above: Performed By: #### . Automated Diff #### [address] [address] Sodium [Moles/Vol] 133 mmol/L Normal 133-142 [facility] Comment on above: Performed By: #### . Automated Diff #### [address] [address] Urea nitrogen [Mass/Vol] 16 mg/dL Normal 8-26 [facility] Comment on above: Performed By: #### . Automated Diff #### [address] [address] Urea nitrogen/Creatini ne [Mass ratio] 18.6 mg/mg Normal 10.0-20.0 [facility] Comment on above: Performed By: #### . Automated Diff #### [address] [address] CBC w/ Diffon 12-26-2023 Erythrocyte distribution width (RBC) [Ratio] 14.9 % High 11.6-14.8 [facility] Comment on above: Performed By: #### . Automated Diff #### [place] [id number] Hematocrit (Bld) [Volume fraction] 37.8 % Normal 36.0-46.0 [facility] Comment on above: Performed By: #### . Automated Diff #### [place] [address] Hemoglobin (Bld) [Mass/Vol] 12.4 g/dL Normal 12.0-16.0 [facility] Comment on above: Performed By: #### . Automated Diff #### [place] [address] MCH (RBC) [Entitic mass] 30.2 pg Normal 27.0-35.0 [facility] Comment on above: Performed By: #### . Automated Diff #### [place] [address] MCHC 32.9 % Normal 31.0-37.0 [facility] Comment on above: Performed By: #### . Automated Diff #### [place] [address] MCV (RBC) [Entitic vol] 91.7 fL Normal 80.0-100.0 [facility] Comment on above: Performed By: #### . Automated Diff #### [place] [id number] Platelet 149 x10*3/mcL Low 150-450 [facility] Comment on above: Performed By: #### . Automated Diff #### [address] [address] Platelet mean volume (Bld) [Entitic vol] 8.7 fL Normal 6.7-10.6 [facility] Comment on above: Performed By: #### . Automated Diff #### [address] [address] RBC 4.12 x10*6/mcL Normal 3.80-5.20 [facility] Comment on above: Performed By: #### . Automated Diff #### [address] [address] WBC 6.0 x10*3/mcL Normal 4.5-11.0 [facility] Comment on above: Performed By: #### . Automated Diff #### [address] [address] Diff Autoon 12-26-2023 Baso Absolute 0.0 x10*3/mcL Normal 0.0-0.2 [facility] Comment on above: Performed By: #### . Automated Diff #### [address] [address] Basophils/100 WBC (Bld) 0.5 % Normal 0.0-1.5 [facility] Comment on above: Performed By: #### . Automated Diff #### [address] [address] Eos Absolute 0.1 x10*3/mcL Normal 0.0-0.4 [facility] Comment on above: Performed By: #### . Automated Diff #### [address] [address] Eosinophils/100 WBC (Bld) 2.4 % Normal 0.0-5.4 [facility] Comment on above: Performed By: #### . Automated Diff #### [address] [address] Lymph Absolute 2.4 x10*3/mcL Normal 1.0-4.8 [facility] Comment on above: Performed By: #### . Automated Diff #### [address] [address] Lymphocytes/100 WBC (Bld) 40.2 % Normal 27.2-40.8 [facility] Comment on above: Performed By: #### . Automated Diff #### [address] [address] [place] Absolute 0.5 x10*3/mcL Normal 0.1-1.1 [facility] Comment on above: Performed By: #### . Automated Diff #### [address] [address] Monocytes/100 WBC (Bld) 7.8 % Normal 3.7-11.9 [facility] Comment on above: Performed By: #### . Automated Diff #### [address] [address] Neutro Absolute 2.9 x10*3/mcL Normal 1.8-7.7 [facility] Comment on above: Performed By: #### . Automated Diff #### [address] [address] Neutro Auto 49.1 % Normal 47.2-70.8 [facility] Comment on above: Performed By: #### . Automated Diff #### [address] [address] Hep Func Panelon 12-26-2023 Albumin [Mass/Vol] 4.4 g/dL Normal 3.2-4.9 [facility] Comment on above: Performed By: #### L IVER #### [address] [address] Alk Phos 58 IU/L Normal 32-91 [facility] Comment on above: Performed By: #### L IVER #### [address] [address] ALT [Catalytic activity/Vol] 36 U/L Normal 14-54 [facility] Comment on above: Performed By: #### L IVER #### [address] [address] AST [Catalytic activity/Vol] 27 U/L Normal 15-41 [facility] Comment on above: Performed By: #### L IVER #### [address] [address] Bili Direct 0.1 mg/dL Normal 0.1-0.5 [facility] Comment on above: Performed By: #### L IVER #### [address] [address] Bili Indirect 0.4 mg/dL Normal 0.0-1.0 [facility] Comment on above: Performed By: #### L IVER #### [address] [address] Bili Total 0.5 mg/dL Normal 0.3-1.2 [facility] Comment on above: Performed By: #### L IVER #### [address] [address] Protein [Mass/Vol] 7.8 g/dL Normal 6.5-8.1 [facility] Comment on above: Performed By: #### L IVER #### [address] [address] TSHon 12-26-2023 TSH Qn 2.13 m[IU]/L Normal 0.45-5.33 [facility] Comment on above: Result Comment: Refe rence Ranges for individuals from to 18 years of age were obtained from The [employer]acy [employer] Handbook (20 ed) published by [facility]. Reference Ranges for Females: Females, 1st Trimester 0.05 ? 3.7 uIU/mL Females, 2nd Trimester 0.31 ? 4.35 uIU/mL Females, 3rd Trimester 0.41 ? 5.18 uIU/mL Performed By: #### T SH #### [address] [address] Valproicon 12-26-2023 Valproic Acid Level 102.3 mcg/mL High 50.0-100.0 [facility] Comment on above: Performed By: #### V AL #### [address] [address] Urology Office/Clinic Noteon 11-11-2023 Urology Office/Clinic Note [...] : deferred recent pelvic exam performed by WASHER CARCASS, negative findings per their report Additional Vitals [...] chew, # 30 tabs, 0 Refill(s), Pharmacy: [facility] Medical Decision Making Chronic conditions NOT [...] See Instructio (more content not included)... Normal [facility] Gynecology Office/Clinic Not black 09-01-2023 Gynecology Office/Clinic Note Chief Complaint UI, Hx hyst 2006. History of Present Illness Here with Senior Hydrogeologist non verbal hyst with ovaries removed. Senior Hydrogeologist reports she is sedentary start UI again after trip to [facility] and [facility]. Macrobid daily Review of Systems Cough: [...] symptoms after ATB and re training bladder. undertaker assistant believes it was due to change in [...] Daily, # 90 caps, 3 Refill(s), Pharmacy: [facility] cephalexin, 1 caps, Oral, q12hr, X 7 days, # 14 caps, 0 Refill(s), 09/08/23 10:44:00 EDT, Pharmacy: [facility] nitrofurantoin, 1 caps, Oral, Daily, # 90 caps, 3 Refill(s), Pharmacy: [facility] Medical Decision Making Chronic conditions NOT [...] in house (more content not included)... Normal [facility] FOOT LEFT 3 [facility] 02-03-2021 FOOT LEFT 3 [facility] Department of Radiology [address] [place] [phone] == Patient Name: ORALIA WHITFIELD : 1980 Sex: F Age: Race: White Pt. Location: Patient Status: O Ordered Date: 02/03/2021 11:20:00 AM Completed Date: 02/03/2021 11:32 AM Requesting Provider: LA MCKINNON Attending Provider: LA MCKINNON Report Copy To: Signs & Symptoms: S92.345A Nondisp fx of fourth metatarsal bone, left foot, init I10 History: Comments: Evaluate Exam: FOOT LEFT 3 [facility] == FOOT LEFT 3 S [...] necks. Electronically signed: Devon Allan. Transcribed by: [email or web address], User Resident: Electronically Signed by: DEVON ALLAN @ 02/03/2021 12:49 PM Normal [facility] Comment on above: Order Comment: Evalu ate FOOT LEFT 3 [facility] 01-06-2021 FOOT LEFT 3 [facility] Department of Radiology [address] [place] [phone] == Patient Name: ORALIA WHITFIELD : 1980 Sex: F Age: Race: White Pt. Location: 84 Patient Status: O Ordered Date: 01/06/2021 9:45:00 AM Completed Date: 01/06/2021 09:49 AM Requesting Provider: LA MCKINNON Attending Provider: LA MCKINNON Report Copy To: Signs & Symptoms: S92.345A Nondisp fx of fourth metatarsal bone, left foot, init I10 History: Comments: evalaute Exam: FOOT LEFT 3 [facility] == FOOT LEFT 3 S [...] report. Electronically signed: Lenny Law. Transcribed by: [email or web address], User Resident: AAMIR LENTZ Electronically Signed by: LENNY LAW @ 01/06/2021 12:04 PM I personally read this/these film(s) with this resident Normal [facility] Comment on above: Order Comment: nacho wu FOOT LEFT 3 [facility] 12-16-2020 FOOT LEFT 3 [facility] Department of Radiology [address] [place] [phone] == Patient Name: ORALIA WHITFIELD : [...] fractures. Electronically signed: Lenny Law. Transcribed by: [email or web address], User Resident: Electronically Signed by: LENNY LAW @ 12/17/2020 10:25 AM Normal [facility] Comment on above: Order Comment: Evalu ate Urine Cultureon 12-02-2020 Bacteria identified Cx Nom (U) Final report Critically abnormal . [facility] Comment on above: Order Comment: Reaso n for Exam Urge incontinence of urine Performed By: #### U RINE CULTURE #### [facility] , Ur Cult Antimic Suceptibility Normal . [facility] Comment on above: Order Comment: Reaso [...] Tobramycin S Trimethoprim/Sulfa S Performed at: - [facility] [id number] Research Aide: Kodak Tracy PhD, Phone: [phone] PERFORMED BY: [place] [address] PATHOLOGIST FREELANCE PHOTOGRAPHER ROSA ISELA GORE M.D. Performed By: #### U RINE CULTURE #### [facility] , Urine Culture, Res 1 Escherichia coli Critically abnormal . [facility] Comment on above: Order Comment: Reaso [...] 3V*on 021 XR foot LT min 3V* [facility] [place] [address] XRay Report Signed Patient: Oralia Whitfield MR#: [id number] : 1980 Acct:[id number] Age/Sex: 40 / F ADM Date: 12/02/20 Loc: XDUCLY Room: Type: [facility] Attending Dr: Lucero DEGROOT Ordering Provider: [...] Modesto Jones M.D.12/02/2020 5:14 PM Dictation Location: [place] [address] Transcribed By: [facility] 12/02/201713 Dictated By: Modesto Jones DO 12/02/201706 Signed By: 12/02/201713 [facility] Urine Cultureon 09-05-2020 Bacteria identified Cx Nom (U) Reason for Exam Dysuria Urine Reason for Exam: Dysuria : Urine ORGANISM: Escherichia coli (O:ESCCOL) [place] Count >100,000 Aerobic LYNNE Charge (NUC86) - [...] RESISTANT TO ALL B-LACTAM DRUGS. PERFORMED BY: [facility] [address] [place] [address] PATHOLOGIST FREELANCE PHOTOGRAPHER ROSA ISELA GORE M.D. [facility] Comment on above: Performed By: #### C UU #### [facility] [address] [place] [address] [facility] XR WRIST RIGHT MINIMUM 3 VIE WSon 10-09-2017 XR WRIST RIGHT MINIMUM 3 VIEWS CLINICAL: Status post fall. Fracture risk. Status post attempted reduction.COMPARISON: Earlier radiographs TECHNIQUE: 3 views of the right wrist FINDINGS: There is attempted reduction with persistent mal- alignment of the fracture site..IMPRESSION:Persist ent displacement of the fracturesWorkstation ID:[id number] fell. Post reduction. Patient has autism and is MRDD. Tech held for films best images possible. Normal [facility] XR WRIST RIGHT MINIMUM 3 VIEWS CLINICAL: Right wrist fracture, post reduction.COMPARISON: Earlier radiographs TECHNIQUE: 3 views of the right wrist FINDINGS: There is interval reduction of the distal radius fracture. There is improved alignment..IMPRESSION:Po st reductionWorkstation ID:[id number] attempt post reduction of right wrist fx. Held for images by tech. Normal [facility] CT HEAD WITHOUT CONTRASTon 0 10-08-2017 [...] lesions. IMPRESSION: No acute intracranial injury detected.Workstation ID:[id number] ambulated to triage desk with mom. 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 Has head & R wrist inj. Mom denies LOC. Pt has abrasions above R eyebrow, & under R eye, is bleeding from her nose, & has a deformity to her R wrist. Mom said pt is autistic, and MRDD. Mx: noneSx: noneNoncontrastabg-c Normal [facility] CT MAXILLOFACIAL / SINUS WIT HOUT [...] fracture seen IMPRESSION:Negative for facial fracture. Workstation ID:[id number] ambulated to triage desk with mom. 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 Has head & R wrist inj. Mom denies LOC. Pt has abrasions above R eyebrow, & under R eye, is bleeding from her nose, & has a deformity to her R wrist. Mom said pt is autistic, and MRDD. Mx: noneSx: noneNoncontrastabg-c [facility] CT SPINE CERVICAL WITHOUT CO NTRASTon [...] of cervical lordosis.IMPRESSION:No acute osseous injury seen.Workstation ID:[id number] ambulated to triage desk with mom. 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 Has head & R wrist inj. Mom denies LOC. Pt has abrasions above R eyebrow, & under R eye, is bleeding from her nose, & has a deformity to her R wrist. Mom said pt is autistic, and MRDD. Mx: noneSx: noneNoncontrastabg-c [facility] XR CHEST PA OR AP 1 VIEW (PO RTABLE)on 10-08-2017 XR CHEST PA OR AP 1 VIEW (PORTABLE) CLINICAL: Fell out of a truck.COMPARISON: noneTECHNIQUE: AP portable chestFINDINGS:The lungs are clear. 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 Right wrist injury, obvious deformity. Mom denies LOC. Mom said pt is autistic, and MRDD. Poor historian. Normal [facility] XR PELVIS 1 OR 2 VIEWSon XR PELVIS 1 OR 2 VIEWS CLINICAL: Patient fell out of a truck.COMPARISON: NoneTECHNIQUE: AP pelvisFINDINGS:The osseous pelvis is intact. Hip alignment is anatomic, and the sacroiliac joints are unremarkable. 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 Right wrist injury, obvious deformity. Mom denies LOC. Mom said pt is autistic, and MRDD. Poor historian. Normal [facility] XR WRIST RIGHT MINIMUM 3 VIE WSon 10-08-2017 XR WRIST RIGHT MINIMUM 3 VIEWS CLINICAL: Fell out of a truck. 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 Right wrist injury, obvious deformity. Mom denies LOC. Mom said pt is autistic, and MRDD. Poor historian. Normal [facility] Encounters Encounter Date Encounter Type Care Provider Facility Start: 06-26-2024 End: 06-26-2024 ambulatory Rashi Gruber MD Facility:[facility] Start: 05-31-2024 End: 05-31-2024 ambulatory Rashi Gruber MD Facility:[facility] Start: 04-30-2024 End: 04-30-2024 ambulatory Rashi Gruber MD Facility:[facility] Start: 03-27-2024 End: 03-27-2024 ambulatory Rashi Gruber MD Facility:[facility] Start: 03-19-2024 End: 03-19-2024 ambulatory Wayne Coornel MD Facility:[facility] Start: 02-09-2024 End: 02-09-2024 ambulatory Rosa Saenz APRN-GROUP MANAGER Facility:[facility] Start: 2024 End: 2024 ambulatory Wayne Coronel MD Facility:[facility] Start: 01-02-2024 End: 01-02-2024 ambulatory Wayne Coronel MD Facility:[facility] Start: 12-26-2023 End: 12-26-2023 ambulatory Wayne Coronel MD Facility:[facility] Start: 11-14-2023 End: 11-14-2023 ambulatory Wayne Coronel MD Facility:[facility] Start: 11-11-2023 End: 11-11-2023 ambulatory Rosa Saenz TABLET MAKING MACHINE OPERATOR HELPER-GROUP MANAGER Facility:[facility] Start: 10-27-2023 End: 10-27-2023 ambulatory Roxana Blanco TABLET MAKING MACHINE OPERATOR HELPER-GROUP MANAGER Facility:[facility] Start: 10-05-2023 End: 10-05-2023 ambulatory Wayne Coronel MD Facility:[facility] Start: 09-01-2023 End: 09-01-2023 ambulatory Roxana Blanco TABLET MAKING MACHINE OPERATOR HELPER-GROUP MANAGER Facility:[facility] Start: 08-31-2023 End: 08-31-2023 ambulatory Wayen Coronel MD Facility:[facility] Start: 08-02-2023 End: 08-02-2023 ambulatory Wayne Coronel MD Facility:[facility] Start: 08-23-2022 End: 08-23-2022 ambulatory NICKIE DESHPANDE Facility: Start: 10-08-2017 End: 10-08-2017 Emergency department patient visit KIERAN DIAZ [facility] Plan of Treatment Date Care Activity Detail Author Start: 09-19-2024 ambulatory Ambulatory Facility:[facility] Payers Date Payer Category Payer Medicaid 2021 Medicare 1980 Unknown [id number] [id number] 1980 Unknown [id number] 2.. 840.1.098388.3.579.2.196 1980 Unknown [id number] .. 840.1.059554.3.579.2.196 1980 Unknown [id number] 2. 840.1.043762.3.579.2. 1980 Unknown [id number] 2.16 840.1.466044.3.579.2. 1982 Unknown [id number] 2. 840.1.090446.3.579.2. 1982 Unknown [id number] 2. 840.1.891784.3.579.2. 1980 Unknown [id number] 2. 840.1.439927.3.579.2. 1980 Unknown [id number] 2. 840.1.169288.3.579.2. 1980 Unknown [id number] 2.0.1.247274.3.579.2. 1980 Unknown [id number] 2. 840.1.170903.3.579.2. 1982 Unknown [id number] 2.0.1.815713.3.579.2. 1982 Unknown [id number] 2. 840.1.456624.3.579.2. 1982 Unknown [id number] 20.1.422601.3.579.2. 1982 Unknown [id number] 2. 840.1.268350.3.579.2. 1982 Unknown [id number] 2. 840.1.339183.3.579.2. 1982 Unknown [id number] 2. 840.1.820052.3.579.2. 1982 Unknown [id number] 2. 840.1.217599.3.579.2. 1982 Unknown [id number] 2. 840.1.451058.3.579.2. 1982 Unknown [id number] 2.16. 840.1.007551.3.579.2. 1982 Unknown [id number] 2.16. 840.1.066362.3.579.2.196 1982 Unknown [id number] 2.16. 840.1.883643.3.579.2. 1980 Unknown [id number] 2.16. 840.1.572341.3.579.2. 1980 Unknown [id number] 2.16. 840.1.304355.3.579.2.196 1957 Medicaid [id number] 1957 Medicare [id number] Medicare [id number] Clinical Note 08-23-2022 Note Date & Type [...] by: DELMY CHÁVEZ Date: 2022-08-23 12:45 [facility] Clinical Note 08-23-2022 Note Date [...] by: DELMY CHÁVEZ Date: 2022-08-23 12:45 [facility] Summary Purpose Family History No [...] DATE CREATED AUTHOR AUTHOR'S ORGANIZ ATION 02/04/2021 [facility] DATE CREATED AUTHOR AUTHOR'S ORGANIZ ATION 07/15/2021 [facility] DATE CREATED AUTHOR AUTHOR'S ORGANIZ ATION 08/24/2022 [facility] DATE CREATED AUTHOR AUTHOR'S ORGANIZ ATION 06/27/2024 [facility] FOR RECORDS PERTAINING TO PATIENTS WHO [...] BE BASED ON THE PRIMARY CLINICAL RECORDS. [facility] [employer] [facility]. provides no warranty or guarantee of the accuracy or completeness of information in this document.
== END 2024-07-23 11:06 | disposition home or self-care (01) ==
LOC: EC 11:06
PROVIDERS: Visit Provider Orthopaedic Surgery
DX: S52.502D Unspecified fracture of the lower end of left radius, subsequent encounter for closed fracture with routine healing (principal)
CPT/HCPCS: 73110

== ENCOUNTER 2024-08-27 09:13 | Outpatient (OUT) | payer MEDICARE, MEDICAID, SELFPAY ==
--- NOTE | 2024-08-27 09:14 | XR_ITS ---
[place] [address] Patient Name: ORALIA WHITFIELD MRN: [id number] date: 1980 Sex: F Assigned Patient Location: Current Patient Location: Accession/Order Number: [id number] Exam Date: 08/27/2024 09:56 Report Date: 08/27/2024 09:58 At the request of: DELMY JACINTO MD Procedure: XR wrist LT min 3V 3 views left wrist plain film COMPARISON: 07/23/2024 HISTORY: Follow-up on left wrist fracture ACUTE FINDINGS: Stable alignment. Subtle interval healing. Stable ulnar styloid fracture. DEGENERATIVE CHANGE: Unremarkable SOFT TISSUE FINDINGS: Unremarkable JOINT EFFUSION: None POSTOP CHANGES: Stable hardware BONE MINERALIZATION: Adequate XR/XR wrist LT min 3V IMPRESSION: Interval healing with stable alignment and hardware. Impression dictated by: Modesto Jones M.D.08/27/2024 9:58 AM Dictation Location: Managed by Q Electronically authenticated by: [id number] Y Date: 08/27/2024 09:58
--- OUTSIDE RECORDS SUMMARY | 2024-08-27 09:31 | XMS_ITS | CCD ---
Author Organization [facility] Care Team Providers Care Elevator Constructor Hydraulic Name Role Phone KIERAN DIAZ Unavailable Unavailable NICKIE DESHPANDE Admitting Unavailable NICKIE DESHPANDE Attending Unavailable INDY GRUBER Primary Care Unavailable NICKIE DESHPANDE Consulting Unavailable DR DELMY CHÁVEZ Consulting Unavailable Yasmani ANDRES, Rashi Nugent Primary Care Unavailable Rashi Gruber MD Attending Unavailable Dany ENRIQUEZ, Rosa James Attending Unavailable Rashi Gruber MD Primary Care Unavailable Dany ENRIQUEZ, Rosa James Attending Unavailable Rasih Gruber MD Primary Care Unavailable Francis ENRIQUEZ, [...] ANDRES, Rashi Nugent Attending Unavailable Yasmani ANDRES, Rsahi Nugent Primary Care Unavailable Yasmani ANDRES, Rashi Nugent Attending Unavailable Yasmani ANDRES, Rashi Nugent Primary Care Unavailable Allergies Allergy Classification Reported Allergen(s) Allergy Type Date of Onset Reaction(s) Facility (2 sources) Morphine; Translations: [morphine] Drug Allergy [facility] Repository Problems Active Problems Problem Classification Problem Date Documented Da te Episodic/Chronic Developmental disorders (1 source) Unspecified intellectual disabilities; Translations: [UNSPEC INTELLECTUAL DISABILITIES] Onset: 08-24-2022 Chronic E Codes: Fall (1 source) Unspecified fall, initial encounter; Translations: [UNSPECIFIED FALL INITIAL ENCOUNTER] Onset: 08-24-2022 Episodic Other aftercare (1 source) Other fci (current) drug therapy; Translations: [OTH AUTOMATIC PATTERN EDGER CURRENT DRUG THERAPY] Onset: 08-24-2022 Episodic Other [...] 10-08-2017 Unclassified (1 source) Head Injury / [id number]() Onset: 10-08-2017 Unclassified (1 source) Wrist Injury / [id number]() Onset: 10-08-2017 Unclassified (1 source) Unspecified fracture [...] MDRD (S/P/Bld) [Vol rate/Area] mL/min/{1.73_m2} Normal >=60 [facility] Comment on above: Order Comment: Order added by Discern rule Result Comment: [facility] have implemented the eGFR calculation [...] years Performed By: #### E GFR #### [address] [address] CBC w/ Diffon 06-26-2024 Erythrocyte distribution width (RBC) [Ratio] 15.0 % High 11.6-14.8 [facility] Comment on above: Performed By: #### C BC #### [address] [address] Hematocrit (Bld) [Volume fraction] 38.5 % Normal 36.0-46.0 [facility] Comment on above: Performed By: #### C BC #### [address] [address] Hemoglobin (Bld) [Mass/Vol] 12.9 g/dL Normal 12.0-16.0 [facility] Comment on above: Performed By: #### C BC #### [address] [address] MCH (RBC) [Entitic mass] 29.7 pg Normal 27.0-35.0 [facility] Comment on above: Performed By: #### C BC #### [address] [address] MCHC 33.5 % Normal 31.0-37.0 [facility] Comment on above: Performed By: #### C BC #### [address] [address] MCV (RBC) [Entitic vol] 88.5 fL Normal 80.0-100.0 [facility] Comment on above: Performed By: #### C BC #### [address] [address] Platelet 180 x10*3/mcL Normal 150-450 [facility] Comment on above: Performed By: #### C BC #### [address] [address] Platelet mean volume (Bld) [Entitic vol] 8.4 fL Normal 6.7-10.6 [facility] Comment on above: Performed By: #### C BC #### [address] [address] RBC 4.35 x10*6/mcL Normal 3.80-5.20 [facility] Comment on above: Performed By: #### C BC #### [address] [address] WBC 6.8 x10*3/mcL Normal 4.5-11.0 [facility] Comment on above: Performed By: #### C BC #### [address] [address] CMPon 06-26-2024 Albumin [Mass/Vol] 4.2 g/dL Normal 3.2-4.9 [facility] Comment on above: Performed By: #### . Automated Diff #### [address] [address] Albumin/Globulin [Mass ratio] 1.4 {ratio} Normal 1.1-2.2 [facility] Comment on above: Performed By: #### . Automated Diff #### [address] [address] Alk Phos 63 IU/L Normal 32-91 [facility] Comment on above: Performed By: #### . Automated Diff #### [address] [address] ALT [Catalytic activity/Vol] 23 U/L Normal 14-54 [facility] Comment on above: Performed By: #### . Automated Diff #### [address] [address] AST [Catalytic activity/Vol] 22 U/L Normal 15-41 [facility] Comment on above: Performed By: #### . Automated Diff #### [address] [address] Bili Total 0.3 mg/dL Normal 0.3-1.2 [facility] Comment on above: Performed By: #### . Automated Diff #### [address] [address] Protein [Mass/Vol] 7.2 g/dL Normal 6.5-8.1 [facility] Comment on above: Performed By: #### . Automated Diff #### [address] [address] Anion gap [Moles/Vol] 11 mmol/L Normal 4-12 [facility] Comment on above: Performed By: #### . Automated Diff #### [address] [address] Calcium [Mass/Vol] 10.2 mg/dL Normal 8.5-10.3 [facility] Comment on above: Performed By: #### . Automated Diff #### [address] [address] Chloride [Moles/Vol] 102 mmol/L Normal 98-110 [facility] Comment on above: Performed By: #### . Automated Diff #### [address] [address] CO2 [Moles/Vol] 23 mmol/L Normal 22-32 [facility] Comment on above: Performed By: #### . Automated Diff #### [address] [address] Creatinine [Mass/Vol] 0.85 mg/dL Normal 0.44-1.03 [facility] Comment on above: Performed By: #### . Automated Diff #### [address] [address] Glucose [Mass/Vol] 80 mg/dL Normal 70-99 [facility] Comment on above: Performed By: #### . Automated Diff #### [address] [place] [address] Potassium [Moles/Vol] 4.8 mmol/L Normal 3.4-4.8 [facility] Comment on above: Performed By: #### . Automated Diff #### [place] [id number] Sodium [Moles/Vol] 136 mmol/L Normal 133-142 [facility] Comment on above: Performed By: #### . Automated Diff #### [place] [id number] Urea nitrogen [Mass/Vol] 22 mg/dL Normal 8-26 [facility] Comment on above: Performed By: #### . Automated Diff #### [place] [id number] Urea nitrogen/Creatini ne [Mass ratio] 25.9 mg/mg High 10.0-20.0 [facility] Comment on above: Performed By: #### . Automated Diff #### [place] [id number] Diff Autoon 06-26-2024 Baso Absolute 0.0 x10*3/mcL Normal 0.0-0.2 [facility] Comment on above: Performed By: #### . Automated Diff #### [address] [address] Basophils/100 WBC (Bld) 0.3 % Normal 0.0-1.5 [facility] Comment on above: Performed By: #### . Automated Diff #### [address] [address] Eos Absolute 0.0 x10*3/mcL Normal 0.0-0.4 [facility] Comment on above: Performed By: #### . Automated Diff #### [address] [address] Eosinophils/100 WBC (Bld) 0.6 % Normal 0.0-5.4 [facility] Comment on above: Performed By: #### . Automated Diff #### [address] [address] Lymph Absolute 2.1 x10*3/mcL Normal 1.0-4.8 [facility] Comment on above: Performed By: #### . Automated Diff #### [address] [address] Lymphocytes/100 WBC (Bld) 31.7 % Normal 27.2-40.8 [facility] Comment on above: Performed By: #### . Automated Diff #### [address] [address] [place] Absolute 0.5 x10*3/mcL Normal 0.1-1.1 [facility] Comment on above: Performed By: #### . Automated Diff #### [address] [address] Monocytes/100 WBC (Bld) 7.1 % Normal 3.7-11.9 [facility] Comment on above: Performed By: #### . Automated Diff #### [address] [address] Neutro Absolute 4.1 x10*3/mcL Normal 1.8-7.7 [facility] Comment on above: Performed By: #### . Automated Diff #### [place] [id number] Neutro Auto 60.3 % Normal 47.2-70.8 [facility] Comment on above: Performed By: #### . Automated Diff #### [place] [id number] Family Medicine Office/Clini c Noteon 06-26-2024 Family [...] inactivated 02/28 (more content not included)... Normal [facility] Hgb A1con 06-26-2024 Glucose [Mass/Vol] 108 mg/dL Normal 68-114 [facility] Comment on above: Result Comment: Math ematical Calc approx. The mean gluc equivalency of A1c Performed By: #### H BA1C #### [address] [address] Hgb A1c 5.4 % A1c Normal 4.0-5.6 [facility] Comment on above: Result Comment: Refe rence Range: 4.0 - 5.6 % Normal 5.7 - 6.4 % Pre-Diabetes > 6.5 % Diabetes Performed By: #### H BA1C #### [address] [address] Lipid Panelon 06-26-2024 Cholesterol in LDL [Mass/Vol] 88 mg/dL Normal 0-99 [facility] Comment on above: Result Comment: The equation being used in this calculation is LDL = (Chol - HDL) - (Trig / 5) The optimal value of LDL for individual patients may vary. The patient's history of Artherosclerosis and other cardiac risk factors should be considered. Performed By: #### . Automated Diff #### [address] [address] Cardiac Risk 3.1 Normal [facility] Comment on above: Result Comment: Men Women 1/2 Average 3.43 3.27 Average 4.97 4.44 2x Average 9.55 7.05 3x Average 23.99 11.04 Performed By: #### . Automated Diff #### [address] [address] Cholesterol [Mass/Vol] 166 mg/dL Normal 25-199 [facility] Comment on above: Result Comment: 0 - 17 years of age: Desirable 0-170 Borderline High 170-199 High >=200 18 years and older: Acceptable <200 Borderline High 200-239 High >=240 Performed By: #### . Automated Diff #### [address] [address] Cholesterol in HDL [Mass/Vol] 53.8 mg/dL Normal 40.0-60.0 [facility] Comment on above: Performed By: #### . Automated Diff #### [address] [address] Cholesterol in VLDL [Mass/Vol] 24 mg/dL Normal 8-39 [facility] Comment on above: Performed By: #### . Automated Diff #### [address] [address] Triglyceride [Mass/Vol] 120 mg/dL Normal [facility] Comment on above: Result Comment: 0 - 17 years of age: Trig 90 - 129 Borderline High Trig => 130 High 18 years and older: Trig 150 - 199 Borderline High Trig 200 - 499 High Trig =>500 Very High Performed By: #### . Automated Diff #### [address] [address] TSHon 06-26-2024 TSH Qn 1.17 m[IU]/L Normal 0.45-5.33 [facility] Comment on above: Result Comment: Refe rence Ranges for individuals from to 18 years of age were obtained from The Stacy Hilton Handbook (20 ed) published by [facility]. Reference Ranges for Females: Females, 1st Trimester 0.05 ? 3.7 uIU/mL Females, 2nd Trimester 0.31 ? 4.35 uIU/mL Females, 3rd Trimester 0.41 ? 5.18 uIU/mL Performed By: #### . Automated Diff #### [address] [address] Urology Office/Clinic Noteon 02-09-2024 Urology Office/Clinic Note [...] Daily, # 30 tabs, 12 Refill(s), Pharmacy: [facility] Medical Decision Making Chronic conditions NOT [...] RIVERAN-PALLAVI, Rosa James 02/09/24 11:32 EDT Normal [facility] .eGFRon 12-26-2023 GFR/1.73 sq M.predicted MDRD (S/P/Bld) [Vol rate/Area] mL/min/{1.73_m2} Normal >=60 [facility] Comment on above: Result Comment: [facility] have implemented the eGFR calculation [...] Performed By: #### . Automated Diff #### [address] [address] Basic Metabolic Profileon Anion gap [Moles/Vol] 9 mmol/L Normal 4-12 [facility] Comment on above: Performed By: #### . Automated Diff #### [address] [address] Calcium [Mass/Vol] 9.5 mg/dL Normal 8.5-10.3 [facility] Comment on above: Performed By: #### . Automated Diff #### [address] [address] Chloride [Moles/Vol] 100 mmol/L Normal 98-110 [facility] Comment on above: Performed By: #### . Automated Diff #### [address] [address] CO2 [Moles/Vol] 24 mmol/L Normal 22-32 [facility] Comment on above: Performed By: #### . Automated Diff #### [address] [address] Creatinine [Mass/Vol] 0.86 mg/dL Normal 0.44-1.03 [facility] Comment on above: Performed By: #### . Automated Diff #### [address] [address] Glucose [Mass/Vol] 82 mg/dL Normal 70-99 [facility] Comment on above: Performed By: #### . Automated Diff #### [address] [address] Potassium [Moles/Vol] 4.4 mmol/L Normal 3.4-4.8 [facility] Comment on above: Performed By: #### . Automated Diff #### [address] [address] Sodium [Moles/Vol] 133 mmol/L Normal 133-142 [facility] Comment on above: Performed By: #### . Automated Diff #### [address] [address] Urea nitrogen [Mass/Vol] 16 mg/dL Normal 8-26 [facility] Comment on above: Performed By: #### . Automated Diff #### [address] [address] Urea nitrogen/Creatini ne [Mass ratio] 18.6 mg/mg Normal 10.0-20.0 [facility] Comment on above: Performed By: #### . Automated Diff #### [address] [address] CBC w/ Diffon 12-26-2023 Erythrocyte distribution width (RBC) [Ratio] 14.9 % High 11.6-14.8 [facility] Comment on above: Performed By: #### . Automated Diff #### [place] [id number] Hematocrit (Bld) [Volume fraction] 37.8 % Normal 36.0-46.0 [facility] Comment on above: Performed By: #### . Automated Diff #### [place] [id number] Hemoglobin (Bld) [Mass/Vol] 12.4 g/dL Normal 12.0-16.0 [facility] Comment on above: Performed By: #### . Automated Diff #### [place] [id number] MCH (RBC) [Entitic mass] 30.2 pg Normal 27.0-35.0 [facility] Comment on above: Performed By: #### . Automated Diff #### [place] [address] MCHC 32.9 % Normal 31.0-37.0 [facility] Comment on above: Performed By: #### . Automated Diff #### [place] [id number] MCV (RBC) [Entitic vol] 91.7 fL Normal 80.0-100.0 [facility] Comment on above: Performed By: #### . Automated Diff #### [place] [id number] Platelet 149 x10*3/mcL Low 150-450 [facility] Comment on above: Performed By: #### . Automated Diff #### [address] [address] Platelet mean volume (Bld) [Entitic vol] 8.7 fL Normal 6.7-10.6 [facility] Comment on above: Performed By: #### . Automated Diff #### [address] [address] RBC 4.12 x10*6/mcL Normal 3.80-5.20 [facility] Comment on above: Performed By: #### . Automated Diff #### [address] [address] WBC 6.0 x10*3/mcL Normal 4.5-11.0 [facility] Comment on above: Performed By: #### . Automated Diff #### [address] [address] Diff Autoon 12-26-2023 Baso Absolute 0.0 x10*3/mcL Normal 0.0-0.2 [facility] Comment on above: Performed By: #### . Automated Diff #### [address] [address] Basophils/100 WBC (Bld) 0.5 % Normal 0.0-1.5 [facility] Comment on above: Performed By: #### . Automated Diff #### [address] [address] Eos Absolute 0.1 x10*3/mcL Normal 0.0-0.4 [facility] Comment on above: Performed By: #### . Automated Diff #### [address] [address] Eosinophils/100 WBC (Bld) 2.4 % Normal 0.0-5.4 [facility] Comment on above: Performed By: #### . Automated Diff #### [address] [address] Lymph Absolute 2.4 x10*3/mcL Normal 1.0-4.8 [facility] Comment on above: Performed By: #### . Automated Diff #### [address] [address] Lymphocytes/100 WBC (Bld) 40.2 % Normal 27.2-40.8 [facility] Comment on above: Performed By: #### . Automated Diff #### [address] [address] [place] Absolute 0.5 x10*3/mcL Normal 0.1-1.1 [facility] Comment on above: Performed By: #### . Automated Diff #### [address] [address] Monocytes/100 WBC (Bld) 7.8 % Normal 3.7-11.9 [facility] Comment on above: Performed By: #### . Automated Diff #### [address] [address] Neutro Absolute 2.9 x10*3/mcL Normal 1.8-7.7 [facility] Comment on above: Performed By: #### . Automated Diff #### [address] [address] Neutro Auto 49.1 % Normal 47.2-70.8 [facility] Comment on above: Performed By: #### . Automated Diff #### [address] [address] Hep Func Panelon 12-26-2023 Albumin [Mass/Vol] 4.4 g/dL Normal 3.2-4.9 [facility] Comment on above: Performed By: #### L IVER #### [address] [address] Alk Phos 58 IU/L Normal 32-91 [facility] Comment on above: Performed By: #### L IVER #### [address] [address] ALT [Catalytic activity/Vol] 36 U/L Normal 14-54 [facility] Comment on above: Performed By: #### L IVER #### [address] [address] AST [Catalytic activity/Vol] 27 U/L Normal 15-41 [facility] Comment on above: Performed By: #### L IVER #### [address] [address] Bili Direct 0.1 mg/dL Normal 0.1-0.5 [facility] Comment on above: Performed By: #### L IVER #### [address] [address] Bili Indirect 0.4 mg/dL Normal 0.0-1.0 [facility] Comment on above: Performed By: #### L IVER #### [address] [address] Bili Total 0.5 mg/dL Normal 0.3-1.2 [facility] Comment on above: Performed By: #### L IVER #### [address] [address] Protein [Mass/Vol] 7.8 g/dL Normal 6.5-8.1 [facility] Comment on above: Performed By: #### L IVER #### [address] [address] TSHon 12-26-2023 TSH Qn 2.13 m[IU]/L Normal 0.45-5.33 [facility] Comment on above: Result Comment: Refe rence Ranges for individuals from to 18 years of age were obtained from The Stacy Hilton Handbook (20 ed) published by [facility]. Reference Ranges for Females: Females, 1st Trimester 0.05 ? 3.7 uIU/mL Females, 2nd Trimester 0.31 ? 4.35 uIU/mL Females, 3rd Trimester 0.41 ? 5.18 uIU/mL Performed By: #### T SH #### [address] [address] Valproicon 12-26-2023 Valproic Acid Level 102.3 mcg/mL High 50.0-100.0 [facility] Comment on above: Performed By: #### V AL #### [address] [address] Urology Office/Clinic Noteon 11-11-2023 Urology Office/Clinic Note [...] : deferred recent pelvic exam performed by [facility], negative findings per their report Additional Vitals [...] chew, # 30 tabs, 0 Refill(s), Pharmacy: [facility] Medical Decision Making Chronic conditions NOT [...] See Instructio (more content not included)... Normal [facility] Gynecology Office/Clinic Not black 09-01-2023 Gynecology Office/Clinic Note Chief Complaint UI, Hx hyst 2006. History of Present Illness Here with Plaster Foreman non verbal hyst with ovaries removed. Plaster Foreman reports she is sedentary start UI again after trip to [facility] and [facility]. Macrobid daily Review of Systems [...] symptoms after ATB and re training bladder. 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 Normal [facility] FOOT LEFT 3 [facility] 02-03-2021 FOOT LEFT 3 [facility] Department of Radiology [address] [place] [phone] == Patient Name: ORALIA WHITFIELD : 1980 Sex: F Age: Race: White Pt. Location: Patient Status: O Ordered Date: 02/03/2021 11:20:00 AM Completed Date: 02/03/2021 11:32 AM Requesting Provider: LA MCKINNON Attending Provider: LA MCKINNON Report Copy To: Signs & Symptoms: S92.345A Nondisp fx of fourth metatarsal bone, left foot, init I10 History: Comments: Evaluate Exam: FOOT LEFT 3 [facility] == FOOT LEFT 3 S [...] necks. Electronically signed: Devon Allan. Transcribed by: [email or web address], User Resident: Electronically Signed by: DEVON ALLAN @ 02/03/2021 12:49 PM Normal [facility] Comment on above: Order Comment: Evalu ate FOOT LEFT 3 [facility] 01-06-2021 FOOT LEFT 3 [facility] Department of Radiology [address] [place] [phone] == Patient Name: ORALIA WHITFIELD : 1980 Sex: F Age: Race: White Pt. Location: 84 Patient Status: O Ordered Date: 01/06/2021 9:45:00 AM Completed Date: 01/06/2021 09:49 AM Requesting Provider: LA MCKINNON Attending Provider: LA MCKINNON Report Copy To: Signs & Symptoms: S92.345A Nondisp fx of fourth metatarsal bone, left foot, init I10 History: Comments: evalaute Exam: FOOT LEFT 3 [facility] == FOOT LEFT 3 S [...] report. Electronically signed: Lenny Law. Transcribed by: [email or web address], User Resident: AAMIR LENTZ Electronically Signed by: LENNY LAW @ 01/06/2021 12:04 PM I personally read this/these film(s) with this resident Normal [facility] Comment on above: Order Comment: nacho wu FOOT LEFT 3 [facility] 12-16-2020 FOOT LEFT 3 [facility] Department of Radiology [address] [place] [phone] == Patient Name: ORALIA WHITFIELD : [...] fractures. Electronically signed: Lenny Law. Transcribed by: [email or web address], User Resident: Electronically Signed by: LENNY LAW @ 12/17/2020 10:25 AM Normal [facility] Comment on above: Order Comment: Evalu ate Urine Cultureon 12-02-2020 Bacteria identified Cx Nom (U) Final report Critically abnormal . [facility] Comment on above: Order Comment: Reaso n for Exam Urge incontinence of urine Performed By: #### U RINE CULTURE #### [facility] , Ur Cult Antimic Suceptibility Normal . [facility] Comment on above: Order Comment: Reaso [...] Tobramycin S Trimethoprim/Sulfa S Performed at: - [facility] [id number] Director It: Kodak Tracy PhD, Phone: [phone] PERFORMED BY: [place] [address] PATHOLOGIST COMPOSITION PROFESSOR ROSA ISELA GORE M.D. Performed By: #### U RINE CULTURE #### [facility] , Urine Culture, Res 1 Escherichia coli Critically abnormal . [facility] Comment on above: Order Comment: Reaso [...] 3V*on 021 XR foot LT min 3V* [facility] [address] XRay Report Signed Patient: Oralia Whitfield MR#: [id number] : 1980 Acct:[id number] Age/Sex: 40 / F ADM Date: 12/02/20 Loc: XDUCLY Room: [facility]: [facility] Attending Dr: Lucero DEGROOT Ordering Provider: [...] M.D.12/02/2020 5:14 PM Dictation Location: [place] [address] Transcribed By: [facility] 12/02/201713 Dictated By: Modesto Jones DO 12/02/201706 Signed By: 12/02/201713 [facility] Urine Cultureon 09-05-2020 Bacteria identified Cx Nom (U) Reason for Exam Dysuria Urine Reason for Exam: Dysuria : Urine ORGANISM: Escherichia coli (O:ESCCOL) [place] Count >100,000 Aerobic LYNNE Charge (NUC86) - [...] RESISTANT TO ALL B-LACTAM DRUGS. PERFORMED BY: [facility] [address] [place] [address] PATHOLOGIST COMPOSITION PROFESSOR ROSA ISELA GORE M.D. [facility] Comment on above: Performed By: #### C UU #### [facility] [address] [place] [address] [facility] XR WRIST RIGHT MINIMUM 3 VIE WSon 10-09-2017 XR WRIST RIGHT MINIMUM 3 VIEWS CLINICAL: Status post fall. Fracture risk. Status post attempted reduction.COMPARISON: Earlier radiographs TECHNIQUE: 3 views of the right wrist FINDINGS: There is attempted reduction with persistent mal- alignment of the fracture site..IMPRESSION:Persist ent displacement of the fracturesWorkstation ID:[id number] fell. Post reduction. Patient has autism and is MRDD. Tech held for films best images possible. Normal [facility] XR WRIST RIGHT MINIMUM 3 VIEWS CLINICAL: Right wrist fracture, post reduction.COMPARISON: Earlier radiographs TECHNIQUE: 3 views of the right wrist FINDINGS: There is interval reduction of the distal radius fracture. There is improved alignment..IMPRESSION:Po st reductionWorkstation ID:[id number] attempt post reduction of right wrist fx. Held for images by tech. Normal [facility] CT HEAD WITHOUT CONTRASTon 0 10-08-2017 [...] lesions. IMPRESSION: No acute intracranial injury detected.Workstation ID:[id number] ambulated to triage desk with mom. Mom stated pt fell out of a sweet pickle maker truck while holding her lunch. Has head & R wrist inj. Mom denies LOC. Pt has abrasions above R eyebrow, & under R eye, is bleeding from her nose, & has a deformity to her R wrist. Mom said pt is autistic, and MRDD. Mx: noneSx: noneNoncontrastabg-c Normal [facility] CT MAXILLOFACIAL / SINUS WIT HOUT [...] fracture seen IMPRESSION:Negative for facial fracture. Workstation ID:[id number] ambulated to triage desk with mom. Mom stated pt fell out of a sweet pickle maker truck while holding her lunch. Has head & R wrist inj. Mom denies LOC. Pt has abrasions above R eyebrow, & under R eye, is bleeding from her nose, & has a deformity to her R wrist. Mom said pt is autistic, and MRDD. Mx: noneSx: noneNoncontrastabg-c [facility] CT SPINE CERVICAL WITHOUT CO NTRASTon [...] of cervical lordosis.IMPRESSION:No acute osseous injury seen.Workstation ID:[id number] ambulated to triage desk with mom. Mom stated pt fell out of a sweet pickle maker truck while holding her lunch. Has head & R wrist inj. Mom denies LOC. Pt has abrasions above R eyebrow, & under R eye, is bleeding from her nose, & has a deformity to her R wrist. Mom said pt is autistic, and MRDD. Mx: noneSx: noneNoncontrastabg-c [facility] XR CHEST PA OR AP 1 VIEW (PO RTABLE)on 10-08-2017 XR CHEST PA OR AP 1 VIEW (PORTABLE) CLINICAL: Fell out of a truck.COMPARISON: noneTECHNIQUE: AP portable chestFINDINGS:The lungs are clear. Pulmonary vascularity is normal.IMPRESSION: No acute lung lesion seen.Workstation ID:[id number] stated patient fell out of a sweet pickle maker truck while holding her lunch. Right wrist injury, obvious deformity. Mom denies LOC. Mom said pt is autistic, and MRDD. Poor historian. Normal [facility] XR PELVIS 1 OR 2 VIEWSon XR PELVIS 1 OR 2 VIEWS CLINICAL: Patient fell out of a truck.COMPARISON: NoneTECHNIQUE: AP pelvisFINDINGS:The osseous pelvis is intact. Hip alignment is anatomic, and the sacroiliac joints are unremarkable. IMPRESSION: Unremarkable AP pelvis x-rays.Workstation ID:[id number] stated patient fell out of a sweet pickle maker truck while holding her lunch. Right wrist injury, obvious deformity. Mom denies LOC. Mom said pt is autistic, and MRDD. Poor historian. Normal [facility] XR WRIST RIGHT MINIMUM 3 VIE WSon 10-08-2017 XR WRIST RIGHT MINIMUM 3 VIEWS CLINICAL: Fell out of a truck. Right wrist pain and injuryCOMPARISON: None TECHNIQUE: 3 views of the right wrist FINDINGS: There is comminuted displaced fracture of the distal radius and an avulsion fracture of the ulnar styloid..IMPRESSION:Frac ture distal radius and ulna styloid processWorkstation ID:[id number] stated patient fell out of a sweet pickle maker truck while holding her lunch. Right wrist injury, obvious deformity. Mom denies LOC. Mom said pt is autistic, and MRDD. Poor historian. Normal [facility] Encounters Encounter Date Encounter Type Care Provider Facility Start: 09-19-2024 ambulatory Roxana Blanco [employer] Facility:[facility] Start: 07-31-2024 End: 07-31-2024 ambulatory Wayne Coronel MD Facility[facility] Start: 06-26-2024 End: 06-26-2024 ambulatory Rashi Gruber MD Facility:[facility] Start: 05-31-2024 End: 05-31-2024 ambulatory Rashi Gruber MD Facility:[facility] Start: 04-30-2024 End: 04-30-2024 ambulatory Rashi Gruber MD Facility:[facility] Start: 03-27-2024 End: 03-27-2024 ambulatory Rashi Gruber MD Facility:[facility] Start: 03-19-2024 End: 03-19-2024 ambulatory Wayne Coronel MD Facility:[facility] Start: 02-09-2024 End: 02-09-2024 ambulatory Rosa Saenz [employer] Facility:[facility] Start: 2024 End: 2024 ambulatory Wayne Coronel MD Facility:[facility] Start: 01-02-2024 End: 01-02-2024 ambulatory Wayne Coronel MD Facility:[facility] Start: 12-26-2023 End: 12-26-2023 ambulatory Wayne Coronel MD Facility:[facility] Start: 11-14-2023 End: 11-14-2023 ambulatory Wayne Coronel MD Facility:[facility] Start: 11-11-2023 End: 11-11-2023 ambulatory Rosa Saenz [employer] Facility:[facility] Start: 10-27-2023 End: 10-27-2023 ambulatory Roxana Blanco [employer] Facility:[facility] Start: 10-05-2023 End: 10-05-2023 ambulatory Wayne Coronel MD Facility:[facility] Start: 09-01-2023 End: 09-01-2023 ambulatory Roxana Blanco [employer] Facility:[facility] Start: 08-31-2023 End: 08-31-2023 ambulatory Wayne Coronel MD Facility:[facility] Start: 08-23-2022 End: 08-23-2022 ambulatory NICKIE DESHPANDE Facility: Start: 10-08-2017 End: 10-08-2017 [facility] Date Payer Category Payer Medicaid 2021 Medicare 1980 Unknown [id number] 1980 Unknown [id number] 2.16. 840.1.818256.3.579.2.196 1982 Unknown [id number] . 840.1.082277.3.579.2.196 1982 Unknown [id number] 2.16 840.1.298612.3.579.2. 1982 Unknown [id number] 2.16 840.1.321244.3.579.2. 1982 Unknown [id number] 2.16 840.1.987898.3.579.2. 1982 Unknown [id number] 2.16 840.1.779520.3.579.2. 1982 Unknown [id number] 2. 840.1.826847.3.579.2. 1982 Unknown [id number] 2. 840.1.374849.3.579.2. 1982 Unknown [id number] 2. 840.1.515107.3.579.2. 1982 Unknown [id number] 2. 840.1.105051.3.579.2. 1982 Unknown [id number] 2.0.1.954735.3.579.2. 1982 Unknown [id number] 2. 840.1.212115.3.579.2. 1982 Unknown [id number] 2.0.1.175801.3.579.2. 1982 Unknown [id number] 2. 840.1.787697.3.579.2.196 1982 Unknown [id number] 2. 840.1.409564.3.579.2. 1982 Unknown [id number] 2. 840.1.488753.3.579.2. 1982 Unknown [id number] 2. 840.1.784940.3.579.2. 1982 Unknown [id number] 2. 840.1.072448.3.579.2. 1982 Unknown [id number] 2.16. 840.1.545210.3.579.2. 1982 Unknown [id number] 2.16. 840.1.025110.3.579.2.196 1982 Unknown [id number] 2.16. 840.1.302825.3.579.2. 1982 Unknown [id number] 2.16. 840.1.944938.3.579.2. 1982 Unknown [id number] 2.16. 840.1.539683.3.579.2.196 1957 Medicaid [id number] 1957 Medicare [id number] Medicare [id number] Clinical Note 08-23-2022 Note Date & Type [...] DELMY CHÁVEZ Date: 2022-08-23 12:45 [facility] Clinical Note 08-23-2022 Note Date [...] DELMY CHÁVEZ Date: 2022-08-23 12:45 [facility] Summary Purpose Family History No [...] DATE CREATED AUTHOR AUTHOR'S ORGANIZ ATION 02/04/2021 [facility] DATE CREATED AUTHOR AUTHOR'S ORGANIZ ATION 07/15/2021 [facility] DATE CREATED AUTHOR AUTHOR'S ORGANIZ ATION 08/24/2022 [facility] DATE CREATED AUTHOR AUTHOR'S ORGANIZ ATION 08/01/2024 [facility] FOR RECORDS PERTAINING TO PATIENTS WHO [...] BE BASED ON THE PRIMARY CLINICAL RECORDS. [facility] [employer] [facility]. provides no warranty or guarantee of the accuracy or completeness of information in this document.
== END 2024-08-27 09:14 | disposition home or self-care (01) ==
LOC: EC 09:13
PROVIDERS: Visit Provider Orthopaedic Surgery
DX: S52.509D Unspecified fracture of the lower end of unspecified radius, subsequent encounter for closed fracture with routine healing (principal); S52.572D Other intraarticular fracture of lower end of left radius, subsequent encounter for closed fracture with routine healing
CPT/HCPCS: 73110